=== PATIENT | female | born 1970 | race Caucasian/White ===

== ENCOUNTER 2016-11-12 04:37 | Inpatient (IN) | payer OTHER ==
[~2016-11-12] VITALS: Ht 165.1 cm; Wt 74.5 kg
[~2016-11-12 04:37] MED LIST: GABA300C PO
[2016-11-16 20:52] VITALS: BP 115/73; RESP 18
[2016-11-16] MEDS ORDERED: ONDANSETRON 4 MG INJ IV PRN (22:00)
[2016-11-16] MEDS ORDERED: ALBUTEROL 0.083% (NEB) 2.5 MG/3 ML AMP HHN PRN (22:00)
[2016-11-16] MEDS ORDERED: LACTULOSE 30ML CUP PO PRN (22:00)
[2016-11-16] MEDS ORDERED: NACL 0.9% 3 ML SYG IV SCH (22:00)
--- NOTE | 2016-11-16 22:00 | HP ---
Date/Time of Note Date/Time of Note DATE: 11/16/16 TIME: 21:59 Assessment/Plan VTE Prophylaxis VTE Prophylaxis Intervention: anti-embolic stocking Assessment/Plan Assessment/Plan 1) Metabolic Encephalopathy - Admit to Med-Surg - Labs now: CBC, CMP, Ammonia, PT/INR, UA - Continue all medications that were recommended upon transfer to us. 2) Cirrhosis/Chronic Liver Failure with history of multiple paracenteses 3) Amphetamine Abuse - Monitor/be prepared for withdrawl symptoms 4) Psychiatric Problem - Consider Psych eval if her mentation improved - Consider Social Service/Discharge Planning evaluation 5) UTI (treated at [facility], asymptomatic) - UA ordered to confirm cure. HPI/ROS Admit Date/Time Admit Date/Time Nov 16, 2016 at 20:10 Hx of Present Illness This is a 46 year old female with known liver cirrhosis and drug abuse, methamphetamine in particular, who is a Direct Admit as a transfer patient from [facility] for capitation purposes. She was originally admitted there on 11/11/16 and presented with multiple complaints, most specifically, abdominal pain and all-over body pain. Ultimately, she was found to have an E. coli UTI that was treated and Metabolic Encephalopathy that seems to have become worse a day or so before this transfer was arranged. She had multiple other diagnoses. During that stay, she was Consulted on by Neurology. Review of the records from [place] show that she is well-known to EMS and that she looks worse and that her health seems to be declining. She recently spent 9 months in a SNF but was "discharged to ". They called [facility] at and the front dest lady said she left [facility] and [facility] she was there on Hospice but that she did not have access to the medical record and we have to call back in the morning to speak with the Medical Records Dept. or the nurses that took care of her. Review of the records shows that patient was also evaulated by Neurologist, Dr. Arizmendi, but patient was unable to complete the EEG or the CTA of head/neck becasue she culd not lie still enough. Of not was that her Ammonia Level was "elevated" but patient refused her Lactulose by spitting it out, using profanity at times. The Neurologist signed off the case indicating that patient' s symptoms appear to be partially psychogenic, and, she seemed to be back to her baseline. ROS General: Admits: Denies: Fever, Chills, Eyes: Admits: Poor vision, blind in 1 eye Denies: HENT: Admits: Denies: Ear Pain/Pressure, Sore Throat Cardiovascular: Admits: Denies: Chest Pain, Palpitations, Leg Swelling Pulmonary: Admits: Denies: Cough, Wheeze, Shortness of Breath Gastrointestinal: Admits: Abdominal Pain, mild Denies: Nausea, Vomiting, Diarrhea, Blood in Stool, Black-Colored Stool Urogenital: Admits: Denies: Burning with Urination, Urinary Frequency Musculoskeletal: Admits: General body pains - chronic, no different than what she usually gets Denies: Neurological: Admits: Denies: Headache, Dizziness, Numbness, Tingling, Shooting Pains Integumentary: Admits: Denies: Rash, Itch PMH/Family/Social Past Medical History CVA; Diabetes; Myocardial Infarction; Blindness, 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 coli Acute Cystitis; History of Seizure Disorder as a Child Past Surgical History Multiple Paracenteses; Thoracentesis Family History Significant Family History: heart disease (Father: [place]) Social History Patient is Homeless, has 1 biological son and 8 "street sons" Alcohol Use: sober (Last drink in 2012, used to drink heavily) Smoking Status: Former smoker (Quit over 30 days ago, but was a heavy smoker) Drug Use: other (Methamphetamines, currently. Last use 1 week ago) Exam/Review of Systems Vital Signs Vitals Vital Signs Date Time Temp Pulse Resp B/P Pulse Ox O2 Delivery O2 Flow Rate FiO2 11/16/16 20:52 98.2 74 18 115/73 96 Exam Exam General: Patient is alert, but mumbles. Occasionally answers questions appropriately, but inevitably starts talking about another topic, but somewhat mumbling, making it difficult to understand the specifics, but enough to know she has strayed from the question at hand. Eyes: Sclera White, EOMI HENT: Normocephalic/Atraumatic, External Ears/Nose Normal, Moist Mucus Membranes Neck: Supple, Trachea Midline Cardiovascular: Normal Rate, Normal Rhythm, Normal S1 and S2, No Murmur, No Extra Sounds Pulmonary: Clear to Auscultation Bilaterally, Normal Respiratory Effort, No Rales, Rhonchi or Wheezes Gastrointestinal: Normoactive Bowel Sounds, Soft, Mild tenderness, no guarding or rebound. Mild distention. No fluid wave.Unable to adequately evaluate internal organs due to abdominal distention. Urogenital: Deferred Musculoskeletal: Normal Muscle Bulk and Tone Neurological: CN II - XII Grossly Intact, Non-Focal Integumentary: Normal Moisture and Temperature, Good Turgor, No Jaundice, No Rash Lymphatic: No Cervical Lymphadenopathy Psychiatric: Appropriate Mood and Affect, Good Eye Contact JANN WILLIS DO Nov 16, 2016 22:00 JANN WILLIS DO Nov 16, 2016 22:00
[2016-11-16] MEDS: FAMOTIDINE 20 MG INJ IV SCH (22:49)
[2016-11-16 23:19] LABS: ADD SCAN DIFF NO
[2016-11-16 23:20] LABS: ABNORMAL IP MESSAGE 1; HEMATOCRIT 39.3 % (37.0-47.0); HEMOGLOBIN 12.9 g/dl (12.0-16.0); MEAN CORPUSCULAR HEMOGLOBIN 33.1 pg (29.0-33.0); MEAN CORPUSCULAR HGB CONC 32.8 g/dl (32.0-37.0); MEAN CORPUSCULAR VOLUME 100.8 fl (82.0-101.0); PLATELET COUNT 80 10^3/UL (140-415); WHITE BLOOD COUNT 2.9 10^3/ul (4.8-10.8)
[2016-11-16] MEDS ORDERED: GLUCOSE GEL 15 GRAM TUBE PO PRN ×2 (23:30)
[2016-11-16] MEDS ORDERED: GLUCOSE GEL 15 GRAM TUBE BUCCAL PRN (23:30)
[2016-11-16] MEDS ORDERED: GLUCAGON 1 MG INJ IM PRN (23:30)
[2016-11-16] MEDS ORDERED: DEXTROSE 50% 50 ML SYRINGE IV PRN ×2 (23:30)
[2016-11-16 23:31] LABS: ALBUMIN 2.1 g/dl (3.3-4.9); INR 1.76; PROTIME 20.7 Sec (12.2-14.2); PT RATIO 1.6
[2016-11-16 23:32] LABS: PARTIAL THROMBOPLASTIN TIME 34.3 Sec (25.0-35.0); POTASSIUM 3.8 mmol/L (3.5-5.1)
[2016-11-16 23:34] LABS: ALBUMIN/GLOBULIN RATIO 0.53; BILIRUBIN,INDIRECT 1.3 mg/dl (0-1.1); BILIRUBIN,TOTAL 1.3 mg/dl (0.2-1.3); CREATININE 0.58 mg/dl (0.44-1.00)
[2016-11-16 23:35] LABS: CALCIUM 7.3 mg/dl (8.4-10.2)
[2016-11-16] MEDS: morphine 2 MG INJ IV PRN (23:40)
[2016-11-17] MEDS: ACCU-CHEK XX SCH (02:00)
[2016-11-17] MEDS ORDERED: ACCU-CHEK XX SCH (02:00)
[2016-11-17 02:33] LABS: EOSINOPHILS # 0.2 10^3/ul (0.0-0.5); LYMPHOCYTES # 0.2 10^3/ul (0.8-2.9); MONOCYTE # 0.1 10^3/ul (0.3-0.9); NEUTROPHIL # 2.4 10^3/ul (1.6-7.5)
[2016-11-17 02:34] LABS: PLATELET ESTIMATE PLT APPEAR DECREASED
[2016-11-17 03:38] VITALS: Ht 165.1 cm; Wt 74.5 kg
[2016-11-17 04:22] LABS: LACTIC ACID 1.7 mmol/L (0.5-2.2)
[2016-11-17 06:24] LABS: ADD SCAN DIFF NO
[2016-11-17 06:27] LABS: ABNORMAL IP MESSAGE 1; BASOPHILS % 1.1 % (0.0-2.0); EOSINOPHILS # 0.2 10^3/ul (0.0-0.5); EOSINOPHILS % 7.8 % (0.0-7.0); HEMATOCRIT 36.9 % (37.0-47.0); HEMOGLOBIN 12.2 g/dl (12.0-16.0); LYMPHOCYTES # 0.6 10^3/ul (0.8-2.9); LYMPHOCYTES % 20.1 % (15.0-51.0); MEAN CORPUSCULAR HEMOGLOBIN 33.2 pg (29.0-33.0); MEAN CORPUSCULAR HGB CONC 33.1 g/dl (32.0-37.0); MEAN CORPUSCULAR VOLUME 100.5 fl (82.0-101.0); MONOCYTE # 0.3 10^3/ul (0.3-0.9); MONOCYTES % 9.9 % (0.0-11.0); NEUTROPHIL # 1.7 10^3/ul (1.6-7.5); NEUTROPHILS % 60.7 % (39.0-77.0); PLATELET COUNT 82 10^3/UL (140-415); RED BLOOD COUNT 3.67 10^6/ul (4.20-5.40); RED CELL DISTRIBUTION WIDTH 17.7 % (11.5-14.5); WHITE BLOOD COUNT 2.8 10^3/ul (4.8-10.8)
[2016-11-17 06:41] LABS: POTASSIUM 3.8 mmol/L (3.5-5.1)
[2016-11-17 06:43] LABS: ALBUMIN/GLOBULIN RATIO 0.54; BILIRUBIN,INDIRECT 1.4 mg/dl (0-1.1); BILIRUBIN,TOTAL 1.4 mg/dl (0.2-1.3); CALCIUM 7.3 mg/dl (8.4-10.2); CREATININE 0.52 mg/dl (0.44-1.00); TOTAL PROTEIN 5.7 g/dl (6.1-8.1)
[2016-11-17] MEDS: morphine 2 MG INJ IV PRN ×4 (07:00→22:20)
[2016-11-17 07:34] VITALS: BP 126/69; RESP 16
[2016-11-17] MEDS: INSULIN ASPART [NOVOLOG] 3 ML PEN SC SCH ×4 (08:15→21:00)
[2016-11-17] MEDS: THIAMINE 100 MG TAB PO SCH (09:00)
[2016-11-17] MEDS: FAMOTIDINE 20 MG INJ IV SCH ×2 (09:00→21:38)
--- NOTE | 2016-11-17 16:16 | PN ---
Date/Time of Note Date/Time of Note DATE: 11/17/16 TIME: 16:13 Assessment/Plan VTE Prophylaxis VTE Prophylaxis Intervention: heparin Assessment/Plan Assessment/Plan 1) Metabolic Encephalopathy 2) Cirrhosis/Chronic Liver Failure with history of multiple paracenteses 3) Amphetamine Abuse - Monitor/be prepared for withdrawl symptoms 4) Psychiatric Problem - Consider Psych eval if her mentation improved - Consider Social Service/Discharge Planning evaluation 5) UTI (treated at [facility], asymptomatic) Exam/Review of Systems Vital Signs Vitals Vital Signs Date Time Temp Pulse Resp B/P Pulse Ox O2 Delivery O2 Flow Rate FiO2 11/17/16 07:34 97.7 63 16 126/69 97 Intake and Output 11/16/16 11/16/16 11/17/16 15:00 23:00 07:00 Intake Total 720 ml Balance 720 ml Exam General: alert awake but doesn;t like to talk to me Eyes: Sclera White, EOMI HENT: Normocephalic/Atraumatic, External Ears/Nose Normal, Moist Mucus Membranes Neck: Supple, Trachea Midline Cardiovascular: Normal Rate, Normal Rhythm, Normal S1 and S2, No Murmur, No Extra Sounds Pulmonary: Clear to Auscultation Bilaterally, Normal Respiratory Effort, No Rales, Rhonchi or Wheezes Gastrointestinal: Normoactive Bowel Sounds, Soft, Mild tenderness, no guarding or rebound. Mild distention. No fluid wave.Unable to adequately evaluate internal organs due to abdominal distention. Urogenital: Deferred Musculoskeletal: Normal Muscle Bulk and Tone Neurological: CN II - XII Grossly Intact, Non-Focal Results Result Diagram: 11/17/16 0557 11/17/16 0557 Results 24 hrs Laboratory Tests Test 11/16/16 21:31 11/16/16 23:00 11/16/16 23:01 11/17/16 05:57 Bedside Glucose 95 Lactic Acid Level 1.7 Ammonia 49 H White Blood Count 2.9 L 2.8 L Red Blood Count 3.90 L 3.67 L Hemoglobin 12.9 12.2 Hematocrit 39.3 36.9 L Mean Corpuscular Volume 100.8 # 100.5 Mean Corpuscular Hemoglobin 33.1 #H 33.2 H Mean Corpuscular Hemoglobin Concent 32.8 33.1 Red Cell Distribution Width 18.0 H 17.7 H Platelet Count 80 L 82 L Mean Platelet Volume 10.0 11.0 H Neutrophils % 84.0 H 60.7 Lymphocytes % 6.0 L 20.1 Monocytes % 4.0 9.9 Eosinophils % 6.0 7.8 H Neutrophils # 2.4 1.7 Lymphocytes # 0.2 L 0.6 L Monocytes # 0.1 L 0.3 Eosinophils # 0.2 0.2 Platelet Estimate PLT APPEAR DECREASED Prothrombin Time 20.7 H Prothrombin Time Ratio 1.6 INR International Normalized Ratio 1.76 Activated Partial Thromboplast Time 34.3 Sodium Level 137 137 Potassium Level 3.8 3.8 Chloride Level 101 105 Carbon Dioxide Level 29 26 Anion Gap 11 10 Blood Urea Nitrogen 10 10 Creatinine 0.58 0.52 Glucose Level 138 83 # Calcium Level 7.3 L 7.3 L Total Bilirubin 1.3 1.4 H Direct Bilirubin 0.00 0.00 Indirect Bilirubin 1.3 H 1.4 H Aspartate Amino Transf (AST/SGOT) 84 H 89 H Alanine Aminotransferase (ALT/SGPT) 66 59 Alkaline Phosphatase 106 96 Total Protein 6.0 L 5.7 L Albumin 2.1 L 2.0 L Globulin 3.90 H 3.70 H Albumin/Globulin Ratio 0.53 0.54 Basophils % 1.1 Nucleated Red Blood Cells % 0.0 Basophils # 0.0 Nucleated Red Blood Cells # 0.0 Test 11/17/16 08:01 11/17/16 11:49 Bedside Glucose 97 90 Medications Medications Current Medications Ondansetron HCl (Zofran Inj) 4 mg Q6H PRN IV NAUSEA AND/OR VOMITING; Start at 22:00 Famotidine (Pepcid Iv) 20 mg Q12 IV Last administered on 11/16/16t 22:49; Admin Dose 20 MG; Start 11/16/16 at 22:00; Stop 11/17/16 at 23:59 Lorazepam (Ativan) 1 mg Q6H PRN IV ANXIETY; Start 11/16/16 at 22:00 Thiamine HCl (Vitamin B1) 500 mg DAILY PO ; Start 11/17/16 at 09:00 Lactulose (Enulose) 10 gm BID PRN PO CONSTIPATION; Start 11/16/16 at 22:00 Diagnostic Test (Pha) (Accucheck) 1 ea 02 XX ; Start 11/17/16 at 02:00 Miscellaneous Information 1 ea NOTE XX ; Start 11/16/16 at 23:30 Glucose (Glutose) 15 gm Q15M PRN PO DECREASED GLUCOSE; Start 11/16/16 at 23:30 Glucose (Glutose) 22.5 gm Q15M PRN PO DECREASED GLUCOSE; Start 11/16/16 at 23: 30 Dextrose (D50w Syringe) 25 ml Q15M PRN IV DECREASED GLUCOSE; Start 11/16/16 at 23:30 Dextrose (D50w Syringe) 50 ml Q15M PRN IV DECREASED GLUCOSE; Start 11/16/16 at 23:30 Glucagon (Glucagen) 1 mg Q15M PRN IM DECREASED GLUCOSE; Start 11/16/16 at 23:30 Glucose (Glutose) 15 gm Q15M PRN BUCCAL DECREASED GLUCOSE; Start 11/16/16 at 23 :30 Morphine Sulfate (morphine) 2 mg Q4H PRN IV pain Last administered on t 07:00; Admin Dose 2 MG; Start 11/16/16 at 23:30 Influenza Virus Vaccine (Fluzone) 0.5 ml ONCE ONCE IM* ; Start 11/18/16 at 09:00 ; Stop 11/18/16 at 09:01 Famotidine (Pepcid) 20 mg Q12 PO ; Start 11/18/16 at 09:00 SHAHRIAR BAEZ MD Nov 17, 2016 16:16
[2016-11-17] MEDS: LORAZEPAM 2 MG INJ IV PRN (19:06)
[2016-11-17 19:55] VITALS: BP 115/70; RESP 18
[2016-11-17 23:13] LABS: ADD UMIC YES; URINE BILIRUBIN (Dip) 1+ (NEGATIVE); URINE BLOOD (Dip) 3+ (NEGATIVE); URINE COLOR DK. YELLOW (YELLOW); URINE GLUCOSE (Dip) NEGATIVE (NEGATIVE); URINE KETONES (Dip) NEGATIVE (NEGATIVE); URINE LEUKOCYTE ESTERASE (Dip) NEGATIVE (NEGATIVE); URINE NITRITE (Dip) POSITIVE (NEGATIVE); URINE TOTAL PROTEIN (Dip) TRACE (NEGATIVE); URINE UROBILINOGEN (Dip) 2.0 E.U./dL (0.1-1.0)
[2016-11-17 23:29] LABS: ICTOTEST POSITIVE (NEGATIVE)
[2016-11-17 23:30] LABS: URINE RBCS >50 /HPF (0)
[2016-11-17 23:32] LABS: BACTERIA,URINE MODERATE; MUCUS,URINE FEW; SQUAMOUS EPITHELIAL CELL,UR MODERATE
[2016-11-18] MEDS: LORAZEPAM 2 MG INJ IV PRN ×2 (01:25→22:51)
[2016-11-18] MEDS: ACCU-CHEK XX SCH (02:00)
[2016-11-18] MEDS: morphine 2 MG INJ IV PRN ×5 (02:54→22:45)
[2016-11-18 07:36] VITALS: BP 111/70; RESP 16
[2016-11-18] MEDS: INSULIN ASPART [NOVOLOG] 3 ML PEN SC SCH ×4 (08:09→21:00)
[2016-11-18] MEDS: FAMOTIDINE 20 MG TAB PO SCH ×2 (09:00→21:19)
[2016-11-18] MEDS: THIAMINE 100 MG TAB PO SCH (09:00)
[2016-11-18] MEDS ORDERED: INFLUENZA VIRUS VACCINE 0.5 ML (DISPENSING) IM* ONE (09:00)
--- NOTE | 2016-11-18 18:40 | PN ---
Date/Time of Note Date/Time of Note DATE: 11/18/16 TIME: 18:40 Assessment/Plan VTE Prophylaxis VTE Prophylaxis Intervention: SCD's Lines/Catheters IV Catheter Type (from Nrsg): Saline Lock Assessment/Plan Assessment/Plan 1) Metabolic Encephalopathy 2) Cirrhosis/Chronic Liver Failure with history of multiple paracenteses 3) Amphetamine Abuse - Monitor/be prepared for withdrawl symptoms 4) Psychiatric Problem Sw consult, 5) UTI (treated at [facility], asymptomatic) Subjective 24 Hr Interval Summary Free Text/Dictation c/o back pain asking for IV dilaudid Exam/Review of Systems Vital Signs Vitals Vital Signs Date Time Temp Pulse Resp B/P Pulse Ox O2 Delivery O2 Flow Rate FiO2 11/18/16 07:36 98.6 78 16 111/70 94 Intake and Output 11/17/16 11/17/16 11/18/16 15:00 23:00 07:00 Intake Total 240 ml 360 ml Output Total 150 ml Balance 90 ml 360 ml Results Result Diagram: 11/17/16 0557 11/17/16 0557 Results 24 hrs Laboratory Tests Test 11/17/16 21:37 11/17/16 22:15 11/18/16 02:08 11/18/16 07:53 Bedside Glucose 131 82 75 Urine Color DK. YELLOW Urine Clarity CLEAR Urine pH 6.5 Urine Specific [place] 1.015 Urine Ketones NEGATIVE Urine Nitrite POSITIVE H Urine Bilirubin 1+ H Urine Ictotest POSITIVE Urine Urobilinogen 2.0 E.U./dL H Urine Leukocyte Esterase NEGATIVE Urine Microscopic RBC >50 Urine Microscopic WBC 5-10 Urine Squamous Epithelial Cells MODERATE Urine Bacteria MODERATE Urine Mucus FEW Urine Hemoglobin 3+ H Urine Glucose NEGATIVE Urine Total Protein TRACE Test 11/18/16 12:19 11/18/16 17:11 Bedside Glucose 94 105 Medications Medications Current Medications Ondansetron HCl (Zofran Inj) 4 mg Q6H PRN IV NAUSEA AND/OR VOMITING; Start at 22:00 Lorazepam (Ativan) 1 mg Q6H PRN IV ANXIETY Last administered on 11/18/16t 01:25 ; Admin Dose 1 MG; Start 11/16/16 at 22:00 Thiamine HCl (Vitamin B1) 500 mg DAILY PO ; Start 11/17/16 at 09:00 Lactulose (Enulose) 10 gm BID PRN PO CONSTIPATION; Start 11/16/16 at 22:00 Diagnostic Test (Pha) (Accucheck) 1 ea 02 XX ; Start 11/17/16 at 02:00 Miscellaneous Information 1 ea NOTE XX ; Start 11/16/16 at 23:30 Glucose (Glutose) 15 gm Q15M PRN PO DECREASED GLUCOSE; Start 11/16/16 at 23:30 Glucose (Glutose) 22.5 gm Q15M PRN PO DECREASED GLUCOSE; Start 11/16/16 at 23: 30 Dextrose (D50w Syringe) 25 ml Q15M PRN IV DECREASED GLUCOSE; Start 11/16/16 at 23:30 Dextrose (D50w Syringe) 50 ml Q15M PRN IV DECREASED GLUCOSE; Start 11/16/16 at 23:30 Glucagon (Glucagen) 1 mg Q15M PRN IM DECREASED GLUCOSE; Start 11/16/16 at 23:30 Glucose (Glutose) 15 gm Q15M PRN BUCCAL DECREASED GLUCOSE; Start 11/16/16 at 23 :30 Morphine Sulfate (morphine) 2 mg Q4H PRN IV pain Last administered on t 17:50; Admin Dose 2 MG; Start 11/16/16 at 23:30 Famotidine (Pepcid) 20 mg Q12 PO ; Start 11/18/16 at 09:00 SHAHRIAR BAEZ MD Nov 18, 2016 18:40
[2016-11-18 19:53] VITALS: BP 117/70; RESP 20
[2016-11-19] MEDS: ACCU-CHEK XX SCH (02:00)
[2016-11-19] MEDS: morphine 2 MG INJ IV PRN ×2 (02:45→07:22)
[2016-11-19] MEDS: INSULIN ASPART [NOVOLOG] 3 ML PEN SC SCH ×4 (08:15→20:29)
[2016-11-19] MEDS: FAMOTIDINE 20 MG TAB PO SCH ×2 (08:59→20:29)
[2016-11-19] MEDS: THIAMINE 100 MG TAB PO SCH (08:59)
--- NOTE | 2016-11-19 11:51 | PN ---
Date/Time of Note Date/Time of Note DATE: 11/19/16 TIME: 11:49 Assessment/Plan VTE Prophylaxis VTE Prophylaxis Intervention: SCD's Lines/Catheters IV Catheter Type (from Nrsg): Saline Lock Assessment/Plan Assessment/Plan 1) Metabolic Encephalopathy 2) Cirrhosis/Chronic Liver Failure with history of multiple paracenteses 3) Amphetamine Abuse 4) Psychiatric Problem 5) UTI (treated at [facility], asymptomatic) non compliance, refusing to talk will d/c all IV morphine, IV ativan, use PO pain meds and PO ativan PT evaluation and treatment SW following patient Subjective 24 Hr Interval Summary Free Text/Dictation pt refused to talk, sleeping, she has been refusing to talk to other Healthcare providers and ancillary staff Exam/Review of Systems Vital Signs Vitals Vital Signs Date Time Temp Pulse Resp B/P Pulse Ox O2 Delivery O2 Flow Rate FiO2 11/18/16 19:53 98.3 70 20 117/70 94 Intake and Output 11/18/16 11/18/16 11/19/16 15:00 23:00 07:00 Intake Total 120 ml 360 ml Output Total 400 ml Balance -280 ml 360 ml Exam General: alert awake but doesn;t like to talk to me Eyes: Sclera White, EOMI HENT: Normocephalic/Atraumatic, External Ears/Nose Normal, Moist Mucus Membranes Neck: Supple, Trachea Midline Cardiovascular: Normal Rate, Normal Rhythm, Normal S1 and S2, No Murmur, No Extra Sounds Pulmonary: Clear to Auscultation Bilaterally, Normal Respiratory Effort, No Rales, Rhonchi or Wheezes Gastrointestinal: Normoactive Bowel Sounds, Soft, Mild tenderness, no guarding or rebound. Mild distention. No fluid wave.Unable to adequately evaluate internal organs due to abdominal distention. Urogenital: Deferred Musculoskeletal: Normal Muscle Bulk and Tone Neurological: CN II - XII Grossly Intact, Non-Focal Results Result Diagram: 11/17/16 0557 11/17/16 0557 Results 24 hrs Laboratory Tests Test 11/18/16 12:19 11/18/16 17:11 11/18/16 21:18 11/19/16 08:03 Bedside Glucose 94 105 102 102 Medications Medications Current Medications Thiamine HCl (Vitamin B1) 500 mg DAILY PO ; Start 11/17/16 at 09:00 Lactulose (Enulose) 10 gm BID PRN PO CONSTIPATION; Start 11/16/16 at 22:00 Diagnostic Test (Pha) (Accucheck) 1 ea 02 XX ; Start 11/17/16 at 02:00 Miscellaneous Information 1 ea NOTE XX ; Start 11/16/16 at 23:30 Glucose (Glutose) 15 gm Q15M PRN PO DECREASED GLUCOSE; Start 11/16/16 at 23:30 Glucose (Glutose) 22.5 gm Q15M PRN PO DECREASED GLUCOSE; Start 11/16/16 at 23: 30 Dextrose (D50w Syringe) 25 ml Q15M PRN IV DECREASED GLUCOSE; Start 11/16/16 at 23:30 Dextrose (D50w Syringe) 50 ml Q15M PRN IV DECREASED GLUCOSE; Start 11/16/16 at 23:30 Glucagon (Glucagen) 1 mg Q15M PRN IM DECREASED GLUCOSE; Start 11/16/16 at 23:30 Glucose (Glutose) 15 gm Q15M PRN BUCCAL DECREASED GLUCOSE; Start 11/16/16 at 23 :30 Famotidine (Pepcid) 20 mg Q12 PO Last administered on 11/18/16t 21:19; Admin Dose 20 MG; Start 11/18/16 at 09:00 Ondansetron HCl (Zofran Inj) 4 mg Q4H PRN IV NAUSEA AND/OR VOMITING; Start at 14:00; Status SHAHRIAR WEN MD Nov 19, 2016 11:51
[2016-11-19] MEDS ORDERED: ACETAMINOPHEN 325 MG TAB PO PRN (12:00)
[2016-11-19] MEDS ORDERED: ONDANSETRON 4 MG INJ IV PRN (12:00)
[2016-11-19] MEDS ORDERED: HYDROCODONE/APAP (5/325) TAB PO PRN (12:00)
[2016-11-19] MEDS ORDERED: DEXTROSE 5%-0.45% NACL 1,000 ML IV PRN (13:00)
[2016-11-19 19:56] VITALS: BP 107/57; RESP 20
[2016-11-19] MEDS: LORAZEPAM 1 MG TAB PO PRN (20:29)
[2016-11-20] MEDS: ACCU-CHEK XX SCH (02:00)
[2016-11-20] MEDS: LORAZEPAM 1 MG TAB PO PRN (05:04)
[2016-11-20] MEDS: traMADol 50 MG TAB GTB PRN ×2 (05:04→11:43)
[2016-11-20 08:00] VITALS: BP 116/74; RESP 18
[2016-11-20] MEDS: INSULIN ASPART [NOVOLOG] 3 ML PEN SC SCH ×4 (08:13→20:54)
[2016-11-20] MEDS: FAMOTIDINE 20 MG TAB PO SCH ×2 (08:15→20:54)
[2016-11-20] MEDS: THIAMINE 100 MG TAB PO SCH (08:15)
--- NOTE | 2016-11-20 13:21 | PN ---
Date/Time of Note Date/Time of Note DATE: 11/20/16 TIME: 13:20 Assessment/Plan VTE Prophylaxis VTE Prophylaxis Intervention: SCD's Lines/Catheters IV Catheter Type (from Nrsg): Saline Lock Assessment/Plan Assessment/Plan 1) Metabolic Encephalopathy 2) Cirrhosis/Chronic Liver Failure with history of multiple paracenteses 3) Amphetamine Abuse 4) Psychiatric Problem 5) UTI (treated at [facility], asymptomatic) non compliance, refusing to talk will d/c all IV morphine, IV ativan, use PO pain meds and PO ativan PT evaluation and treatment SW following patient Subjective 24 Hr Interval Summary Free Text/Dictation pt stable, still c/o pain Exam/Review of Systems Vital Signs Vitals Vital Signs Date Time Temp Pulse Resp B/P Pulse Ox O2 Delivery O2 Flow Rate FiO2 11/20/16 08:00 97.9 78 18 116/74 97 Intake and Output 11/19/16 11/19/16 11/20/16 15:00 23:00 07:00 Intake Total 700 ml 480 ml Balance 700 ml 480 ml Results Result Diagram: 11/17/16 0557 11/17/16 0557 Results 24 hrs Laboratory Tests Test 11/19/16 16:52 11/19/16 20:26 11/20/16 07:55 11/20/16 11:47 Bedside Glucose 111 129 104 90 Medications Medications Current Medications Thiamine HCl (Vitamin B1) 500 mg DAILY PO Last administered on 11/20/16t 08:15 ; Admin Dose 500 MG; Start 11/17/16 at 09:00 Lactulose (Enulose) 10 gm BID PRN PO CONSTIPATION; Start 11/16/16 at 22:00 Diagnostic Test (Pha) (Accucheck) 1 ea 02 XX ; Start 11/17/16 at 02:00 Miscellaneous Information 1 ea NOTE XX ; Start 11/16/16 at 23:30 Glucose (Glutose) 15 gm Q15M PRN PO DECREASED GLUCOSE; Start 11/16/16 at 23:30 Glucose (Glutose) 22.5 gm Q15M PRN PO DECREASED GLUCOSE; Start 11/16/16 at 23: 30 Dextrose (D50w Syringe) 25 ml Q15M PRN IV DECREASED GLUCOSE; Start 11/16/16 at 23:30 Dextrose (D50w Syringe) 50 ml Q15M PRN IV DECREASED GLUCOSE; Start 11/16/16 at 23:30 Glucagon (Glucagen) 1 mg Q15M PRN IM DECREASED GLUCOSE; Start 11/16/16 at 23:30 Glucose (Glutose) 15 gm Q15M PRN BUCCAL DECREASED GLUCOSE; Start 11/16/16 at 23 :30 Famotidine (Pepcid) 20 mg Q12 PO Last administered on 11/20/16 08:15; Admin Dose 20 MG; Start 11/18/16 at 09:00 Ondansetron HCl (Zofran Inj) 4 mg Q4H PRN IV NAUSEA AND/OR VOMITING; Start at 12:00 Lorazepam (Ativan) 1 mg Q6H PRN PO ANXIETY,agitation Last administered on 11/20 05:04; Admin Dose 1 MG; Start 11/19/16 at 12:00 Tramadol HCl 50 mg 50 mg Q6H PRN GTB mild , moderate, severe pain Last administered on 11/20/16 11:43; Admin Dose 50 MG; Start 11/19/16 at 12:30 Dextrose/Sodium Chloride (D5-1/2ns) 1,000 ml @ 50 mls/hr Q20H PRN IV DECREASED GLUCOSE; Start 11/19/16 at 13:00 SHAHRIAR BAEZ MD Nov 20, 2016 13:21
[2016-11-21] MEDS: ACCU-CHEK XX SCH (02:00)
[2016-11-21] MEDS: LORAZEPAM 1 MG TAB PO PRN ×3 (02:41→20:46)
[2016-11-21] MEDS: traMADol 50 MG TAB GTB PRN ×3 (04:26→20:47)
[2016-11-21 07:22] VITALS: BP 128/56; RESP 18
[2016-11-21] MEDS: INSULIN ASPART [NOVOLOG] 3 ML PEN SC SCH ×4 (08:15→20:42)
[2016-11-21] MEDS: THIAMINE 100 MG TAB PO SCH (08:57)
[2016-11-21] MEDS: FAMOTIDINE 20 MG TAB PO SCH ×2 (08:57→20:46)
--- NOTE | 2016-11-21 16:29 | PN ---
Date/Time of Note Date/Time of Note DATE: 11/21/16 TIME: 16:25 Assessment/Plan VTE Prophylaxis VTE Prophylaxis Intervention: SCD's Lines/Catheters IV Catheter Type (from Nrsg): Saline Lock Assessment/Plan Assessment/Plan 1) Metabolic Encephalopathy resolving 2) Cirrhosis/Chronic Liver Failure with history of multiple paracenteses 3) Amphetamine Abuse 4) Psychiatric Problem 5) UTI (treated at [facility], asymptomatic) non compliance, refusing to talk will d/c all IV morphine, IV ativan, use PO pain meds and PO ativan, will reassess tomorrow for paracentesis PT evaluation and treatment SW following patient Subjective 24 Hr Interval Summary Free Text/Dictation pt refused to talk to me, BP stable Exam/Review of Systems Vital Signs Vitals Vital Signs Date Time Temp Pulse Resp B/P Pulse Ox O2 Delivery O2 Flow Rate FiO2 11/21/16 07:22 98.5 75 18 128/56 96 Intake and Output 11/20/16 11/20/16 11/21/16 15:00 23:00 07:00 Intake Total 1680 ml Balance 1680 ml Exam General: alert awake but doesn;t like to talk to me Cardiovascular: Normal Rate, Normal Rhythm, Normal S1 and S2, No Murmur, No Extra Sounds Pulmonary: Clear to Auscultation Bilaterally, Normal Respiratory Effort, No Rales, Rhonchi or Wheezes Gastrointestinal: Normoactive Bowel Sounds, Soft, Mild tenderness, no guarding or rebound. Mild distention. No fluid wave. Musculoskeletal: Normal Muscle Bulk and Tone Neurological: CN II - XII Grossly Intact, Non-Focal Results Result Diagram: 11/17/16 0557 11/17/16 0557 Results 24 hrs Laboratory Tests Test 11/20/16 17:21 11/20/16 20:54 11/21/16 07:49 11/21/16 11:47 Bedside Glucose 85 117 102 90 Medications Medications Current Medications Thiamine HCl (Vitamin B1) 500 mg DAILY PO Last administered on 11/21/16t 08:57 ; Admin Dose 500 MG; Start 11/17/16 at 09:00 Lactulose (Enulose) 10 gm BID PRN PO CONSTIPATION; Start 11/16/16 at 22:00 Diagnostic Test (Pha) (Accucheck) 1 ea 02 XX ; Start 11/17/16 at 02:00 Miscellaneous Information 1 ea NOTE XX ; Start 11/16/16 at 23:30 Glucose (Glutose) 15 gm Q15M PRN PO DECREASED GLUCOSE; Start 11/16/16 at 23:30 Glucose (Glutose) 22.5 gm Q15M PRN PO DECREASED GLUCOSE; Start 11/16/16 at 23: 30 Dextrose (D50w Syringe) 25 ml Q15M PRN IV DECREASED GLUCOSE; Start 11/16/16 at 23:30 Dextrose (D50w Syringe) 50 ml Q15M PRN IV DECREASED GLUCOSE; Start 11/16/16 at 23:30 Glucagon (Glucagen) 1 mg Q15M PRN IM DECREASED GLUCOSE; Start 11/16/16 at 23:30 Glucose (Glutose) 15 gm Q15M PRN BUCCAL DECREASED GLUCOSE; Start 11/16/16 at 23 :30 Famotidine (Pepcid) 20 mg Q12 PO Last administered on 11/21/16 08:57; Admin Dose 20 MG; Start 11/18/16 at 09:00 Ondansetron HCl (Zofran Inj) 4 mg Q4H PRN IV NAUSEA AND/OR VOMITING; Start at 12:00 Lorazepam (Ativan) 1 mg Q6H PRN PO ANXIETY,agitation Last administered on 11/21 12:42; Admin Dose 1 MG; Start 11/19/16 at 12:00 Tramadol HCl 50 mg 50 mg Q6H PRN GTB mild , moderate, severe pain Last administered on 11/21/16 10:55; Admin Dose 50 MG; Start 11/19/16 at 12:30 Dextrose/Sodium Chloride (D5-1/2ns) 1,000 ml @ 50 mls/hr Q20H PRN IV DECREASED GLUCOSE; Start 11/19/16 at 13:00 SHAHRIAR BAEZ MD Nov 21, 2016 16:29
[2016-11-21 20:00] VITALS: BP 125/64; RESP 20
[2016-11-22] MEDS: ACCU-CHEK XX SCH (01:40)
[2016-11-22] MEDS: LORAZEPAM 1 MG TAB PO PRN ×3 (02:45→21:24)
[2016-11-22 06:03] LABS: ADD SCAN DIFF NO
[2016-11-22 06:34] LABS: INR 1.69; PT RATIO 1.6
[2016-11-22 06:47] LABS: ABNORMAL IP MESSAGE 1; HEMATOCRIT 37.7 % (37.0-47.0); HEMOGLOBIN 12.5 g/dl (12.0-16.0); MEAN CORPUSCULAR HEMOGLOBIN 33.2 pg (29.0-33.0); MEAN CORPUSCULAR HGB CONC 33.2 g/dl (32.0-37.0); MEAN PLATELET VOLUME 11.6 fl (7.4-10.4); PLATELET COUNT 64 10^3/UL (140-415); RED BLOOD COUNT 3.77 10^6/ul (4.20-5.40); RED CELL DISTRIBUTION WIDTH 17.4 % (11.5-14.5); WHITE BLOOD COUNT 2.7 10^3/ul (4.8-10.8)
[2016-11-22 06:50] LABS: ALBUMIN 2.1 g/dl (3.3-4.9)
[2016-11-22 06:51] LABS: POTASSIUM 3.8 mmol/L (3.5-5.1)
[2016-11-22 06:53] LABS: ALBUMIN/GLOBULIN RATIO 0.55; BILIRUBIN,INDIRECT 0.9 mg/dl (0-1.1); BILIRUBIN,TOTAL 0.9 mg/dl (0.2-1.3); CREATININE 0.56 mg/dl (0.44-1.00); TOTAL PROTEIN 5.9 g/dl (6.1-8.1)
[2016-11-22 06:54] LABS: CALCIUM 7.3 mg/dl (8.4-10.2)
[2016-11-22] MEDS: INSULIN ASPART [NOVOLOG] 3 ML PEN SC SCH ×4 (07:56→20:28)
[2016-11-22] MEDS: FAMOTIDINE 20 MG TAB PO SCH ×2 (07:57→21:00)
[2016-11-22] MEDS: THIAMINE 100 MG TAB PO SCH (07:57)
[2016-11-22] MEDS: traMADol 50 MG TAB GTB PRN ×2 (09:02→23:20)
--- NOTE | 2016-11-22 10:12 | PN ---
Date/Time of Note Date/Time of Note DATE: 11/22/16 TIME: 10:08 Assessment/Plan VTE Prophylaxis VTE Prophylaxis Intervention: SCD's Lines/Catheters IV Catheter Type (from Nrsg): Saline Lock Assessment/Plan Chief Complaint/Hosp Course Assessment/Plan: 46 F with: 1) Metabolic Encephalopathy - resolving - monitor for now - CM to help with placement (SW following patient) - PT evaluation and treatment 2) Cirrhosis/Chronic Liver Failure with history of multiple paracenteses - stable - monitor, continue lactulose prn, check ammonia level in AM as well. 3) Amphetamine Abuse - cessation 4) Psychiatric Problem - have d/c'ed all IV morphine, IV ativan - use PO pain meds and PO ativan prn 5) UTI (treated at [facility], asymptomatic) - monitor will reassess tomorrow for paracentesis Problems: Subjective 24 Hr Interval Summary Free Text/Dictation Pt asking for pain meds. Exam/Review of Systems Vital Signs Vitals Vital Signs Date Time Temp Pulse Resp B/P Pulse Ox O2 Delivery O2 Flow Rate FiO2 11/21/16 20:00 97.6 71 20 125/64 97 Intake and Output 11/21/16 11/21/16 11/22/16 15:00 23:00 07:00 Intake Total 720 ml 1280 ml Balance 720 ml 1280 ml Exam General: alert awake, NAD Cardiovascular: Normal Rate, Normal Rhythm, Normal S1 and S2, No Murmur, No Extra Sounds Pulmonary: Clear to Auscultation Bilaterally, Normal Respiratory Effort, No Rales, Rhonchi or Wheezes Gastrointestinal: Normoactive Bowel Sounds, Soft, Mild tenderness, no guarding or rebound. Mild distention. No fluid wave. Musculoskeletal: Normal Muscle Bulk and Tone Neurological: CN II - XII Grossly Intact, Non-Focal Results Result Diagram: 11/22/16 0530 11/22/16 0530 Results 24 hrs Laboratory Tests Test 11/21/16 11:47 11/21/16 17:35 11/21/16 20:27 11/22/16 05:30 Bedside Glucose 90 100 112 White Blood Count 2.7 L Red Blood Count 3.77 L Hemoglobin 12.5 Hematocrit 37.7 Mean Corpuscular Volume 100.0 Mean Corpuscular Hemoglobin 33.2 H Mean Corpuscular Hemoglobin Concent 33.2 Red Cell Distribution Width 17.4 H Platelet Count 64 #L Mean Platelet Volume 11.6 H Neutrophils % 56.5 Lymphocytes % 22.5 Monocytes % 12.4 H Eosinophils % 7.1 H Basophils % 1.1 Nucleated Red Blood Cells % 0.0 Neutrophils # 1.5 L Lymphocytes # 0.6 L Monocytes # 0.3 Eosinophils # 0.2 Basophils # 0.0 Nucleated Red Blood Cells # 0.0 Prothrombin Time 20.0 H Prothrombin Time Ratio 1.6 INR International Normalized Ratio 1.69 Activated Partial Thromboplast Time 37.0 H Sodium Level 133 L Potassium Level 3.8 Chloride Level 103 Carbon Dioxide Level 26 Anion Gap 8 Blood Urea Nitrogen 14 Creatinine 0.56 Glucose Level 133 Calcium Level 7.3 L Total Bilirubin 0.9 Direct Bilirubin 0.00 Indirect Bilirubin 0.9 Aspartate Amino Transf (AST/SGOT) 79 H Alanine Aminotransferase (ALT/SGPT) 58 Alkaline Phosphatase 141 H Total Protein 5.9 L Albumin 2.1 L Globulin 3.80 H Albumin/Globulin Ratio 0.55 Test 11/22/16 07:55 Bedside Glucose 106 Medications Medications Current Medications Thiamine HCl (Vitamin B1) 500 mg DAILY PO Last administered on 11/21/16t 08:57 ; Admin Dose 500 MG; Start 11/17/16 at 09:00 Lactulose (Enulose) 10 gm BID PRN PO CONSTIPATION; Start 11/16/16 at 22:00 Diagnostic Test (Pha) (Accucheck) 1 ea 02 XX ; Start 11/17/16 at 02:00 Miscellaneous Information 1 ea NOTE XX ; Start 11/16/16 at 23:30 Glucose (Glutose) 15 gm Q15M PRN PO DECREASED GLUCOSE; Start 11/16/16 at 23:30 Glucose (Glutose) 22.5 gm Q15M PRN PO DECREASED GLUCOSE; Start 11/16/16 at 23: 30 Dextrose (D50w Syringe) 25 ml Q15M PRN IV DECREASED GLUCOSE; Start 11/16/16 at 23:30 Dextrose (D50w Syringe) 50 ml Q15M PRN IV DECREASED GLUCOSE; Start 11/16/16 at 23:30 Glucagon (Glucagen) 1 mg Q15M PRN IM DECREASED GLUCOSE; Start 11/16/16 at 23:30 Glucose (Glutose) 15 gm Q15M PRN BUCCAL DECREASED GLUCOSE; Start 11/16/16 at 23 :30 Famotidine (Pepcid) 20 mg Q12 PO Last administered on 11/21/16 20:46; Admin Dose 20 MG; Start 11/18/16 at 09:00 Ondansetron HCl (Zofran Inj) 4 mg Q4H PRN IV NAUSEA AND/OR VOMITING; Start at 12:00 Lorazepam (Ativan) 1 mg Q6H PRN PO ANXIETY,agitation Last administered on 11/22 02:45; Admin Dose 1 MG; Start 11/19/16 at 12:00 Tramadol HCl 50 mg 50 mg Q6H PRN GTB mild , moderate, severe pain Last administered on 11/22/16 09:02; Admin Dose 50 MG; Start 11/19/16 at 12:30 Dextrose/Sodium Chloride (D5-1/2ns) 1,000 ml @ 50 mls/hr Q20H PRN IV DECREASED GLUCOSE; Start 11/19/16 at 13:00 YESENIA GUNN Nov 22, 2016 10:12
[2016-11-22 10:43] LABS: BASOPHIL # 0.1 10^3/ul (0.0-0.1); LYMPHOCYTES # 0.5 10^3/ul (0.8-2.9); MONOCYTE # 0.1 10^3/ul (0.3-0.9); NEUTROPHIL # 1.8 10^3/ul (1.6-7.5)
[2016-11-22 12:18] LABS: TOTAL CELLS COUNTED % 100
[2016-11-22 21:39] VITALS: BP 109/66; RESP 20
[2016-11-23] MEDS: ACCU-CHEK XX SCH (01:04)
[2016-11-23] MEDS: LORAZEPAM 1 MG TAB PO PRN ×3 (05:54→23:27)
[2016-11-23 06:04] LABS: ADD SCAN DIFF NO
[2016-11-23 06:26] LABS: ABNORMAL IP MESSAGE 1; BASOPHILS % 1.1 % (0.0-2.0); EOSINOPHILS # 0.2 10^3/ul (0.0-0.5); EOSINOPHILS % 7.7 % (0.0-7.0); HEMATOCRIT 35.6 % (37.0-47.0); LYMPHOCYTES # 0.6 10^3/ul (0.8-2.9); MEAN CORPUSCULAR HEMOGLOBIN 33.5 pg (29.0-33.0); MEAN CORPUSCULAR HGB CONC 33.7 g/dl (32.0-37.0); MEAN CORPUSCULAR VOLUME 99.4 fl (82.0-101.0); MEAN PLATELET VOLUME 11.4 fl (7.4-10.4); MONOCYTE # 0.3 10^3/ul (0.3-0.9); MONOCYTES % 10.3 % (0.0-11.0); NEUTROPHIL # 1.6 10^3/ul (1.6-7.5); NEUTROPHILS % 59.9 % (39.0-77.0); RED BLOOD COUNT 3.58 10^6/ul (4.20-5.40); RED CELL DISTRIBUTION WIDTH 17.2 % (11.5-14.5); WHITE BLOOD COUNT 2.7 10^3/ul (4.8-10.8)
[2016-11-23 06:46] LABS: PLATELET COUNT 61 10^3/UL (140-415)
[2016-11-23 07:14] LABS: CREATININE 0.53 mg/dl (0.44-1.00)
[2016-11-23 07:15] LABS: CALCIUM 7.4 mg/dl (8.4-10.2)
[2016-11-23] MEDS: INSULIN ASPART [NOVOLOG] 3 ML PEN SC SCH ×4 (08:15→20:57)
[2016-11-23 08:16] VITALS: BP 108/56; RESP 20
[2016-11-23] MEDS: FAMOTIDINE 20 MG TAB PO SCH ×2 (09:00→21:01)
[2016-11-23] MEDS: THIAMINE 100 MG TAB PO SCH (09:00)
--- NOTE | 2016-11-23 10:10 | PN ---
Date/Time of Note Date/Time of Note DATE: 11/23/16 TIME: 10:06 Assessment/Plan VTE Prophylaxis VTE Prophylaxis Intervention: SCD's Lines/Catheters IV Catheter Type (from Nrsg): Saline Lock Assessment/Plan Chief Complaint/Hosp Course Assessment/Plan: 46 F with: 1) Metabolic Encephalopathy - resolving - sec to HE (from cirrhosis) and UTI most likely - monitor for now - CM to help with placement (SW following patient) - PT evaluation and treatment 2) Cirrhosis/Chronic Liver Failure with history of multiple paracenteses - stable - monitor, continue lactulose prn, will give lactulose TID x 24 hrs, recheck ammonia level in AM 3) Amphetamine Abuse - cessation, and will d/c pain meds for now given non- compliance 4) Psychiatric Problem - have d/c'ed all IV morphine, IV ativan - use PO pain meds and PO ativan prn 5) UTI (treated at [facility], asymptomatic) - monitor will reassess tomorrow again for paracentesis Problems: Subjective 24 Hr Interval Summary Free Text/Dictation Pt refused to work with PT yesterday (despite giving assurances she would). Exam/Review of Systems Vital Signs Vitals Vital Signs Date Time Temp Pulse Resp B/P Pulse Ox O2 Delivery O2 Flow Rate FiO2 11/23/16 08:16 98.8 74 20 108/56 95 Intake and Output 11/22/16 11/22/16 11/23/16 15:00 23:00 07:00 Intake Total 840 ml 360 ml Balance 840 ml 360 ml Exam General: alert awake, NAD Cardiovascular: Normal Rate, Normal Rhythm, Normal S1 and S2, No Murmur, No Extra Sounds Pulmonary: Clear to Auscultation Bilaterally, Normal Respiratory Effort, No Rales, Rhonchi or Wheezes Gastrointestinal: Normoactive Bowel Sounds, Soft, Mild tenderness, no guarding or rebound. Mild distention. No fluid wave. Musculoskeletal: Normal Muscle Bulk and Tone Neurological: CN II - XII Grossly Intact, Non-Focal Results Result Diagram: 11/23/16 0545 11/23/16 0545 Results 24 hrs Laboratory Tests Test 11/22/16 11:56 11/22/16 17:25 11/22/16 20:00 11/23/16 05:45 Bedside Glucose 105 81 175 White Blood Count 2.7 L Red Blood Count 3.58 L Hemoglobin 12.0 Hematocrit 35.6 L Mean Corpuscular Volume 99.4 Mean Corpuscular Hemoglobin 33.5 H Mean Corpuscular Hemoglobin Concent 33.7 Red Cell Distribution Width 17.2 H Platelet Count 61 L Mean Platelet Volume 11.4 H Neutrophils % 59.9 Lymphocytes % 21.0 Monocytes % 10.3 Eosinophils % 7.7 H Basophils % 1.1 Nucleated Red Blood Cells % 0.0 Neutrophils # 1.6 Lymphocytes # 0.6 L Monocytes # 0.3 Eosinophils # 0.2 Basophils # 0.0 Nucleated Red Blood Cells # 0.0 Sodium Level 134 L Potassium Level 4.0 Chloride Level 104 Carbon Dioxide Level 28 Anion Gap 6 L Blood Urea Nitrogen 15 Creatinine 0.53 Glucose Level 103 Calcium Level 7.4 L Ammonia 39 H Test 11/23/16 08:04 Bedside Glucose 111 Medications Medications Current Medications Thiamine HCl (Vitamin B1) 500 mg DAILY PO Last administered on 11/21/16 08:57 ; Admin Dose 500 MG; Start 11/17/16 at 09:00 Lactulose (Enulose) 10 gm BID PRN PO CONSTIPATION; Start 11/16/16 at 22:00 Diagnostic Test (Pha) (Accucheck) 1 ea 02 XX ; Start 11/17/16 at 02:00 Miscellaneous Information 1 ea NOTE XX ; Start 11/16/16 at 23:30 Glucose (Glutose) 15 gm Q15M PRN PO DECREASED GLUCOSE; Start 11/16/16 at 23:30 Glucose (Glutose) 22.5 gm Q15M PRN PO DECREASED GLUCOSE; Start 11/16/16 at 23: 30 Dextrose (D50w Syringe) 25 ml Q15M PRN IV DECREASED GLUCOSE; Start 11/16/16 at 23:30 Dextrose (D50w Syringe) 50 ml Q15M PRN IV DECREASED GLUCOSE; Start 11/16/16 at 23:30 Glucagon (Glucagen) 1 mg Q15M PRN IM DECREASED GLUCOSE; Start 11/16/16 at 23:30 Glucose (Glutose) 15 gm Q15M PRN BUCCAL DECREASED GLUCOSE; Start 11/16/16 at 23 :30 Famotidine (Pepcid) 20 mg Q12 PO Last administered on 11/21/16 20:46; Admin Dose 20 MG; Start 11/18/16 at 09:00 Ondansetron HCl (Zofran Inj) 4 mg Q4H PRN IV NAUSEA AND/OR VOMITING; Start at 12:00 Lorazepam 1 mg 1 mg Q6H PRN PO ANXIETY,agitation Last administered on 05:54; Admin Dose 1 MG; Start 11/19/16 at 12:00 Dextrose/Sodium Chloride (D5-1/2ns) 1,000 ml @ 50 mls/hr Q20H PRN IV DECREASED GLUCOSE; Start 11/19/16 at 13:00 Diphenhydramine HCl (Benadryl) 25 mg Q12H PRN PO ITCHING; Start 11/22/16 at 10: 30 YESENIA GUNN Nov 23, 2016 10:10
[2016-11-23] MEDS ORDERED: LACTULOSE 30ML CUP PO SCH (10:30)
[2016-11-23] MEDS: LACTULOSE 30ML CUP PO SCH ×4 (10:53→22:00)
[2016-11-23 19:51] VITALS: BP 114/68; RESP 20
[2016-11-24] MEDS: ACCU-CHEK XX SCH (02:00)
[2016-11-24] MEDS: LACTULOSE 30ML CUP PO SCH (05:50)
[2016-11-24] MEDS: LORAZEPAM 1 MG TAB PO PRN (08:03)
[2016-11-24 08:04] VITALS: BP 107/60; RESP 16
[2016-11-24] MEDS: INSULIN ASPART [NOVOLOG] 3 ML PEN SC SCH ×4 (08:15→21:00)
[2016-11-24] MEDS: THIAMINE 100 MG TAB PO SCH (09:00)
[2016-11-24] MEDS: FAMOTIDINE 20 MG TAB PO SCH ×2 (09:00→21:41)
[2016-11-24] MEDS ORDERED: LACTULOSE 30ML CUP PO PRN (10:00)
--- NOTE | 2016-11-24 10:12 | PDOCDIS ---
Discharge Instructions CONDITION Patient Condition: Stable HOME CARE INSTRUCTIONS: Special Diet: Carb Controlled Low Salt ACTIVITY: Activity Restrictions: Slowly Increase Activity FOLLOW UP/APPOINTMENTS Appointments Please take your medications as prescribed, see your doctor in the clinic in 1 week. YESENIA GUNN Nov 24, 2016 10:12
[2016-11-24] MEDS ORDERED: LORA-441 PO (10:17)
[2016-11-24] MEDS ORDERED: ALBU8.5H3 INH (10:17)
[2016-11-24] MEDS ORDERED: GABA300C PO (10:17)
[2016-11-24] MEDS ORDERED: Thiamine PO (10:17)
[2016-11-24] MEDS ORDERED: LACT10SO5 PO (10:17)
--- NOTE | 2016-11-24 10:50 | DS ---
DATE OF ADMISSION: 11/16/2016 DATE OF DISCHARGE: 11/24/2016 A 46-year-old female originally admitted on 11/16/2014, being discharged home 11/24/2016 pending amm onia levels and ambulation status. HOSPITAL COURSE: This is a 46-year-old female who was transferred from outside hospital on 11/17/19 17. She initially presented to outside hospital with a history of chronic liver failure. She was ac tually sent in from the rehab facility, apparently on hospice with altered mental status. She was f ound with a UTI and she was given Rocephin for that at the outside hospital. She also had a right pl eural effusion which was likely chronic and probably hepatopulmonary syndrome, hydrothorax. But she had no shortness of breath so no thoracentesis was performed. In the meantime, she was found with positive methamphetamine use and mild rhabdomyolysis. She was treated for that at the outside [facility] and was transferred over here due to the insurance purposes. When she was here, she was minimal ly cooperative with the staff as far as ambulation status and not really working with physical thera py. She was found with slightly elevated ammonia levels and was given lactulose as well. Over the c ourse of her hospital stay she was treated for metabolic encephalopathy, thought to be secondary to a combination of hepatic encephalopathy and UTI. UTI resolved. Her hepatic encephalopathy was resol ving by the time of discharge. We were waiting for an ammonia level by the time of discharge and sh jc was given lactulose. In the meantime, she was also continued on thiamine medicine as well. Monit ored for any signs of withdrawal. We were cautious with giving her pain medicines and antianxiety m edicines, as there was signs of possible drug seeking behavior as well. Her vital signs have been st able. If she ambulates today and her ammonia level is in the normal range, she will be discharged to day in in improved condition and if she does go today, she will be sent with the following medicatio ns. DISCHARGE MEDICATIONS: 1. ProAir HFA 2 puffs inhaled q.4h. 2. Lactulose 10 grams p.o. b.i.d. 3. Ativan 0.5 mg p.o. b.i.d. p.r.n. 4. Thiamine 100 mg daily. 5. Gabapentin 300 mg p.o. t.i.d. 6. Continue to follow up with primary care doctor in the clinic in the next 1 to 2 weeks. FINAL DIAGNOSES: 1. Metabolic encephalopathy, thought to be secondary to hepatic encephalopathy and UTI, now improvi ng. 2. History of chronic liver failure and cirrhosis with a history of multiple paracenteses in the [facility], now on lactulose. 3. History of amphetamine abuse. 4. 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 5. History of anxiety and possible depression with questionable history of schizophrenia, now on At gladys p.r.n. and gabapentin with a history of hallucinations, stable. 6. Mild rhabdomyolysis resolved. 7. History of amphetamine abuse, counseled on cessation. 8. Mild lactic acidosis, resolved. 9. Prior history of questionable seizure disorder in the past. Time spent discharging patient 50 minutes. Dictated By: YESENIA NDIAYE/SASHA Conf#: [id number] DID#: [id number]
[2016-11-24] MEDS: DIPHENHYDRAMINE 25 MG CAP PO PRN (12:52)
[2016-11-24] MEDS ORDERED: LORAZEPAM 1 MG TAB PO SCH (15:30)
[2016-11-24 19:48] VITALS: BP 107/73; RESP 22
[2016-11-24] MEDS: HALOPERIDOL 5 MG INJ IM PRN (22:25)
[2016-11-24] MEDS: LORAZEPAM 2 MG INJ IV PRN (23:30)
[2016-11-25] MEDS: ACCU-CHEK XX SCH (02:00)
[2016-11-25] MEDS: LORAZEPAM 2 MG INJ IV PRN (03:15)
[2016-11-25] MEDS: HALOPERIDOL 5 MG INJ IM PRN (04:56)
[2016-11-25] MEDS ORDERED: morphine 4 MG/ML VIAL IV PRN (05:30)
[2016-11-25] MEDS ORDERED: DIPHENHYDRAMINE 50 MG INJ IV ONE (05:30)
[2016-11-25 06:05] LABS: ADD SCAN DIFF NO
[2016-11-25 06:12] LABS: ABNORMAL IP MESSAGE 1; BASOPHILS % 1.2 % (0.0-2.0); EOSINOPHILS # 0.1 10^3/ul (0.0-0.5); EOSINOPHILS % 5.7 % (0.0-7.0); HEMATOCRIT 34.7 % (37.0-47.0); HEMOGLOBIN 11.6 g/dl (12.0-16.0); LYMPHOCYTES # 0.5 10^3/ul (0.8-2.9); LYMPHOCYTES % 20.6 % (15.0-51.0); MEAN CORPUSCULAR HEMOGLOBIN 33.3 pg (29.0-33.0); MEAN CORPUSCULAR HGB CONC 33.4 g/dl (32.0-37.0); MEAN CORPUSCULAR VOLUME 99.7 fl (82.0-101.0); MEAN PLATELET VOLUME 11.7 fl (7.4-10.4); MONOCYTE # 0.3 10^3/ul (0.3-0.9); MONOCYTES % 11.3 % (0.0-11.0); NEUTROPHIL # 1.5 10^3/ul (1.6-7.5); NEUTROPHILS % 60.8 % (39.0-77.0); PLATELET COUNT 58 10^3/UL (140-415); RED BLOOD COUNT 3.48 10^6/ul (4.20-5.40); RED CELL DISTRIBUTION WIDTH 17.1 % (11.5-14.5); WHITE BLOOD COUNT 2.5 10^3/ul (4.8-10.8)
[2016-11-25 06:34] LABS: POTASSIUM 3.7 mmol/L (3.5-5.1)
[2016-11-25 06:37] LABS: CREATININE 0.48 mg/dl (0.44-1.00)
[2016-11-25 06:38] LABS: CALCIUM 7.2 mg/dl (8.4-10.2)
[2016-11-25 07:37] VITALS: BP 122/75; RESP 16
[2016-11-25] MEDS: INSULIN ASPART [NOVOLOG] 3 ML PEN SC SCH ×4 (07:50→21:00)
[2016-11-25] MEDS ORDERED: LORAZEPAM 1 MG TAB PO PRN (09:00)
[2016-11-25] MEDS: FAMOTIDINE 20 MG TAB PO SCH ×2 (09:00→23:31)
[2016-11-25] MEDS: THIAMINE 100 MG TAB PO SCH (09:00)
--- NOTE | 2016-11-25 10:13 | PN ---
Date/Time of Note Date/Time of Note DATE: 11/25/16 TIME: 10:10 Assessment/Plan VTE Prophylaxis VTE Prophylaxis Intervention: SCD's Lines/Catheters IV Catheter Type (from Nrsg): Saline Lock Urinary Cath still in place: No Assessment/Plan Chief Complaint/Hosp Course Assessment/Plan: 46 F with: 1) Metabolic Encephalopathy - resolving - sec to HE (from cirrhosis) and UTI most likely - monitor for now - CM to help with placement (SW following patient) - continue PT treatment - needs SNF 2) Cirrhosis/Chronic Liver Failure with history of multiple paracenteses - stable - monitor, continue lactulose 3) Amphetamine Abuse - cessation, and will d/c pain meds for now given non- compliance 4) Psychiatric Problem - have d/c'ed all IV morphine, IV ativan - use PO pain meds and haldol IM prn - will get tele psych to further assess psychiatric issues 5) UTI (treated at [facility], asymptomatic) - monitor will reassess tomorrow again for paracentesis needs Problems: Subjective 24 Hr Interval Summary Free Text/Dictation Pt had agitation last night - given haldol and Ativan. Exam/Review of Systems Vital Signs Vitals Vital Signs Date Time Temp Pulse Resp B/P Pulse Ox O2 Delivery O2 Flow Rate FiO2 11/25/16 07:37 98.0 66 16 122/75 96 11/24/16 20:00 Room Air Intake and Output 11/24/16 11/24/16 11/25/16 15:00 23:00 07:00 Intake Total 560 ml 800 ml Output Total 4 ml Balance 560 ml 796 ml Exam General: alert awake, NAD Cardiovascular: Normal Rate, Normal Rhythm, Normal S1 and S2, No Murmur, No Extra Sounds Pulmonary: Clear to Auscultation Bilaterally, Normal Respiratory Effort, No Rales, Rhonchi or Wheezes Gastrointestinal: Normoactive Bowel Sounds, Soft, Mild tenderness, no guarding or rebound. Mild distention. No fluid wave. Musculoskeletal: Normal Muscle Bulk and Tone Neurological: CN II - XII Grossly Intact, Non-Focal Results Result Diagram: 11/25/16 0545 11/25/16 0545 Results 24 hrs Laboratory Tests Test 11/24/16 11:59 11/24/16 17:22 11/24/16 21:40 11/25/16 05:45 Bedside Glucose 143 124 90 White Blood Count 2.5 L Red Blood Count 3.48 L Hemoglobin 11.6 L Hematocrit 34.7 L Mean Corpuscular Volume 99.7 Mean Corpuscular Hemoglobin 33.3 H Mean Corpuscular Hemoglobin Concent 33.4 Red Cell Distribution Width 17.1 H Platelet Count 58 L Mean Platelet Volume 11.7 H Neutrophils % 60.8 Lymphocytes % 20.6 Monocytes % 11.3 H Eosinophils % 5.7 Basophils % 1.2 Nucleated Red Blood Cells % 0.0 Neutrophils # 1.5 L Lymphocytes # 0.5 L Monocytes # 0.3 Eosinophils # 0.1 Basophils # 0.0 Nucleated Red Blood Cells # 0.0 Sodium Level 134 L Potassium Level 3.7 Chloride Level 104 Carbon Dioxide Level 26 Anion Gap 8 Blood Urea Nitrogen 14 Creatinine 0.48 Glucose Level 115 Calcium Level 7.2 L Test 11/25/16 07:43 Bedside Glucose 111 Medications Medications Current Medications Thiamine HCl (Vitamin B1) 500 mg DAILY PO Last administered on 11/21/16 08:57 ; Admin Dose 500 MG; Start 11/17/16 at 09:00 Diagnostic Test (Pha) (Accucheck) 1 ea 02 XX ; Start 11/17/16 at 02:00 Miscellaneous Information 1 ea NOTE XX ; Start 11/16/16 at 23:30 Glucose (Glutose) 15 gm Q15M PRN PO DECREASED GLUCOSE; Start 11/16/16 at 23:30 Glucose (Glutose) 22.5 gm Q15M PRN PO DECREASED GLUCOSE; Start 11/16/16 at 23: 30 Dextrose (D50w Syringe) 25 ml Q15M PRN IV DECREASED GLUCOSE; Start 11/16/16 at 23:30 Dextrose (D50w Syringe) 50 ml Q15M PRN IV DECREASED GLUCOSE; Start 11/16/16 at 23:30 Glucagon (Glucagen) 1 mg Q15M PRN IM DECREASED GLUCOSE; Start 11/16/16 at 23:30 Glucose (Glutose) 15 gm Q15M PRN BUCCAL DECREASED GLUCOSE; Start 11/16/16 at 23 :30 Famotidine (Pepcid) 20 mg Q12 PO Last administered on 11/24/16 21:41; Admin Dose 20 MG; Start 11/18/16 at 09:00 Ondansetron HCl 4 mg 4 mg Q4H PRN IV NAUSEA AND/OR VOMITING; Start 11/19/16 at 12:00 Dextrose/Sodium Chloride (D5-1/2ns) 1,000 ml @ 50 mls/hr Q20H PRN IV DECREASED GLUCOSE; Start 11/19/16 at 13:00 Diphenhydramine HCl (Benadryl) 25 mg Q12H PRN PO ITCHING Last administered on t 12:52; Admin Dose 25 MG; Start 11/22/16 at 10:30 Lactulose (Enulose) 10 gm Q8H PRN PO CONFUSION; Start 11/24/16 at 10:00 Haloperidol (Haldol) 1 mg Q4 PRN IM hallucinations, agitation ; Start 11/25/16 at 10:30; Status YESENIA DASILVA Nov 25, 2016 10:12
[2016-11-25] MEDS ORDERED: HALOPERIDOL 5 MG INJ IM PRN (10:30)
[2016-11-25] MEDS ORDERED: ALBUTEROL/IPRATROPIUM (NEB) 3 ML AMP HHN PRN (10:30)
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
[2016-11-25 22:59] VITALS: BP 108/58; RESP 18
[2016-11-26] MEDS: ACCU-CHEK XX SCH (02:00)
[2016-11-26] MEDS: DIPHENHYDRAMINE 25 MG CAP PO PRN (02:16)
[2016-11-26] MEDS ORDERED: IBUPROFEN 400 MG TAB PO PRN (04:30)
[2016-11-26] MEDS ORDERED: HALOPERIDOL 5 MG INJ IM ONE ×2 (05:00→05:24)
[2016-11-26 06:12] LABS: ADD SCAN DIFF NO
[2016-11-26 06:19] LABS: ABNORMAL IP MESSAGE 1; BASOPHILS % 1.2 % (0.0-2.0); EOSINOPHILS # 0.1 10^3/ul (0.0-0.5); EOSINOPHILS % 5.6 % (0.0-7.0); HEMATOCRIT 39.3 % (37.0-47.0); HEMOGLOBIN 12.7 g/dl (12.0-16.0); LYMPHOCYTES # 0.5 10^3/ul (0.8-2.9); LYMPHOCYTES % 19.9 % (15.0-51.0); MEAN CORPUSCULAR HEMOGLOBIN 32.6 pg (29.0-33.0); MEAN CORPUSCULAR HGB CONC 32.3 g/dl (32.0-37.0); MEAN PLATELET VOLUME 10.9 fl (7.4-10.4); MONOCYTE # 0.2 10^3/ul (0.3-0.9); MONOCYTES % 8.8 % (0.0-11.0); NEUTROPHIL # 1.6 10^3/ul (1.6-7.5); NEUTROPHILS % 64.1 % (39.0-77.0); PLATELET COUNT 56 10^3/UL (140-415); RED BLOOD COUNT 3.89 10^6/ul (4.20-5.40); RED CELL DISTRIBUTION WIDTH 17.2 % (11.5-14.5); WHITE BLOOD COUNT 2.5 10^3/ul (4.8-10.8)
[2016-11-26 06:29] LABS: POTASSIUM 3.6 mmol/L (3.5-5.1)
[2016-11-26 06:32] LABS: CREATININE 0.61 mg/dl (0.44-1.00)
[2016-11-26 06:33] LABS: CALCIUM 7.3 mg/dl (8.4-10.2)
[2016-11-26] MEDS: THIAMINE 100 MG TAB PO SCH (08:02)
[2016-11-26] MEDS: FAMOTIDINE 20 MG TAB PO SCH (08:02)
[2016-11-26] MEDS: INSULIN ASPART [NOVOLOG] 3 ML PEN SC SCH (08:14)
--- NOTE | 2016-11-26 08:52 | DS ---
Date/Time of Note Date/Time of Note DATE: 11/26/16 TIME: 08:52 Discharge Summary Admission/Discharge Info Admit Date/Time Nov 16, 2016 at 20:10 Discharge Date/Time Nov 26, 2016 at 08:50 Final Diagnosis pt left AMA Hx of Present Illness This is a 46 year old female with known liver cirrhosis and drug abuse, methamphetamine in particular, who is a Direct Admit as a transfer patient from [facility] for capitation purposes. She was originally admitted there on 11/11/16 and presented with multiple complaints, most specifically, abdominal pain and all-over body pain. Ultimately, she was found to have an E. coli UTI that was treated and Metabolic Encephalopathy that seems to have become worse a day or so before this transfer was arranged. She had multiple other diagnoses. During that stay, she was Consulted on by Neurology. Review of the records from [place] show that she is well-known to EMS and that she looks worse and that her health seems to be declining. She recently spent 9 months in a SNF but was "discharged to ". They called [facility] at [phone] and the front dest lady said she left AMA and thisnks she was there on Hospice but that she did not have access to the medical record and we have to call back in the morning to speak with the Medical Records Dept. or the nurses that took care of her. Review of the records shows that patient was also evaulated by Neurologist, Dr. Arizmendi, but patient was unable to complete the EEG or the CTA of head/neck becasue she culd not lie still enough. Of not was that her Ammonia Level was "elevated" but patient refused her Lactulose by spitting it out, using profanity at times. The Neurologist signed off the case indicating that patient' s symptoms appear to be partially psychogenic, and, she seemed to be back to her baseline. Hospital Course Assessment/Plan: 46 F with: 1) Metabolic Encephalopathy - resolving - sec to HE (from cirrhosis) and UTI most likely - monitor for now - CM to help with placement (SW following patient) - continue PT treatment - needs SNF 2) Cirrhosis/Chronic Liver Failure with history of multiple paracenteses - stable - monitor, continue lactulose 3) Amphetamine Abuse - cessation, and will d/c pain meds for now given non- compliance 4) Psychiatric Problem - have d/c'ed all IV morphine, IV ativan - use PO pain meds and haldol IM prn - will get tele psych to further assess psychiatric issues 5) UTI (treated at [facility], asymptomatic) - monitor will reassess tomorrow again for paracentesis needs Home Meds Active Scripts Lorazepam* (Ativan*) 0.5 Mg Tablet, 0.5 MG PO BID Y for ANXIETY, #10 TAB Prov:LUIS AYESENIA S. 11/24/16 Lactulose* (Lactulose*) 10 Gm/15 Ml Solution, 10 GM PO BID for 30 Days, ML 2 Refills Prov:RACRISTIANA,YESENIA S. 11/24/16 Albuterol Sulfate* (Proair HFA*) 8.5 Gm Hfa.aer.ad, 2 PUFF INH Q4 for 30 Days, # 1 INHALER Prov:DERECK GUNNEEP S. 11/24/16 [Thiamine] 100 MG TAB No Conflict Check, 100 MG PO DAILY, #30 2 Refills Prov:LUIS AYESENIA S. 11/24/16 Gabapentin* (Neurontin*) 300 Mg Capsule, 300 MG PO TID, #90 CAP 1 Refill Prov:DERECK GUNNEEP S. 11/24/16 Pending Labs Laboratory Tests Test 11/25/16 12:03 11/25/16 17:24 11/25/16 23:32 11/26/16 05:58 Bedside Glucose 70mg/dL (70-220) 90mg/dL (70-220) 95mg/dL (70-220) White Blood Count 2.510^3/ul (4.8-10.8) Red Blood Count 3.8910^6/ul (4.20-5.40) Hemoglobin 12.7g/dl (12.0-16.0) Hematocrit 39.3% (37.0-47.0) Mean Corpuscular Volume 101.0fl (82.0-101.0) Mean Corpuscular Hemoglobin 32.6pg (29.0-33.0) Mean Corpuscular Hemoglobin Concent 32.3g/dl (32.0-37.0) Red Cell Distribution Width 17.2% (11.5-14.5) Platelet Count 5610^3/UL (140-415) Mean Platelet Volume 10.9fl (7.4-10.4) Neutrophils % 64.1% (39.0-77.0) Lymphocytes % 19.9% (15.0-51.0) Monocytes % 8.8% (0.0-11.0) Eosinophils % 5.6% (0.0-7.0) Basophils % 1.2% (0.0-2.0) Nucleated Red Blood Cells % 0.0/100WBC (0.0-0.0) Neutrophils # 1.610^3/ul (1.6-7.5) Lymphocytes # 0.510^3/ul (0.8-2.9) Monocytes # 0.210^3/ul (0.3-0.9) Eosinophils # 0.110^3/ul (0.0-0.5) Basophils # 0.010^3/ul (0.0-0.1) Nucleated Red Blood Cells # 0.010^3/ul (0.0-0.0) Sodium Level 136mmol/L (135-144) Potassium Level 3.6mmol/L (3.5-5.1) Chloride Level 105mmol/L (97-110) Carbon Dioxide Level 26mmol/L (21-31) Anion Gap 9 (8-16) Blood Urea Nitrogen 18mg/dl (7-20) Creatinine 0.61mg/dl (0.44-1.00) Glucose Level 123mg/dl (70-220) Calcium Level 7.3mg/dl (8.4-10.2) Test 11/26/16 08:00 Bedside Glucose 145mg/dL (70-220) YESENIA GUNN Nov 26, 2016 08:52
== END 2016-11-26 08:50 | disposition left against medical advice (07) | DRG 71 ==
LOC: MS2 11-16 20:10
PROVIDERS: ADMIT Family Medicine; ATTEND Family Medicine
DX: G93.41 Metabolic encephalopathy (principal); J94.8 Other specified pleural conditions; E87.2 Acidosis; I50.9 Heart failure, unspecified; F15.20 Other stimulant dependence, uncomplicated; M62.82 Rhabdomyolysis; N39.0 Urinary tract infection, site not specified; R44.0 Auditory hallucinations; K72.90 Hepatic failure, unspecified without coma; K70.30 Alcoholic cirrhosis of liver without ascites; B96.29 Other Escherichia coli [E. coli] as the cause of diseases classified elsewhere; F60.3 Borderline personality disorder; Z59.0 Homelessness; Z59.7 Insufficient social insurance and welfare support; F29 Unspecified psychosis not due to a substance or known physiological condition; Z91.19 Patient's noncompliance with other medical treatment and regimen; Z66 Do not resuscitate
CPT/HCPCS: 80048; 80053; 81001; 81003; 82140; 82962; 83605; 85025; 85610; 85730; 87081; 90686; 97162; A4310; J1200; J1630; J1815; J2060; J2270

== ENCOUNTER 2016-11-28 18:19 | Inpatient (IN) | payer OTHER ==
[~2016-11-28] VITALS: Ht 165.1 cm; Wt 70.0 kg
[~2016-11-28 18:19] MED LIST changes: +ALBU8.5H3 INH; +LACT10SO5 PO; +LORA-441 PO; +Thiamine PO
[2016-11-28 21:49] VITALS: BP 106/66; PULSE 92; PULSE 94; RESP 18
[2016-11-29] VITALS (10 sets, daily range): BP systolic 108–120; BP diastolic 55–68; PULSE 84–97; RESP 18–19; Ht 165.1 cm; Wt 70.0 kg
[2016-11-29] MEDS ORDERED: ONDANSETRON 4 MG INJ IV PRN
[2016-11-29] MEDS ORDERED: ALBUTEROL 0.083% (NEB) 2.5 MG/3 ML AMP HHN PRN
[2016-11-29] MEDS ORDERED: GLUCOSE GEL 15 GRAM TUBE PO PRN ×2 (00:30)
[2016-11-29] MEDS ORDERED: DEXTROSE 50% 50 ML SYRINGE IV PRN ×2 (00:30)
[2016-11-29] MEDS ORDERED: GLUCAGON 1 MG INJ IM PRN (00:30)
[2016-11-29] MEDS ORDERED: GLUCOSE GEL 15 GRAM TUBE BUCCAL PRN (00:30)
[2016-11-29] MEDS: LORAZEPAM 0.5 MG TAB PO SCH ×3 (02:20→21:00)
[2016-11-29] MEDS: LACTULOSE 30ML CUP PO SCH ×4 (02:20→18:00)
[2016-11-29] MEDS: ACCUCHECK AT 2AM (Patients on SS coverage) XX SCH (02:20)
[2016-11-29 02:29] LABS: ADD SCAN DIFF NO
[2016-11-29 02:35] LABS: ABNORMAL IP MESSAGE 1; BASOPHILS % 0.6 % (0.0-2.0); EOSINOPHILS # 0.1 10^3/ul (0.0-0.5); EOSINOPHILS % 3.1 % (0.0-7.0); HEMATOCRIT 28.8 % (37.0-47.0); HEMOGLOBIN 10.1 g/dl (12.0-16.0); LYMPHOCYTES # 0.6 10^3/ul (0.8-2.9); LYMPHOCYTES % 19.3 % (15.0-51.0); MEAN CORPUSCULAR HGB CONC 35.1 g/dl (32.0-37.0); MONOCYTE # 0.5 10^3/ul (0.3-0.9); MONOCYTES % 14.6 % (0.0-11.0); NEUTROPHILS % 62.1 % (39.0-77.0); RED BLOOD COUNT 2.97 10^6/ul (4.20-5.40); RED CELL DISTRIBUTION WIDTH 17.4 % (11.5-14.5); WHITE BLOOD COUNT 3.2 10^3/ul (4.8-10.8)
[2016-11-29 02:39] LABS: PLATELET COUNT 68 10^3/UL (140-415)
[2016-11-29 02:53] LABS: ALBUMIN 2.3 g/dl (3.3-4.9); POTASSIUM 3.3 mmol/L (3.5-5.1)
[2016-11-29 02:55] LABS: BILIRUBIN,INDIRECT 1.9 mg/dl (0-1.1); BILIRUBIN,TOTAL 1.9 mg/dl (0.2-1.3); CREATININE 0.67 mg/dl (0.44-1.00)
[2016-11-29 02:56] LABS: ALBUMIN/GLOBULIN RATIO 0.62; CALCIUM 7.9 mg/dl (8.4-10.2)
[2016-11-29 02:57] LABS: MAGNESIUM 1.8 mg/dl (1.7-2.5)
[2016-11-29] MEDS ORDERED: INSULIN ASPART [NOVOLOG] 3 ML PEN SC SCH (07:30)
[2016-11-29] MEDS: Insulin NOVOLOG SS MODERATE Algorithm (SS with meals and bedtime) SC SCH ×4 (08:00→21:00)
[2016-11-29] MEDS: GABAPENTIN 300 MG CAP PO SCH ×3 (08:32→21:00)
--- NOTE | 2016-11-29 10:17 | HP ---
DATE OF ADMISSION: 11/28/2016 TIME SEEN: 2300. CHIEF COMPLAINT: Loss of consciousness and difficulty walking. HISTORY OF PRESENT ILLNESS: The patient is a 46-year-old female with a history of liver cirrhosis, d iabetes, encephalopathy, drug abuse, mainly amphetamines, psychiatric disorder, pleural effusion, st atus post thoracentesis, CHF, coronary artery disease and probable brain tumor removal who has trans ferred from outside hospital after she presented there complaining of loss of consciousness and diff iculty walking. The patient had been admitted here recently for 14 days and just left AMA 2 days ag o. At that time, she was admitted for encephalopathy. She was evaluated by tele psych and was place d on a 5150 hold but after it was determined that she was no longer danger to self or others the pat ient decided to leave against medical advice. Review of records from [facility] prior to h er last hospitalization showed that the patient was evaluated by a neurologist, but she was unable t o complete an EEG or CT angiogram of the head and neck, because she was restless. Her ammonia level was also elevated at the outside hospital. As far as her current presentation is concerned, she said that she was outside a library when all of a sudden she lost consciousness and fell down and when she regained consciousness she said she felt as if "somebody put ____ ". ____ difficulty walking she went to an outside hospital in [place] and subsequently transferred here because of insurance reasons. Currently, the patient appears calm and stated that at this time she is not going to leave against medical advice. REVIEW OF SYSTEMS: Negative except as mentioned in HPI. PAST MEDICAL HISTORY: As per HPI. PAST SURGICAL HISTORY: and probable brain tumor removal. SOCIAL HISTORY: Positive for drug abuse, mainly methamphetamine. ALLERGIES: 1. ACETAMINOPHEN, 2. BUTORPHANOL. 3. CODEINE. 4. TORADOL. 5. PHENOBARBITAL. 6. PHENYTOIN. HOME MEDICATIONS: 1. Albuterol. 2. Gabapentin. 3. Ativan. 4. Lactulose. 5. Thiamine. PHYSICAL EXAMINATION: VITAL SIGNS: Stable. GENERAL: The patient is not in acute distress. She is actually answering questions appropriately a nd able to speak in full sentences without any difficulty. The patient is ____ disheveled and foul smelling. HEENT: No obvious head deformity. Pupils are reactive. Extraocular movements intact. CARDIOVASCULAR: Tachycardic with regular rhythm. LUNGS: Clear. ABDOMEN: Soft, nontender, nondistended, positive bowel sounds. EXTREMITIES: No edema. There are some scratch parker and a little bit of bruising. LABORATORY: Currently pending here. IMPRESSION: 1. Self-reported loss of consciousness. 2. History of recurrent encephalopathy. 3. Liver cirrhosis. 4. History of pulmonary artery disease. 5. History of congestive heart failure. 6. History of illicit drug abuse. PLAN: Will continue on telemetry monitoring. We will obtain a 2D echo to workup her syncope. Will also send out troponins. Will do urine toxicology screen. Currently, the patient appears to have a normal mentation. Will check ammonia level. We will continue her home medications including her l actulose, with adjustment as needed. Appropriate consultation will be placed based on clinical cour se. Further workup and management per clinical course. Dictated By: DAVID RODRIGUEZ/SASHA Conf#: [id number] DID#: [id number]
--- NOTE | 2016-11-29 13:16 | PN ---
Date/Time of Note Date/Time of Note DATE: 11/29/16 TIME: 13:03 Assessment/Plan VTE Prophylaxis VTE Prophylaxis Intervention: SCD's Lines/Catheters IV Catheter Type (from Nrs): Saline Lock Assessment/Plan Assessment/Plan 1. Syncope, follow up with echo, carotid us and tele 2. Alcoholic liver disease with cirrhosis. states stopped ETOH in 2012 3. Pancytopenia, liver cirrhosis related 4. Reported CHF, echo 5. diabetes, ISS 6. Drug abuse, mainly amphetamines, 7. psychiatric disorder, Subjective 24 Hr Interval Summary Free Text/Dictation no shortness of breath, no fever Exam/Review of Systems Vital Signs Vitals Vital Signs Date Time Temp Pulse Resp B/P Pulse Ox O2 Delivery O2 Flow Rate FiO2 11/29/16 12:08 84 11/29/16 12:01 98.2 18 120/66 97 11/29/16 04:00 Room Air Intake and Output 11/28/16 11/28/16 11/29/16 15:00 23:00 07:00 Intake Total 200 ml Balance 200 ml Exam Constitutional: alert, oriented, well developed Psych: nl mood/affect, no complaints Head: atraumatic, normocephalic Eyes: EOMI, PERRL, nl conjunctiva, nl lids ENMT: nl external ears & nose, nl lips & teeth, nl nasal mucosa & septum Neck: non-tender, supple Respiratory: clear to auscultation, normal air movement, No congested cough, No crackles/rales, No diminished breath sounds, No intercostal retraction, No labored breathing, No other, No respirations, No tactile fremitus, No wheezing Cardiovascular: nl pulses, regular rate and rhythm, No S3, No S4, No bruits, No diastolic murmur, No edema, No gallop, No irregular rhythm, No jugular venous distention (JVD), No murmurs/extra sounds, No other, No rub, No systolic murmur Gastrointestinal: nl liver, spleen, non-tender, soft, No ascites, No bowel sounds, No distended, No firm, No hepatomegaly, No mass , No other, No rebound or guarding, No splenomegaly, No surgical scars, No tender Musculoskeletal: nl extremities to inspection Extremities: normal pulses, No calf tenderness, No clubbing, No cyanosis, No edema, No other, No palpable cord, No pitting pedal edema, No tenderness Neurological: EAR SPECIALIST II-XII intact, nl mental status, nl speech, nl strength Skin: nl turgor Lymph: nl lymph nodes Results Result Diagram: 11/29/16 0151 11/29/16 0151 Results 24 hrs Laboratory Tests Test 11/29/16 01:51 11/29/16 02:19 11/29/16 08:02 11/29/16 09:40 White Blood Count 3.2 #L Red Blood Count 2.97 #L Hemoglobin 10.1 #L Hematocrit 28.8 #L Mean Corpuscular Volume 97.0 Mean Corpuscular Hemoglobin 34.0 H Mean Corpuscular Hemoglobin Concent 35.1 Red Cell Distribution Width 17.4 H Platelet Count 68 #L Mean Platelet Volume 11.0 H Neutrophils % 62.1 Lymphocytes % 19.3 Monocytes % 14.6 H Eosinophils % 3.1 Basophils % 0.6 Nucleated Red Blood Cells % 0.0 Neutrophils # 2.0 Lymphocytes # 0.6 L Monocytes # 0.5 Eosinophils # 0.1 Basophils # 0.0 Nucleated Red Blood Cells # 0.0 Sodium Level 138 Potassium Level 3.3 L Chloride Level 102 Carbon Dioxide Level 25 Anion Gap 14 Blood Urea Nitrogen 18 Creatinine 0.67 Glucose Level 94 Calcium Level 7.9 L Phosphorus Level 4.0 Magnesium Level 1.8 Total Bilirubin 1.9 H Direct Bilirubin 0.00 Indirect Bilirubin 1.9 H Aspartate Amino Transf (AST/SGOT) 85 H Alanine Aminotransferase (ALT/SGPT) 66 Alkaline Phosphatase 79 Ammonia 23 Total Protein 6.0 L Albumin 2.3 L Globulin 3.70 H Albumin/Globulin Ratio 0.62 Bedside Glucose 87 79 Troponin I 0.016 Test 11/29/16 11:48 Bedside Glucose 79 Medications Medications Current Medications Gabapentin (Neurontin) 300 mg TID PO Last administered on 11/29/16 12:10; Admin Dose 300 MG; Start 11/29/16 at 09:00 Lactulose (Enulose) 10 gm Q6 PO Last administered on 11/29/16 12:10; Admin Dose 10 GM; Start 11/29/16 at 00:00 Ondansetron HCl (Zofran Inj) 4 mg Q6H PRN IV NAUSEA AND/OR VOMITING; Start 11/29 at 00:00 Diagnostic Test (Pha) (Accu-Chek) 1 ea 02 XX Last administered on 11/29/16 02: 20; Admin Dose 1 EA; Start 11/29/16 at 02:00 Miscellaneous Information 1 ea NOTE XX ; Start 11/29/16 at 00:30 Glucose (Glutose) 15 gm Q15M PRN PO DECREASED GLUCOSE; Start 11/29/16 at 00:30 Glucose (Glutose) 22.5 gm Q15M PRN PO DECREASED GLUCOSE; Start 11/29/16 at 00:30 Dextrose (D50w Syringe) 25 ml Q15M PRN IV DECREASED GLUCOSE; Start 11/29/16 at 00:30 Dextrose (D50w Syringe) 50 ml Q15M PRN IV DECREASED GLUCOSE; Start 11/29/16 at 00:30 Glucagon (Glucagen) 1 mg Q15M PRN IM DECREASED GLUCOSE; Start 11/29/16 at 00:30 Glucose (Glutose) 15 gm Q15M PRN BUCCAL DECREASED GLUCOSE; Start 11/29/16 at 00: 30 Lorazepam (Ativan) 0.5 mg BID PO Last administered on 11/29/16 08:32; Admin Dose 0.5 MG; Start 11/29/16 at 00:00 ENEDINA KAPLAN MD Nov 29, 2016 13:15
--- NOTE | 2016-11-29 13:46 | RADRPT ---
PROCEDURE: US carotid arteries. CLINICAL INDICATION: Dizziness. TECHNIQUE: Multiple sonographic images of the carotid arteries and vertebral arteries were obtaine d utilizing potts scale, duplex, and color-flow imaging. The images were reviewed on a PACS workstati on. COMPARISON: No prior studies are available for comparison. FINDINGS: Evaluation of the right carotid bifurcation region reveals mild atherosclerotic disease. Evaluation of the left carotid bifurcation region reveals mild atherosclerotic disease. There is antegrade flow within the vertebral arteries bilaterally. RIGHT CAROTID MEASUREMENTS: Common Carotid [id number] (cm/sec) Internal Carotid Artery 61 (cm/sec) External Carotid Artery 55 (cm/sec) Vertebral Artery 48 (cm/sec) Internal Carotid/Common Carotid0.7 LEFT CAROTID MEASUREMENTS: Common Carotid [id number] (cm/sec) Internal Carotid Artery 94 (cm/sec) External Carotid Artery 85 (cm/sec) Vertebral Artery 48 (cm/sec) Internal Carotid/Common Carotid1.1 Validated velocity measurements with angiographic measurements. Velocity criteria are extrapolated f rom diameter data as defined by the Society of Radiologists in Ultrasound Consensus Conference. Radi ology 2003; 229;340-346. This study does indirectly reference the measurement of the distal ICA pradeep meter as the denominator for stenosis measurement. IMPRESSION: 1. Less than 50% stenosis bilaterally in the internal carotid arteries. 2. Normal antegrade flow in the vertebral arteries bilaterally. RPTAT: QQ SRU Consensus Conference Criteria for the Diagnosis of Carotid Artery Stenosis* Degree of Stenosis, % ICA PSV, cm/sec Plaque Estimate, % ICA/CCA PSV Ratio Normal <125 None <2.0 <50 <125 <50 <2.0 50 69 125-230 >50 2.0-4.0 >70 but less than near occlusion >230 >50 <4.0 Near occlusion High, low, or undetectable Visible Variable Total occlusion Undetectable Visible, no detectable lumen Not applicable *Cartoid artery stenosis: potts-scale and Doppler US diagnosis. Society of Radiologists in Ultrasound Consensus Conference. Radiology 2003; 229: 340-346 .Alexander Michelle MD, Date Time Electronically viewed and signed by .Alexander Michelle MD, on 11/29/2016 13:45 .R/
[2016-11-30] MEDS: ACCUCHECK AT 2AM (Patients on SS coverage) XX SCH (01:50)
[2016-11-30] MEDS: LORAZEPAM 0.5 MG TAB PO SCH ×3 (02:39→09:53)
[2016-11-30] MEDS: LACTULOSE 30ML CUP PO SCH ×4 (06:00→17:58)
[2016-11-30] MEDS: Insulin NOVOLOG SS MODERATE Algorithm (SS with meals and bedtime) SC SCH ×4 (07:50→21:00)
[2016-11-30] MEDS: GABAPENTIN 300 MG CAP PO SCH ×3 (09:00→21:00)
--- NOTE | 2016-11-30 11:29 | RADRPT ---
Echocardiogram Report Patient Name: DELANEY SANCHEZ Gender: Female Date: 1970 Study Date: 29-Nov-2016 [employer] Lab Technician: Elias Bruce [facility] Location: [id number] Ref. Physician: DAVID ROE Quality: Adequate Procedures: Transthoracic echocardiogram with complete 2D, M-Mode, and doppler examination. Indications: Syncope. 2D/M Mode Doppler Measurement Value Normal Ranges Measurement Value Normal Ranges LVIDd 2D 5.9 3.5 - 5.6 cm AV Peak Kwan 1.5 m/sec LVIDs 2D 2.7 2.1 - 4.1 cm AV Peak PG 9.3 mmHg LVPWd 2D 0.9 0.6 - 1.1 cm LVOT Peak Kwan 1.4 m/sec IVSd 2D 0.9 0.6 - 1.1 cm LVOT Peak PG 7.4 mmHg AoR Diam 2D 2.9 2.0 - 3.7 cm MV E Peak Kwan 0.9 m/sec EDV 2D 175.7 cm3 MV A Peak Kwan 0.9 m/sec ESV 2D 20.3 cm3 MV E/A 0.9 LA Dimen 2D 3.4 2.3 - 4.0 cm MV Decel Time 196 msec MV Decel [place] 4 MV E/A 0.9 TR Peak Kwan 2.6 m/sec TR Peak PG 26.7 mmHg RVSP 30.0 mmHg Findings Left Ventricle: Normal left ventricular systolic function. Normal left ventricular cavity size. Normal left ventricular wall thickness. Ejection fraction is visually estimated at 60 %. Tissue Doppler/Mitral Doppler indices are consistent with impaired relaxation (Stage I diastolic dysfunction). Right Ventricle: Normal right ventricular size. Normal right ventricular systolic function. Left Atrium: The left atrium is normal in size. Right Atrium: The right atrium is normal in size. Mitral Valve: Mitral valve leaflets appear mildly thickened. Mild mitral annular calcification. Trace mitral regurgitation. Aortic Valve: Normal appearance of the aortic valve. No significant aortic stenosis or insufficiency. Tricuspid Valve: Estimated peak PA systolic pressure 30 mmHg. There is trace tricuspid regurgitation. Pulmonic Valve: Pulmonic valve not well visualized. Pericardium: Normal pericardium with no significant pericardial effusion. Aorta: Normal aortic root. IVC: Normal size and normal respiratory collapse consistent with normal right atrial pressure. Conclusions 1.Normal left ventricular systolic function. Normal left ventricular cavity size. Normal left ventricular wall thickness. Ejection fraction is visually estimated at 60 %. Tissue Doppler/Mitral Doppler indices are consistent with impaired relaxation (Stage I diastolic dysfunction). 2.Normal appearance of the aortic valve. No significant aortic stenosis or insufficiency. 3.Mitral valve leaflets appear mildly thickened. Mild mitral annular calcification. Trace mitral regurgitation. 4.Estimated peak PA systolic pressure 30 mmHg. There is trace tricuspid regurgitation. Electronically Signed By: Ed Koo 30-Nov-2016 11:28:16 -0700 Patient Name: DELANEY SANCHEZ Study Date: 29-Nov-[id number]
--- NOTE | 2016-11-30 11:44 | PSY ---
Date/Time of Note Date/Time of Note DATE: 11/30/16 TIME: 11:38 Psychiatric Subjective Eval Consent Pt consented to telemedicine: Yes Subjective Evaluation Patient location: inpatient Chief Complaint: "I want to go home." Reason for consult: Eval for clearance for discharge History of present illness Patient is homeless and has history of meth use. She was admitted last week and left AMA. She returned to the hospital. Once her pain medications were cut off, patient stated she wanted to go home. When she was about to be discharged AMA, patient states she was suicidal. Per report, certified social workers in health care talked with patient and she denies current and recent past suicidal ideation. Initially, patient did not want to talk to me. She wants to be discharged. Patient denies suicidal ideation. Reports she wants to go back to her "spot" and she is going to use drugs again. She is angry because she has not been given the kind of food she wants. She denies hallucinations and delusions. Patient states she feels safe being discharged from the hospital. Past psychiatric history Past admissions. Last one over one year ago. Patient did not want to talk about past history as she appeared to be afraid it might lead to an admission. Hospitalization: yes Family History Unknown Medical history Problems Medical Problems: (1) Congestive heart failure Status: Acute Allergies: Coded Allergies: acetaminophen (Verified Allergy, Unknown, 03/25/14) butorphanol (Verified Allergy, Unknown, 03/25/14) codeine (Verified Allergy, Unknown, 03/25/14) ketorolac (Verified Allergy, Unknown, 03/25/14) phenobarbital (Verified Allergy, Unknown, 03/25/14) phenytoin (Verified Allergy, Unknown, 03/25/14) Substance Abuse Substance abuse history: Yes (meth) Social History Marital status: single Level of education: Not discussed DPA/Conservatorship: No Occupation/Skilled Nursing: unemployed, homeless Psychiatric Objective Eval Mental Status Examination: Appearance: Disheveled Eye Contact: Fair Psychomotor Activity: Normal Behavior: Hostile Speech: Clear AFFECT: Intense Mood: Appropriate/Full, Irritable Though Process: Linear Thought Content: Normal Suicidal: No Homicidal: No On 72 hour hold: No Orientation: x3 Cognition: Alert Insight: Impared Judgement: Impared Attention Span: Intact Laboratory Results Laboratory Tests Test 11/29/16 01:51 11/29/16 02:19 4/3/17 08:02 11/29/16 09:40 White Blood Count 3.210^3/ul Red Blood Count 2.9710^6/ul Hemoglobin 10.1g/dl Hematocrit 28.8% Mean Corpuscular Volume 97.0fl Mean Corpuscular Hemoglobin 34.0pg Mean Corpuscular Hemoglobin Concent 35.1g/dl Red Cell Distribution Width 17.4% Platelet Count 6810^3/UL Mean Platelet Volume 11.0fl Neutrophils % 62.1% Lymphocytes % 19.3% Monocytes % 14.6% Eosinophils % 3.1% Basophils % 0.6% Nucleated Red Blood Cells % 0.0/100WBC Neutrophils # 2.010^3/ul Lymphocytes # 0.610^3/ul Monocytes # 0.510^3/ul Eosinophils # 0.110^3/ul Basophils # 0.010^3/ul Nucleated Red Blood Cells # 0.010^3/ul Sodium Level 138mmol/L Potassium Level 3.3mmol/L Chloride Level 102mmol/L Carbon Dioxide Level 25mmol/L Anion Gap 14 Blood Urea Nitrogen 18mg/dl Creatinine 0.67mg/dl Glucose Level 94mg/dl Calcium Level 7.9mg/dl Phosphorus Level 4.0mg/dl Magnesium Level 1.8mg/dl Total Bilirubin 1.9mg/dl Direct Bilirubin 0.00mg/dl Indirect Bilirubin 1.9mg/dl Aspartate Amino Transf (AST/SGOT) 85IU/L Alanine Aminotransferase (ALT/SGPT) 66IU/L Alkaline Phosphatase 79IU/L Ammonia 23umol/l Total Protein 6.0g/dl Albumin 2.3g/dl Globulin 3.70g/dl Albumin/Globulin Ratio 0.62 Bedside Glucose 87mg/dL 79mg/dL Troponin I 0.016ng/ml Test 11/29/16 11:48 11/29/16 14:45 11/29/16 17:01 11/29/16 21:51 Bedside Glucose 79mg/dL 129mg/dL 117mg/dL Troponin I < 0.012ng/ml Assessment and Plan Assessment/Diagnosis [place] I: Unspecified Depressive Disorder, Stimulant Use Disorder Recommendation/Plan Medication Management No medication recommendations Psychotherapy N./A Pt. Caregiver/Family Education N/A Follow-up/Disposition Discharge to self. Patient has a very poor prognosis. However, she does not appear to be acutely a danger to self or others. She has a place she can return to and is not gravely disabled due to a psychiatric illness. She does not meet criteria for involuntary hospitalization. 5150 Recommendation: WALTER Conteh Nov 30, 2016 11:44
--- NOTE | 2016-11-30 14:58 | PDOCDIS ---
Discharge Instructions CONDITION Patient Condition: Good HOME CARE INSTRUCTIONS: Special Diet: Regular ACTIVITY: Activity Restrictions: Slowly Increase Activity Rest between Activity Avoid heavy lifting Avoid Heavy Housework FOLLOW UP/APPOINTMENTS Appointments follow up with her own PMD through HMO insurance in 1 week SHAHRIAR BAEZ MD Nov 30, 2016 14:58
--- NOTE | 2016-11-30 15:02 | PN ---
Date/Time of Note Date/Time of Note DATE: 11/30/16 TIME: 14:59 Assessment/Plan VTE Prophylaxis VTE Prophylaxis Intervention: SCD's Lines/Catheters IV Catheter Type (from Nrs): Saline Lock Urinary Cath still in place: No Assessment/Plan Assessment/Plan 1. Syncope, ECHO showed EF 60%, stage I diastolic dysfunction, Carotid doppler negative for hemodynamically significant stenosis 2. Alcoholic liver disease with cirrhosis. states stopped ETOH in 2012 3. Pancytopenia, liver cirrhosis related 4. Reported CHF, echo 5. diabetes, ISS 6. Drug abuse, mainly amphetamines, 7. psychiatric disorder, s/p tele psych evaluation, cleared, pt has been abusing pain meds and malignering, d/c ativan PO, no pain meds plan for d/c today after evaluation by SW Subjective 24 Hr Interval Summary Free Text/Dictation pt had a Telepsych evaluation, [place], pt has been abusing pain meds and malignering Exam/Review of Systems Vital Signs Vitals Vital Signs Date Time Temp Pulse Resp B/P Pulse Ox O2 Delivery O2 Flow Rate FiO2 11/29/16 23:47 98.4 79 19 108/55 95 11/29/16 04:00 Room Air Intake and Output 11/29/16 11/29/16 11/30/16 15:00 23:00 07:00 Intake Total 250 ml 225 ml Balance 250 ml 225 ml Exam Constitutional: alert, oriented, well developed Respiratory: clear to auscultation, normal air movement, No congested cough, No crackles/rales, No diminished breath sounds, No intercostal retraction, No labored breathing, No other, No respirations, No tactile fremitus, No wheezing Cardiovascular: nl pulses, regular rate and rhythm, No S3, No S4, No bruits, No diastolic murmur, No edema, No gallop, No irregular rhythm, No jugular venous distention (JVD), No murmurs/extra sounds, No other, No rub, No systolic murmur Gastrointestinal: nl liver, spleen, non-tender, soft, No ascites, No bowel sounds, No distended, No firm, No hepatomegaly, No mass , No other, No rebound or guarding, No splenomegaly, No surgical scars, No tender Musculoskeletal: nl extremities to inspection Extremities: normal pulses, No calf tenderness, No clubbing, No cyanosis, No edema, No other, No palpable cord, No pitting pedal edema, No tenderness Results Result Diagram: 11/29/16 0151 11/29/16 0151 Results 24 hrs Laboratory Tests Test 11/29/16 17:01 11/29/16 21:51 Bedside Glucose 129 117 Medications Medications Current Medications Gabapentin (Neurontin) 300 mg TID PO Last administered on 11/29/16 12:10; Admin Dose 300 MG; Start 11/29/16 at 09:00 Lactulose (Enulose) 10 gm Q6 PO Last administered on 11/29/16 12:10; Admin Dose 10 GM; Start 11/29/16 at 00:00 Ondansetron HCl (Zofran Inj) 4 mg Q6H PRN IV NAUSEA AND/OR VOMITING; Start 11/29 at 00:00 Diagnostic Test (Pha) (Accu-Chek) 1 ea 02 XX Last administered on 11/29/16 02: 20; Admin Dose 1 EA; Start 11/29/16 at 02:00 Miscellaneous Information 1 ea NOTE XX ; Start 11/29/16 at 00:30 Glucose (Glutose) 15 gm Q15M PRN PO DECREASED GLUCOSE; Start 11/29/16 at 00:30 Glucose (Glutose) 22.5 gm Q15M PRN PO DECREASED GLUCOSE; Start 11/29/16 at 00:30 Dextrose (D50w Syringe) 25 ml Q15M PRN IV DECREASED GLUCOSE; Start 11/29/16 at 00:30 Dextrose (D50w Syringe) 50 ml Q15M PRN IV DECREASED GLUCOSE; Start 11/29/16 at 00:30 Glucagon (Glucagen) 1 mg Q15M PRN IM DECREASED GLUCOSE; Start 11/29/16 at 00:30 Glucose (Glutose) 15 gm Q15M PRN BUCCAL DECREASED GLUCOSE; Start 11/29/16 at 00: 30 SHAHRIAR BAEZ MD Nov 30, 2016 15:02
[2016-11-30 19:59] VITALS: BP 105/58; RESP 20
--- NOTE | 2016-12-01 21:51 | DS ---
DATE OF ADMISSION: 11/28/2016 DATE OF DISCHARGE: 11/30/2016 FINAL DISCHARGE DIAGNOSES: 1. Syncope workup negative. 2. Alcoholic liver disease with liver cirrhosis. 3. Pancytopenia secondary to liver cirrhosis. 4. Diabetes mellitus. 5. Drug abuse. 6. Psychiatric disorder. 7. Drug-seeking behavior with intravenous Dilaudid. 8. Malingering. CONSULTATIONS DONE DURING THIS HOSPITALIZATION: 1. Telepsychiatric consultation was done. 2. fat pressroom worker consult was done. HOSPITAL COURSE: This is a 46-year-old female who has a past medical history of psychiatric disorde r, diabetes mellitus, drug abuse, mainly amphetamines, reported history of congestive heart failure who presented with a complaint of syncopal episodes. Please note that the patient has been recently admitted, stayed in the hospital for 2 to 3 weeks and was discharged on Tuesday. She presented back to the hospital on Tuesday with a syncopal complaint. Part of her symptoms are nonrealistic some of her symptoms she was making it up. She was malingering. She had a workup done for serial troponins, EKG negative. She got admitted to the telemetry floor where she had an echocardiogram wh ich shows ejection fraction 60% with stage I diastolic dysfunction. Her carotid Doppler was negativ e for any hemodynamically significant stenosis. The patient has a history of liver cirrhosis which caused pancytopenia. The patient was seen by social science instructor and had a psych evaluation. Her pain medication was stopped. Initially she wanted to sign out AMA, but then she decided not to sign out AMA and she was official ly discharged. The patient tried every effort to stay in the hospital with nonrealistic complaints. She was also seen by a social science instructor, nursing photographic supervisor and ultimately she was seen by [place] and the patient was escorted out of the hospital on 11/30/2016 after getting off icial discharge. She had no medical reason to stay in the hospital at that time. DISPOSITION: To home. DISCHARGE CONDITION: Stable and improved compared to admission. DISCHARGE ACTIVITIES: As tolerated, slowly resume to the normal baseline activity. DISCHARGE DIET: Regular diet. DISCHARGE MEDICATIONS: As per medical reconciliation. DISCHARGE FOLLOWUP AND INSTRUCTIONS: The patient is to follow up with her own primary care doctor t ough her O insurance 1 to 2 weeks after discharge. She has been explained about the discharge p kimber and followup instructions. She understood and verbalized understanding. Dictated By: SHAHRIAR BAEZ MD, KP/SASHA Conf#: [id number] DID#: [id number]
== END 2016-11-30 23:44 | disposition home or self-care (01) | DRG 312 ==
LOC: MS4 21:28 → MS1 11-29 22:30
PROVIDERS: ADMIT Internal Medicine; ATTEND Internal Medicine
DX: R55 Syncope and collapse (principal); D61.818 Other pancytopenia; D69.6 Thrombocytopenia, unspecified; I50.9 Heart failure, unspecified; K70.30 Alcoholic cirrhosis of liver without ascites; E11.9 Type 2 diabetes mellitus without complications; Z76.5 Malingerer [conscious simulation]; F32.9 Major depressive disorder, single episode, unspecified; I25.10 Atherosclerotic heart disease of native coronary artery without angina pectoris; Z79.4 Long term (current) use of insulin
CPT/HCPCS: 80053; 82140; 82962; 83735; 84100; 84484; 85025; 93306; 93880; J1815

== ENCOUNTER 2016-11-30 23:59 | Inpatient (IN) | payer OTHER ==
[~2016-11-30] VITALS: Ht 167.6 cm; Wt 95.0 kg
--- NOTE | 2016-12-01 02:47 | ERA ---
ER Documentation Chief Complaint Date/Time DATE: 12/01/16 TIME: 02:45 Chief Complaint SOB STARTING TODAY HPI Is a 38-year-old female just discharged earlier today from the hospital. Patient says she cannot walk. Denies any new symptoms. ROS All systems reviewed and are negative except as per history of present illness. Medications Home Meds Active Scripts Lorazepam* (Ativan*) 0.5 Mg Tablet, 0.5 MG PO BID Y for ANXIETY, #10 TAB Prov:OSMAN GUNNP S. 11/24/16 Lactulose* (Lactulose*) 10 Gm/15 Ml Solution, 10 GM PO BID for 30 Days, ML 2 Refills Prov:YESENIA GUNN S. 11/24/16 Albuterol Sulfate* (Proair HFA*) 8.5 Gm Hfa.aer.ad, 2 PUFF INH Q4 for 30 Days, # 1 INHALER Prov:YESENIA GUNN S. 11/24/16 [Thiamine] 100 MG TAB No Conflict Check, 100 MG PO DAILY, #30 2 Refills Prov:OSMAN GUNNP S. 11/24/16 Gabapentin* (Neurontin*) 300 Mg Capsule, 300 MG PO TID, #90 CAP 1 Refill Prov:YESENIA GUNN S. 11/24/16 Allergies Allergies: Coded Allergies: acetaminophen (Verified Allergy, Unknown, 03/25/14) butorphanol (Verified Allergy, Unknown, 03/25/14) codeine (Verified Allergy, Unknown, 03/25/14) ketorolac (Verified Allergy, Unknown, 03/25/14) phenobarbital (Verified Allergy, Unknown, 03/25/14) phenytoin (Verified Allergy, Unknown, 03/25/14) PMhx/Soc History of Surgery: Yes (C- section & brain tumor removal) Anesthesia Reaction: No Hx Neurological Disorder: No Hx Respiratory Disorders: Yes (Pleural effusion,s/p thoracentesis) Hx Cardiac Disorders: Yes (CHF,HI,CAD) Hx Psychiatric Problems: Yes ("Anxiety") Hx Miscellaneous Medical Probl: No Hx Alcohol Use: Yes Hx Substance Use: Yes (Methamphetamines) Hx Tobacco Use: Yes Smoking Status: Current every day smoker Physical Exam Vitals Vital Signs Date Time Temp Pulse Resp B/P Pulse Ox O2 Delivery O2 Flow Rate FiO2 12/01/16 00:11 97.4 85 22 132/74 98 Physical Exam Const: [] Head: Atraumatic Eyes: Normal Conjunctiva ENT: Normal External Ears, Nose and Mouth. Neck: Full range of motion..~ No meningismus. Resp: Clear to auscultation bilaterally Cardio: Regular rate and rhythm, no murmurs Abd: Soft, non tender, non distended. Normal bowel sounds Skin: No petechiae or rashes Back: No midline or flank tenderness Ext: No cyanosis, or edema Neur: Awake and alert Psych: Normal Mood and Affect Procedures/MDM Medical decision-making: A 38-year-old female was unable to walk the patient will be admitted for social reasons. I spent by case management. Hospitalist notified. Departure Diagnosis: Primary Impression: Shortness of breath Condition: Stable DAVID LOPEZ Dec 01, 2016 02:47
[2016-12-01] MEDS ORDERED: morphine 4 MG/ML VIAL IV STA (05:12)
[2016-12-01] MEDS ORDERED: LORAZEPAM 0.5 MG TAB PO PRN (06:00)
[2016-12-01] MEDS ORDERED: METOCLOPRAMIDE 10 MG INJ IV PRN (06:00)
[2016-12-01] MEDS ORDERED: NACL 0.9% 3 ML SYG IV SCH (06:00)
[2016-12-01] MEDS ORDERED: ONDANSETRON 4 MG TAB PO PRN (06:00)
[2016-12-01] MEDS: FAMOTIDINE 20 MG TAB PO SCH ×3 (09:00→21:00)
[2016-12-01] MEDS: THIAMINE 100 MG TAB PO SCH ×2 (09:00→11:22)
[2016-12-01] MEDS: LACTULOSE 30ML CUP PO SCH ×3 (09:00→21:00)
[2016-12-01] MEDS: GABAPENTIN 300 MG CAP PO SCH ×3 (11:22→21:55)
[2016-12-01] MEDS: ALBUTEROL HFA 8 GM INHALER INH SCH ×3 (12:02→21:00)
--- NOTE | 2016-12-01 12:02 | PSY ---
Date/Time of Note Date/Time of Note DATE: 12/01/16 TIME: 10:58 Psychiatric Subjective Eval Consent Pt consented to telemedicine: Yes Subjective Evaluation Patient location: emergency Chief Complaint: Please help me . Reason for consult: Suicidal ideation. History of present illness HISTORY OF PRESENT ILLNESS: The patient is a 46-year-old female with a history of liver cirrhosis, diabetes, encephalopathy, drug abuse, mainly amphetamines, psychiatric disorder, pleural effusion, status post thoracentesis, CHF, coronary artery disease and probable brain tumor removal who has transferred from outside hospital after she presented on November 28 complaining of loss of consciousness and difficulty walking. The patient had been admitted here recently for 14 days and just left November 26. At that time, she was admitted for encephalopathy. She was evaluated by tele psych and was placed on a 5150 hold but after it was determined that she was no longer danger to self or others the patient decided to leave against medical advice. Review of records from [facility] prior to her last hospitalization showed that the patient was evaluated by a neurologist, but she was unable to complete an EEG or CT angiogram of the head and neck, because she was restless. Her ammonia level was also elevated at the outside hospital. On the day of her discharge, she presents to the ED with complaints of suicidal ideation with intent and plan. She said that she tried "suicide by advertising copywriter" and was unsuccessful. She said if she was able to ambulate, she would run into traffic. Because of her complaints of suicidal ideation, a psychiatric consult was requested. The patient was irritable during the interview. She was adamant about being suicidal. She states that she is feeling helpless and hopeless about her declining health. PAST SURGICAL HISTORY: and probable brain tumor removal. SOCIAL HISTORY: Positive for drug abuse, mainly methamphetamine. Homeless ALLERGIES: 1. ACETAMINOPHEN, 2. BUTORPHANOL. 3. CODEINE. 4. TORADOL. 5. PHENOBARBITAL. 6. PHENYTOIN. HOME MEDICATIONS: 1. Albuterol. 2. Gabapentin. 3. Ativan. 4. Lactulose. 5. Thiamine. Past psychiatric history She said that she was hospitalized on one occasion against her will on a 5150 for suicidal ideation. She has been prescribed Ativan in the past. Medical history Problems Medical Problems: (1) Congestive heart failure Status: Acute (2) Shortness of breath Status: Acute Allergies: Coded Allergies: acetaminophen (Verified Allergy, Unknown, 12/01/16) butorphanol (Verified Allergy, Unknown, 12/01/16) codeine (Verified Allergy, Unknown, 12/01/16) ketorolac (Verified Allergy, Unknown, 12/01/16) phenobarbital (Verified Allergy, Unknown, 12/01/16) phenytoin (Verified Allergy, Unknown, 12/01/16) Substance Abuse Substance abuse history: Yes Social History Marital status: single Level of education: some college Occupation/Custodial: disabled. Psychiatric Objective Eval Review of Systems: Constitutional: Abnormal Eyes: Normal Neck: Normal Respiratory: Abnormal Chest/Breast: Normal Cardiovascular: Abnormal GI: Abnormal Genitourinary: Abnormal Skin: Normal Lymphatic: Normal Musculoskeletal: Abnormal Neurological: Abnormal Other: Complaints of loss of appetite, engery. Difficulty with ambulation. Problems with urination. Physical Examination: Sleep: Adequate Appetite: Decreased Energy: Decreased Interest: Decreased Mental Status Examination: Eye Contact: Fair Psychomotor Activity: Normal Behavior: Friendly, Agitated Speech: Clear AFFECT: Depressed Mood: Angry, Irritable Though Process: Linear Thought Content: Normal Suicidal: Yes On 72 hour hold: Yes Orientation: x4 Cognition: Alert Insight: Intact Judgement: Intact Attention Span: Intact Assessment and Plan Assessment/Diagnosis [place] I: F39 Mood disorder NOS Rule out malingering [place] II: Borderline personality features. [place] III: Diabetes, Cirrhosis of the liver, S/P brain tumor. CHF, [place] IV: homeless, lack of social support [place] V: 30 actively suicidal Recommendation/Plan Medication Management The patient may benefit from an effexor trial, which may reduce symptoms of anxiety, chronic pain and depression. Since she presents with suicidal ideation and has expressed intent and plan, and has multiple positive risks factors for suicide, she should be assessed for 5150. She also should be assessed for malingering, as staff have suggested that she may be seeking hospitalizing for housing and not for treatment. 5150 Recommendation: ROSEANNA Cash MD Dec 01, 2016 12:02
[2016-12-01 19:15] VITALS: TEMP 98.4
[2016-12-01] MEDS ORDERED: IBUPROFEN 600 MG TAB PO PRN (21:30)
[2016-12-01 21:45] VITALS: Ht 167.6 cm; Wt 95.0 kg
[2016-12-01 22:28] VITALS: BP 115/68; RESP 20
--- NOTE | 2016-12-01 22:34 | HP ---
DATE OF ADMISSION: 12/01/2016 CHIEF COMPLAINT: Generalized weakness, inability to walk. REASON FOR ADMISSION: Generalized weakness, alcoholic liver cirrhosis. HISTORY OF PRESENT ILLNESS: This is a 46-year-old female who has a past medical history of alcoholi c liver cirrhosis causing pancytopenia. The patient was recently admitted at [facility] from 11/16 to 11/26/2016. At that time, she had pneumonia, UTI which was treated with IV ant ibiotics, subsequently changed to the p.o. The patient has a history of longstanding psychiatric di sorder and alcoholic liver cirrhosis. She has been malingering with some other complaints. Some of her complaints were not real. She discharged home on 11/26/2016. One day later, she presented jana to the [facility] on 11/28/2016 with weakness, thrombocytopenia and anemia. She got admitted to the med/surg floor. The patient has Dilaudid-seeking behavior while being in the ospital. Her pain medication was stopped, had a telepsychiatry evaluation, and a social work lecturer cons ultation was done. She was discharged on 11/30/2016. She came back 12/01/2016 with generalized wea kness and complaint of inability to walk. She refused to have a physical therapy evaluation in the emergency room. She also had a telepsychiatry consultation done. The patient gets admitted to the med/surg floor for generalized weakness and inability to walk. The patient refused to have a physical therapy evaluation while being in the emergency room. REVIEW OF SYSTEMS: Positive for weakness and inability to walk. Other review of systems has been o btained and is negative except what is mentioned in the history of present illness. PAST MEDICAL HISTORY: 1. History of alcoholic liver cirrhosis, pancytopenia, pleural effusion requiring thoracentesis. 2. Reported history of coronary artery disease and congestive heart failure. The patient recently had echocardiogram done which showed ejection fraction 60% with stage I diastolic dysfunction. 3. History of left shoulder dislocation. 4. History of diabetes mellitus. 5. History of substance abuse including methamphetamine. 6. History of anxiety. PAST SURGICAL HISTORY: History of and brain tumor removal. SOCIAL HISTORY: The patient has a history of substance abuse including methamphetamine. Previous h istory of alcohol abuse, quit in 2012. No smoking. FAMILY HISTORY: Not available. PHYSICAL EXAMINATION: VITAL SIGNS: Temperature 98.4, heart rate 71, respirations 16, blood pressure 127/98, saturation 10 0% on 2 L nasal cannula. GENERAL: Awake, alert. No distress. HEENT: Normal. Oropharynx clear. NECK: Supple. No JVD, no lymphadenopathy. LUNGS: Clear to auscultation. No crackles, no wheezes. HEART: S1, S2 with regular rhythm. No murmur. ABDOMEN: Soft, nontender, nondistended. Bowel sounds are present. EXTREMITIES: No clubbing, cyanosis, edema. NEUROLOGICAL: Nonfocal, intact. PSYCHIATRIC: Appropriate affect and mood. LABORATORY DATA: WBC 3.2, hemoglobin 10.1, platelet count is 68. Sodium 138, potassium 3.3, chlori de 102, bicarbonate 25, BUN 18, creatinine 0.6, glucose 94. The patient had these labs done on 10/2016. No labs today. IMPRESSION: This is a 46-year-old female who gets admitted for: 1. Generalized weakness, inability to walk as reported per the patient. The patient refused to hav e a physical therapy evaluation in the emergency room. 2. History of anxiety. 3. History of substance abuse including methamphetamine. 4. History of alcoholic liver cirrhosis with pancytopenia. 5. History of diabetes mellitus. 6. History of hyperlipidemia. PLAN: The patient was seen in the emergency room. Initially the attempt was made to discharge the patient from the emergency room. I had emergency room doctors call the social work lecturer consultation. The patient was seen by social work lecturer consultation, and as per the social work lecturer consultation, the patient was giving some weird history and irregular complaints. She had a telepsychiatric consultat ion done. The patient was evaluated by ____, and the patient was placed on a 5150 hold. The oleksandr eva was ordered to have a physical therapy evaluation. She refused to have a physical therapy heidi luation in the emergency room. The patient gets admitted to the med/surg floor. We will stop all o f her pain medications ____ she has no other organic reason for pain. We will have Physical Therapy to follow up on the patient in the morning. Pepcid for GI prophylaxis and SCDs for DVT prophylaxis . The patient has been seen in the emergency room, and she will be getting admitted to the med/surg fl oor. The social work lecturer has to follow up and work aggressively on this patient to get her to the [facility] facility. She has no medical reasons to stay on the medicine service. Dictated By: SHAHRIAR BAEZ MD, KP/SASHA Conf#: [id number] DID#: [id number]
[2016-12-02] MEDS: ALBUTEROL HFA 8 GM INHALER INH SCH ×6 (01:00→21:00)
[2016-12-02 06:18] LABS: ADD SCAN DIFF NO
[2016-12-02 06:20] LABS: ABNORMAL IP MESSAGE 1; HEMATOCRIT 34.1 % (37.0-47.0); HEMOGLOBIN 11.2 g/dl (12.0-16.0); MEAN CORPUSCULAR HEMOGLOBIN 33.2 pg (29.0-33.0); MEAN CORPUSCULAR HGB CONC 32.8 g/dl (32.0-37.0); MEAN CORPUSCULAR VOLUME 101.2 fl (82.0-101.0); MEAN PLATELET VOLUME 10.5 fl (7.4-10.4); PLATELET COUNT 82 10^3/UL (140-415); RED BLOOD COUNT 3.37 10^6/ul (4.20-5.40); WHITE BLOOD COUNT 2.4 10^3/ul (4.8-10.8)
[2016-12-02 07:15] LABS: POTASSIUM 3.5 mmol/L (3.5-5.1)
[2016-12-02 07:18] LABS: CREATININE 0.55 mg/dl (0.44-1.00)
[2016-12-02 07:19] LABS: CALCIUM 7.3 mg/dl (8.4-10.2)
[2016-12-02 07:38] VITALS: BP 110/59; RESP 16
[2016-12-02] MEDS: GABAPENTIN 300 MG CAP PO SCH ×4 (08:48→21:22)
[2016-12-02] MEDS: LACTULOSE 30ML CUP PO SCH ×4 (08:48→21:22)
[2016-12-02] MEDS: FAMOTIDINE 20 MG TAB PO SCH ×3 (08:48→20:51)
[2016-12-02] MEDS: THIAMINE 100 MG TAB PO SCH ×2 (08:48→09:00)
[2016-12-02 11:23] LABS: BASOPHIL # 0.1 10^3/ul (0.0-0.1); EOSINOPHILS # 0.4 10^3/ul (0.0-0.5); LYMPHOCYTES # 0.6 10^3/ul (0.8-2.9); NEUTROPHIL # 1.2 10^3/ul (1.6-7.5)
--- NOTE | 2016-12-02 12:28 | PN ---
Date/Time of Note Date/Time of Note DATE: 12/02/16 TIME: 12:24 Assessment/Plan VTE Prophylaxis VTE Prophylaxis Intervention: SCD's Lines/Catheters [facility] Saline Lock Urinary Cath still in place: No Assessment/Plan Assessment/Plan 1. Generalized weakness, inability to walk as reported per the patient. The patient refused to have a physical therapy evaluation in the emergency room. 2. History of anxiety. 3. History of substance abuse including methamphetamine. 4. History of alcoholic liver cirrhosis with pancytopenia. 5. History of diabetes mellitus. 6. History of hyperlipidemia. Plan: pt is stable,eating diet well, BP stable afebrile Advised to cooperate with physical therapy, pt has no reasaon to have pain, no pain meds needed- explained to patient she is medically cleared to go to psych floor/facility. SCD for DVT prophylaxis Subjective 24 Hr Interval Summary Free Text/Dictation pt stable, afebrile, Pt refused to do physical therapy Exam/Review of Systems Vital Signs Vitals Vital Signs Date Time Temp Pulse Resp B/P Pulse Ox O2 Delivery O2 Flow Rate FiO2 12/02/16 07:38 98.2 74 16 110/59 96 12/02/16 01:27 Nasal Cannula 2.0 Intake and Output 12/01/16 12/01/16 12/02/16 15:00 23:00 07:00 Intake Total 360 ml Balance 360 ml Exam GENERAL: Awake, alert. No distress. HEENT: Normal. Oropharynx clear. NECK: Supple. No JVD, no lymphadenopathy. LUNGS: Clear to auscultation. No crackles, no wheezes. HEART: S1, S2 with regular rhythm. No murmur. ABDOMEN: Soft, nontender, nondistended. Bowel sounds are present. EXTREMITIES: No clubbing, cyanosis, edema. NEUROLOGICAL: Nonfocal, intact. PSYCHIATRIC: Appropriate affect and mood. Results Result Diagram: 12/02/16 0528 12/02/16 0529 Results 24 hrs Laboratory Tests Test 12/02/16 05:28 12/02/16 05:29 White Blood Count 2.4 #L Red Blood Count 3.37 L Hemoglobin 11.2 L Hematocrit 34.1 L Mean Corpuscular Volume 101.2 H Mean Corpuscular Hemoglobin 33.2 H Mean Corpuscular Hemoglobin Concent 32.8 Red Cell Distribution Width 17.0 H Platelet Count 82 #L Mean Platelet Volume 10.5 H Neutrophils % 51.0 Band Neutrophils % 3.0 Lymphocytes % 27.0 Monocytes % 1.0 Eosinophils % 15.0 H Basophils % 3.0 H Neutrophils # 1.2 L Lymphocytes # 0.6 L Monocytes # 0.0 L Eosinophils # 0.4 Basophils # 0.1 Sodium Level 138 Potassium Level 3.5 Chloride Level 105 Carbon Dioxide Level 26 Anion Gap 11 Blood Urea Nitrogen 13 Creatinine 0.55 Glucose Level 92 Calcium Level 7.3 L Medications Medications Current Medications Ondansetron HCl (Zofran Tab) 4 mg Q6H PRN PO NAUSEA AND/OR VOMITING; Start 12/01 at 06:00 Metoclopramide HCl (Reglan) 10 mg Q6H PRN IV NAUSEA AND/OR VOMITING; Start 12/01 at 06:00 Famotidine (Pepcid) 20 mg Q12 PO Last administered on 12/02/16 08:48; Admin Dose 20 MG; Start 12/01/16 at 09:00 Gabapentin (Neurontin) 300 mg TID PO Last administered on 12/02/16 08:48; Admin Dose 300 MG; Start 12/01/16 at 09:00 Lactulose (Enulose) 10 gm BID PO Last administered on 12/02/16 08:48; Admin Dose 10 GM; Start 12/01/16 at 09:00 Thiamine HCl (Vitamin B1) 100 mg DAILY PO Last administered on 12/02/16 08:48; Admin Dose 100 MG; Start 12/01/16 at 09:00 Ibuprofen (Motrin) 600 mg QID PRN PO PAIN/FEVER; Start 12/01/16 at 21:30; Status SHAHRIAR WEN MD Dec 02, 2016 12:28
[2016-12-02] MEDS: traMADol 50 MG TAB PO PRN (17:58)
[2016-12-02 20:35] VITALS: BP 119/75; RESP 16
[2016-12-03] MEDS: ALBUTEROL HFA 8 GM INHALER INH SCH ×6 (01:00→20:37)
[2016-12-03] MEDS: THIAMINE 100 MG TAB PO SCH (09:00)
[2016-12-03] MEDS: LACTULOSE 30ML CUP PO SCH ×2 (09:00→21:00)
[2016-12-03] MEDS: FAMOTIDINE 20 MG TAB PO SCH ×2 (09:00→20:38)
[2016-12-03] MEDS: GABAPENTIN 300 MG CAP PO SCH ×3 (09:41→20:37)
[2016-12-03] MEDS: traMADol 50 MG TAB PO PRN (10:27)
--- NOTE | 2016-12-03 12:56 | PN ---
Date/Time of Note Date/Time of Note DATE: 12/03/16 TIME: 12:55 Assessment/Plan VTE Prophylaxis VTE Prophylaxis Intervention: SCD's Lines/Catheters IV Catheter Type (from Nrs): Saline Lock Urinary Cath still in place: No Assessment/Plan Assessment/Plan 1. Generalized weakness, inability to walk as reported per the patient. The patient refused to have a physical therapy evaluation in the emergency room. 2. History of anxiety. 3. History of substance abuse including methamphetamine. 4. History of alcoholic liver cirrhosis with pancytopenia. 5. History of diabetes mellitus. 6. History of hyperlipidemia. Plan: pt is stable,eating diet well, BP stable afebrile Advised to cooperate with physical therapy, pt has no reasaon to have pain, no pain meds needed- explained to patient she is medically cleared to go to psych floor/facility. SCD for DVT prophylaxis Subjective 24 Hr Interval Summary Free Text/Dictation pt refused PT, c/o pain but no reason to have pain, BP stable Exam/Review of Systems Vital Signs Vitals Vital Signs Date Time Temp Pulse Resp B/P Pulse Ox O2 Delivery O2 Flow Rate FiO2 12/02/16 20:35 98.6 65 16 119/75 98 12/02/16 01:27 Nasal Cannula 2.0 Intake and Output 12/02/16 12/02/16 12/03/16 15:00 23:00 07:00 Intake Total 480 ml 600 ml Balance 480 ml 600 ml Exam GENERAL: Awake, alert. No distress. HEENT: Normal. Oropharynx clear. NECK: Supple. No JVD, no lymphadenopathy. LUNGS: Clear to auscultation. No crackles, no wheezes. HEART: S1, S2 with regular rhythm. No murmur. ABDOMEN: Soft, nontender, nondistended. Bowel sounds are present. EXTREMITIES: No clubbing, cyanosis, edema. NEUROLOGICAL: Nonfocal, intact. PSYCHIATRIC: Appropriate affect and mood. Results Result Diagram: 12/02/16 0528 12/02/16 0529 Medications Medications Current Medications Ondansetron HCl (Zofran Tab) 4 mg Q6H PRN PO NAUSEA AND/OR VOMITING; Start 12/01 at 06:00 Metoclopramide HCl (Reglan) 10 mg Q6H PRN IV NAUSEA AND/OR VOMITING; Start 12/01 at 06:00 Famotidine (Pepcid) 20 mg Q12 PO ; Start 12/01/16 at 09:00 Gabapentin (Neurontin) 300 mg TID PO Last administered on 12/03/16 09:41; Admin Dose 300 MG; Start 12/01/16 at 09:00 Lactulose (Enulose) 10 gm BID PO Last administered on 12/02/16 21:22; Admin Dose 10 GM; Start 12/01/16 at 09:00 Thiamine HCl (Vitamin B1) 100 mg DAILY PO ; Start 12/01/16 at 09:00 Tramadol HCl (Ultram) 25 mg QID PRN PO PAIN Last administered on 12/03/16 10:27 ; Admin Dose 25 MG; Start 12/02/16 at 18:00 SHAHRIAR BAEZ MD Dec 03, 2016 12:56
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
[2016-12-03 19:57] LABS: BARBITURATES Negative (NEGATIVE); BENZODIAZEPINES Negative (NEGATIVE); CANNABINOIDS Negative (NEGATIVE); COCAINE Negative (NEGATIVE); OPIATES Negative (NEGATIVE)
[2016-12-03 20:24] VITALS: BP 126/81; RESP 20
[2016-12-03] MEDS: OLANZAPINE 5 MG TAB PO PRN (20:37)
[2016-12-04] MEDS: ALBUTEROL HFA 8 GM INHALER INH SCH ×6 (01:00→20:52)
[2016-12-04 07:50] VITALS: BP 116/71; RESP 18
[2016-12-04] MEDS: FAMOTIDINE 20 MG TAB PO SCH ×2 (09:20→20:18)
[2016-12-04] MEDS: GABAPENTIN 300 MG CAP PO SCH ×3 (09:20→20:17)
[2016-12-04] MEDS: THIAMINE 100 MG TAB PO SCH (09:20)
[2016-12-04] MEDS: LACTULOSE 30ML CUP PO SCH ×2 (09:21→20:17)
--- NOTE | 2016-12-04 10:37 | PN ---
Date/Time of Note Date/Time of Note DATE: 12/04/16 TIME: 10:35 Assessment/Plan VTE Prophylaxis VTE Prophylaxis Intervention: heparin Lines/Catheters IV C[facility]ter Type (from [facility]): Saline Lock Urinary Cath still in place: No Assessment/Plan Chief Complaint/Hosp Course Assessment 1. Generalized weakness, inability to walk as reported per the patient. The patient refused to have a physical therapy evaluation in the emergency room. 2. History of anxiety. 3. History of substance abuse including methamphetamine. 4. History of alcoholic liver cirrhosis with pancytopenia. 5. History of diabetes mellitus. 6. History of hyperlipidemia. Plan: 1. Continue psychiatric recommendations of Zyprexa and to usp facility placement 2. Social work recommendations 3. Case management looking for usp facility Stable for discharge from internal medicine standpoint Problems: Subjective 24 Hr Interval Summary Free Text/Dictation Patient comfortable this morning less agitated Exam/Review of Systems Vital Signs Vitals Vital Signs Date Time Temp Pulse Resp B/P Pulse Ox O2 Delivery O2 Flow Rate FiO2 12/04/16 07:50 98.7 72 18 116/71 92 12/02/16 01:27 Nasal Cannula 2.0 Intake and Output 12/03/16 12/03/16 12/04/16 15:00 23:00 07:00 Intake Total 840 ml Balance 840 ml Exam GENERAL: Well-nourished lady comfortable at rest sleeping VITAL SIGNS: per chart NECK: Supple. No JVD or lymphadenopathy. CARDIAC EXAM: S1, S2. No added sounds or murmurs. CHEST: clear bilaterally, No added sounds, rales or wheezes ABDOMEN: Soft, nontender. No guarding or rebound. EXTREMITIES: No cyanosis, clubbing or edema. NEUROLOGIC: Generalized weakness. No focal deficits. Results Result Diagram: 12/02/16 0528 12/02/16 0529 Results 24 hrs Laboratory Tests Test 12/03/16 16:45 Urine Opiates Screen Negative Urine Barbiturates Negative Urine Amphetamines Screen Positive Urine Benzodiazepines Screen Negative Urine Cocaine Screen Negative Urine Cannabinoids Negative Medications Medications Current Medications Ondansetron HCl (Zofran Tab) 4 mg Q6H PRN PO NAUSEA AND/OR VOMITING; Start 12/01 at 06:00 Metoclopramide HCl (Reglan) 10 mg Q6H PRN IV NAUSEA AND/OR VOMITING; Start 12/01 at 06:00 Famotidine (Pepcid) 20 mg Q12 PO Last administered on 12/04/16 09:20; Admin Dose 20 MG; Start 12/01/16 at 09:00 Gabapentin (Neurontin) 300 mg TID PO Last administered on 12/04/16 09:20; Admin Dose 300 MG; Start 12/01/16 at 09:00 Lactulose (Enulose) 10 gm BID PO Last administered on 12/04/16 09:21; Admin Dose 10 GM; Start 12/01/16 at 09:00 Thiamine HCl (Vitamin B1) 100 mg DAILY PO Last administered on 12/04/16 09:20; Admin Dose 100 MG; Start 12/01/16 at 09:00 Tramadol HCl (Ultram) 25 mg QID PRN PO PAIN Last administered on 12/03/16 10:27 ; Admin Dose 25 MG; Start 12/02/16 at 18:00 Olanzapine (Zyprexa) 5 mg Q12H PRN PO for anxiety Last administered on 20:37; Admin Dose 5 MG; Start 12/03/16 at 19:00 ZAHRAA MARRUFO MD, [facility] Dec 04, 2016 10:37
[2016-12-04] MEDS: OLANZAPINE 5 MG TAB PO PRN (19:05)
[2016-12-04 19:38] VITALS: BP 113/71; RESP 18
[2016-12-04] MEDS: traMADol 50 MG TAB PO PRN (20:17)
[2016-12-05] MEDS: ALBUTEROL HFA 8 GM INHALER INH SCH ×6 (01:00→20:28)
[2016-12-05] MEDS: traMADol 50 MG TAB PO PRN ×2 (03:19→20:27)
[2016-12-05 08:05] VITALS: BP 114/71; RESP 18
[2016-12-05] MEDS: LACTULOSE 30ML CUP PO SCH ×2 (09:00→20:27)
[2016-12-05] MEDS: THIAMINE 100 MG TAB PO SCH (09:00)
[2016-12-05] MEDS: FAMOTIDINE 20 MG TAB PO SCH ×2 (09:00→20:27)
[2016-12-05] MEDS: GABAPENTIN 300 MG CAP PO SCH ×3 (09:34→20:27)
--- NOTE | 2016-12-05 17:55 | PN ---
DATE: 12/05/2016 HISTORY OF PRESENT ILLNESS: The patient is a 46-year-old female with generalized weakness with anxi ety and histories of substance abuse. She has no acute complaints or distress. She says she is eat ing. She reports she is incontinent. No acute events are described. PHYSICAL EXAMINATION: GENERAL: Shows her to be a well-developed, well-nourished, chronically ill-appearing, in no acute d istress. VITAL SIGNS: Pulse 67, respirations 18, blood pressure 114/71, temperature is 98.3, room air satura tion is 93% to 97%. NECK: Showed no acute inflammation. HEART: Regular, without murmurs or gallops. CHEST: Clear. ABDOMEN: Soft, nontender without masses. EXTREMITIES: No clubbing, cyanosis, or edema. NEUROLOGIC: Alert, weak, anxious. Moves all extremities. No new lab or x-ray data. ASSESSMENT: 1. Generalized weakness. 2. Psychiatric disturbance with history of anxiety. 3. History of substance abuse including methamphetamine, positive currently. 4. History of alcoholic cirrhosis. 5. History of diabetes mellitus. 6. History of dyslipidemia. 7. Pancytopenia. PLAN: Continue Zyprexa as per psychiatry. Social service and case management working on placement hopefully over the next day or two. Discussed with nursing. Dictated By: EVELYN PAIGE/SASHA Conf#: [id number] DID#: [id number]
[2016-12-05 19:00] VITALS: BP 128/74; RESP 20
[2016-12-05] MEDS: OLANZAPINE 5 MG TAB PO PRN (19:00)
[2016-12-06] MEDS: ALBUTEROL HFA 8 GM INHALER INH SCH ×6 (01:00→21:00)
[2016-12-06 08:24] VITALS: BP 105/65; RESP 20
[2016-12-06] MEDS: LACTULOSE 30ML CUP PO SCH ×2 (09:00→20:21)
[2016-12-06] MEDS: THIAMINE 100 MG TAB PO SCH (09:00)
[2016-12-06] MEDS: FAMOTIDINE 20 MG TAB PO SCH ×2 (09:00→20:20)
[2016-12-06] MEDS: GABAPENTIN 300 MG CAP PO SCH ×3 (09:12→20:20)
[2016-12-06] MEDS: traMADol 50 MG TAB PO PRN (12:16)
[2016-12-06] MEDS: OLANZAPINE 5 MG TAB PO PRN (12:16)
--- NOTE | 2016-12-06 18:15 | PN ---
Date/Time of Note Date/Time of Note DATE: 12/06/16 TIME: 18:11 Assessment/Plan VTE Prophylaxis VTE Prophylaxis Intervention: SCD's Lines/Catheters IV Catheter Type (from [facility] [place]): Saline Lock Urinary Cath still in place: No Assessment/Plan Chief Complaint/Hosp Course 1. Generalized weakness -cont PT 2. Psychiatric disturbance with history of anxiety -Will need transfer to Psych facility - Continue Zyprexa as per psychiatry - Social service and case management working on placement 3. History of substance abuse including methamphetamine, positive currently. 4. History of alcoholic cirrhosis. 5. History of diabetes mellitus. 6. History of dyslipidemia. 7. Pancytopenia likely 2/2 Liver Dz PPx- SCD's Problems: Subjective 24 Hr Interval Summary Musculoskeletal: bone/joint pain Exam/Review of Systems Vital Signs Vitals Vital Signs Date Time Temp Pulse Resp B/P Pulse Ox O2 Delivery O2 Flow Rate FiO2 12/06/16 08:24 97.7 73 20 105/65 92 Intake and Output 12/05/16 12/05/16 12/06/16 15:00 23:00 07:00 Intake Total 780 ml 720 ml Balance 780 ml 720 ml Exam Constitutional: alert Psych: confusion Respiratory: clear to auscultation Cardiovascular: regular rate and rhythm Gastrointestinal: soft, No distended Musculoskeletal: nl extremities to inspection Results Result Diagram: 12/02/16 0528 12/02/16 0529 Medications Medications Current Medications Ondansetron HCl (Zofran Tab) 4 mg Q6H PRN PO NAUSEA AND/OR VOMITING; Start 12/01 at 06:00 Metoclopramide HCl (Reglan) 10 mg Q6H PRN IV NAUSEA AND/OR VOMITING; Start 12/01 at 06:00 Famotidine (Pepcid) 20 mg Q12 PO Last administered on 12/04/16 09:20; Admin Dose 20 MG; Start 12/01/16 at 09:00 Gabapentin (Neurontin) 300 mg TID PO Last administered on 12/06/16 12:16; Admin Dose 300 MG; Start 12/01/16 at 09:00 Lactulose (Enulose) 10 gm BID PO Last administered on 12/05/16 20:27; Admin Dose 10 GM; Start 12/01/16 at 09:00 Thiamine HCl (Vitamin B1) 100 mg DAILY PO Last administered on 12/04/16 09:20; Admin Dose 100 MG; Start 12/01/16 at 09:00 Tramadol HCl (Ultram) 25 mg QID PRN PO PAIN Last administered on 12/06/16 12: 16; Admin Dose 25 MG; Start 12/02/16 at 18:00 Olanzapine (Zyprexa) 5 mg Q12H PRN PO for anxiety Last administered on 12:16; Admin Dose 5 MG; Start 12/03/16 at 19:00 JARROD MARIA Dec 06, 2016 18:15
[2016-12-06 20:00] VITALS: BP 117/80; RESP 20
[2016-12-07] MEDS: ALBUTEROL HFA 8 GM INHALER INH SCH ×6 (01:00→21:00)
[2016-12-07] MEDS: OLANZAPINE 5 MG TAB PO PRN ×2 (01:55→22:21)
[2016-12-07] MEDS: traMADol 50 MG TAB PO PRN (03:15)
[2016-12-07 07:51] VITALS: BP 124/64; RESP 20
[2016-12-07] MEDS: THIAMINE 100 MG TAB PO SCH (09:00)
[2016-12-07] MEDS: LACTULOSE 30ML CUP PO SCH ×2 (09:00→20:37)
[2016-12-07] MEDS: FAMOTIDINE 20 MG TAB PO SCH ×2 (09:00→20:36)
[2016-12-07] MEDS: GABAPENTIN 300 MG CAP PO SCH ×3 (09:52→20:36)
--- NOTE | 2016-12-07 16:39 | PN ---
Date/Time of Note Date/Time of Note DATE: 12/07/16 TIME: 16:38 Assessment/Plan VTE Prophylaxis VTE Prophylaxis Intervention: SCD's Lines/Catheters IV C[facility]ter Type (from [facility]): Saline Lock Urinary Cath still in place: No Assessment/Plan Chief Complaint/Hosp Course 1. Generalized weakness -cont PT 2. Psychiatric disturbance with history of anxiety -Will need transfer to Psych facility - Continue Zyprexa as per psychiatry - Social service and case management working on placement 3. History of substance abuse including methamphetamine, positive currently. 4. History of alcoholic cirrhosis. 5. History of diabetes mellitus. 6. History of dyslipidemia. 7. Pancytopenia likely 2/2 Liver Dz PPx- SCD's Problems: Subjective 24 Hr Interval Summary Musculoskeletal: bone/joint pain Exam/Review of Systems Vital Signs Vitals Vital Signs Date Time Temp Pulse Resp B/P Pulse Ox O2 Delivery O2 Flow Rate FiO2 12/07/16 07:51 98.5 79 20 124/64 95 Intake and Output 12/06/16 12/06/16 12/07/16 15:00 23:00 07:00 Intake Total 1200 ml 960 ml Balance 1200 ml 960 ml Exam Constitutional: alert Psych: confusion Respiratory: clear to auscultation Cardiovascular: regular rate and rhythm Gastrointestinal: soft, No distended Musculoskeletal: nl extremities to inspection Medications Medications Current Medications Ondansetron HCl (Zofran Tab) 4 mg Q6H PRN PO NAUSEA AND/OR VOMITING; Start 12/01 at 06:00 Metoclopramide HCl (Reglan) 10 mg Q6H PRN IV NAUSEA AND/OR VOMITING; Start 12/01 at 06:00 Famotidine (Pepcid) 20 mg Q12 PO Last administered on 12/06/16 20:20; Admin Dose 20 MG; Start 12/01/16 at 09:00 Gabapentin (Neurontin) 300 mg TID PO Last administered on 12/07/16 13:52; Admin Dose 300 MG; Start 12/01/16 at 09:00 Lactulose (Enulose) 10 gm BID PO Last administered on 12/06/16 20:21; Admin Dose 10 GM; Start 12/01/16 at 09:00 Thiamine HCl (Vitamin B1) 100 mg DAILY PO Last administered on 12/04/16 09:20; Admin Dose 100 MG; Start 12/01/16 at 09:00 Tramadol HCl (Ultram) 25 mg QID PRN PO PAIN Last administered on 12/07/16 03: 15; Admin Dose 25 MG; Start 12/02/16 at 18:00 Olanzapine (Zyprexa) 5 mg Q12H PRN PO for anxiety Last administered on 01:55; Admin Dose 5 MG; Start 12/03/16 at 19:00 JARROD MARIA Dec 07, 2016 16:38
[2016-12-07 20:20] VITALS: BP 128/78; RESP 19
[2016-12-08] MEDS: ALBUTEROL HFA 8 GM INHALER INH SCH ×6 (01:00→20:20)
[2016-12-08] MEDS: traMADol 50 MG TAB PO PRN (02:56)
[2016-12-08 07:26] VITALS: BP 127/64; RESP 18
[2016-12-08] MEDS: FAMOTIDINE 20 MG TAB PO SCH ×2 (09:00→20:25)
[2016-12-08] MEDS: LACTULOSE 30ML CUP PO SCH ×2 (09:00→20:25)
[2016-12-08] MEDS: THIAMINE 100 MG TAB PO SCH (09:00)
[2016-12-08] MEDS: GABAPENTIN 300 MG CAP PO SCH ×3 (09:30→20:23)
--- NOTE | 2016-12-08 13:41 | PN ---
Date/Time of Note Date/Time of Note DATE: 12/08/16 TIME: 13:40 Assessment/Plan VTE Prophylaxis VTE Prophylaxis Intervention: SCD's Lines/Catheters IV C[facility] Type (from [facility]): Saline Lock Urinary Cath still in place: No Assessment/Plan Chief Complaint/Hosp Course 1. Generalized weakness -cont PT 2. Psychiatric disturbance with history of anxiety -Will need transfer to Psych facility - Continue Zyprexa as per psychiatry - Social service and case management working on placement 3. History of substance abuse including methamphetamine, positive currently. 4. History of alcoholic cirrhosis. 5. History of diabetes mellitus. 6. History of dyslipidemia. 7. Pancytopenia likely 2/2 Liver Dz PPx- SCD's Problems: Subjective 24 Hr Interval Summary Constitutional: no complaints Exam/Review of Systems Vital Signs Vitals Vital Signs Date Time Temp Pulse Resp B/P Pulse Ox O2 Delivery O2 Flow Rate FiO2 12/08/16 07:26 98.2 68 18 127/64 94 Intake and Output 12/07/16 12/07/16 12/08/16 14:59 22:59 06:59 Intake Total 1320 ml 840 ml Balance 1320 ml 840 ml Exam Constitutional: alert Respiratory: clear to auscultation Cardiovascular: regular rate and rhythm Gastrointestinal: soft, No distended Musculoskeletal: nl extremities to inspection Medications Medications Current Medications Ondansetron HCl (Zofran Tab) 4 mg Q6H PRN PO NAUSEA AND/OR VOMITING; Start 12/01 at 06:00 Metoclopramide HCl (Reglan) 10 mg Q6H PRN IV NAUSEA AND/OR VOMITING; Start 12/01 at 06:00 Famotidine (Pepcid) 20 mg Q12 PO Last administered on 12/07/16 20:36; Admin Dose 20 MG; Start 12/01/16 at 09:00 Gabapentin (Neurontin) 300 mg TID PO Last administered on 12/08/16 12:21; Admin Dose 300 MG; Start 12/01/16 at 09:00 Lactulose (Enulose) 10 gm BID PO Last administered on 12/07/16 20:37; Admin Dose 10 GM; Start 12/01/16 at 09:00 Thiamine HCl (Vitamin B1) 100 mg DAILY PO Last administered on 12/04/16 09:20; Admin Dose 100 MG; Start 12/01/16 at 09:00 Tramadol HCl (Ultram) 25 mg QID PRN PO PAIN Last administered on 12/08/16 02: 56; Admin Dose 25 MG; Start 12/02/16 at 18:00 Olanzapine (Zyprexa) 5 mg Q12H PRN PO for anxiety Last administered on 22:21; Admin Dose 5 MG; Start 12/03/16 at 19:00 JARROD MARIA Dec 08, 2016 13:41
[2016-12-08 19:57] VITALS: BP 119/65; RESP 19
[2016-12-09] MEDS: ALBUTEROL HFA 8 GM INHALER INH SCH ×6 (00:45→20:31)
[2016-12-09] MEDS: OLANZAPINE 5 MG TAB PO PRN (00:53)
[2016-12-09] MEDS: traMADol 50 MG TAB PO PRN (03:13)
[2016-12-09 07:21] VITALS: BP 121/78; RESP 16
[2016-12-09] MEDS: LACTULOSE 30ML CUP PO SCH ×2 (09:00→20:31)
[2016-12-09] MEDS: THIAMINE 100 MG TAB PO SCH (09:00)
[2016-12-09] MEDS: FAMOTIDINE 20 MG TAB PO SCH ×2 (09:00→20:31)
[2016-12-09] MEDS: GABAPENTIN 300 MG CAP PO SCH ×3 (09:27→20:31)
--- NOTE | 2016-12-09 18:11 | PN ---
Date/Time of Note Date/Time of Note DATE: 12/09/16 TIME: 18:11 Assessment/Plan VTE Prophylaxis VTE Prophylaxis Intervention: SCD's Lines/Catheters IV Catheter Type (from [facility]): Saline Lock Urinary Cath still in place: No Assessment/Plan Chief Complaint/Hosp Course 1. Generalized weakness -cont PT 2. Psychiatric disturbance with history of anxiety -Will need transfer to Psych facility - Continue Zyprexa as per psychiatry - Social service and case management working on placement 3. History of substance abuse including methamphetamine, positive currently. 4. History of alcoholic cirrhosis. 5. History of diabetes mellitus. 6. History of dyslipidemia. 7. Pancytopenia likely 2/2 Liver Dz PPx- SCD's Problems: Subjective 24 Hr Interval Summary Constitutional: no complaints Exam/Review of Systems Vital Signs Vitals Vital Signs Date Time Temp Pulse Resp B/P Pulse Ox O2 Delivery O2 Flow Rate FiO2 12/09/16 07:21 98.2 72 16 121/78 94 Intake and Output 12/08/16 12/08/16 12/09/16 15:00 23:00 07:00 Intake Total 480 ml 560 ml Output Total 400 ml Balance 80 ml 560 ml Exam Constitutional: alert Psych: confusion Respiratory: clear to auscultation Cardiovascular: regular rate and rhythm Gastrointestinal: soft, No distended Musculoskeletal: nl extremities to inspection Medications Medications Current Medications Ondansetron HCl (Zofran Tab) 4 mg Q6H PRN PO NAUSEA AND/OR VOMITING; Start 12/01 at 06:00 Metoclopramide HCl (Reglan) 10 mg Q6H PRN IV NAUSEA AND/OR VOMITING; Start 12/01 at 06:00 Famotidine (Pepcid) 20 mg Q12 PO Last administered on 12/07/16 20:36; Admin Dose 20 MG; Start 12/01/16 at 09:00 Gabapentin (Neurontin) 300 mg TID PO Last administered on 12/09/16 13:12; Admin Dose 300 MG; Start 12/01/16 at 09:00 Lactulose (Enulose) 10 gm BID PO Last administered on 12/07/16 20:37; Admin Dose 10 GM; Start 12/01/16 at 09:00 Thiamine HCl (Vitamin B1) 100 mg DAILY PO Last administered on 12/04/16 09:20; Admin Dose 100 MG; Start 12/01/16 at 09:00 Tramadol HCl (Ultram) 25 mg QID PRN PO PAIN Last administered on 12/09/16 03: 13; Admin Dose 25 MG; Start 12/02/16 at 18:00 Olanzapine (Zyprexa) 5 mg Q12H PRN PO for anxiety Last administered on 00:53; Admin Dose 5 MG; Start 12/03/16 at 19:00 JARROD MARIA Dec 09, 2016 18:11
[2016-12-09 20:01] VITALS: BP 120/74; RESP 16
[2016-12-10] MEDS: ALBUTEROL HFA 8 GM INHALER INH SCH ×6 (00:53→21:00)
[2016-12-10] MEDS: traMADol 50 MG TAB PO PRN ×2 (01:39→05:39)
[2016-12-10] MEDS: OLANZAPINE 5 MG TAB PO PRN (01:40)
[2016-12-10 07:40] VITALS: BP 132/82; RESP 18
[2016-12-10] MEDS: THIAMINE 100 MG TAB PO SCH (09:00)
[2016-12-10] MEDS: FAMOTIDINE 20 MG TAB PO SCH ×2 (09:00→21:00)
[2016-12-10] MEDS: GABAPENTIN 300 MG CAP PO SCH ×3 (09:21→14:07)
[2016-12-10] MEDS: LACTULOSE 30ML CUP PO SCH (09:21)
--- NOTE | 2016-12-10 17:42 | PN ---
Date/Time of Note Date/Time of Note DATE: 12/10/16 TIME: 17:41 Assessment/Plan VTE Prophylaxis VTE Prophylaxis Intervention: SCD's Lines/Catheters IV Catheter Type (from [facility]): Saline Lock Urinary Cath still in place: No Assessment/Plan Chief Complaint/Hosp Course 1. Generalized weakness -cont PT 2. Psychiatric disturbance with history of anxiety -Will need transfer to Psych facility - Continue Zyprexa as per psychiatry - Social service and case management working on placement 3. History of substance abuse including methamphetamine, positive currently. 4. History of alcoholic cirrhosis. 5. History of diabetes mellitus. 6. History of dyslipidemia. 7. Pancytopenia likely 2/2 Liver Dz PPx- SCD's Problems: Subjective 24 Hr Interval Summary Constitutional: no complaints Exam/Review of Systems Vital Signs Vitals Vital Signs Date Time Temp Pulse Resp B/P Pulse Ox O2 Delivery O2 Flow Rate FiO2 12/10/16 07:40 98.6 75 18 132/82 95 Intake and Output 12/09/16 12/09/16 12/10/16 15:00 23:00 07:00 Intake Total 700 ml 800 ml Balance 700 ml 800 ml Exam Constitutional: alert Psych: confusion Respiratory: clear to auscultation Cardiovascular: regular rate and rhythm Gastrointestinal: soft, No distended Musculoskeletal: nl extremities to inspection Medications Medications Current Medications Ondansetron HCl (Zofran Tab) 4 mg Q6H PRN PO NAUSEA AND/OR VOMITING; Start 12/01 at 06:00 Metoclopramide HCl (Reglan) 10 mg Q6H PRN IV NAUSEA AND/OR VOMITING; Start 12/01 at 06:00 Famotidine (Pepcid) 20 mg Q12 PO Last administered on 12/09/16 20:31; Admin Dose 20 MG; Start 12/01/16 at 09:00 Gabapentin (Neurontin) 300 mg TID PO Last administered on 12/10/16 14:07; Admin Dose 300 MG; Start 12/01/16 at 09:00 Lactulose (Enulose) 10 gm BID PO Last administered on 12/10/16 09:21; Admin Dose 10 GM; Start 12/01/16 at 09:00 Thiamine HCl (Vitamin B1) 100 mg DAILY PO Last administered on 12/04/16 09:20; Admin Dose 100 MG; Start 12/01/16 at 09:00 Tramadol HCl (Ultram) 25 mg QID PRN PO PAIN Last administered on 12/10/16 05: 39; Admin Dose 25 MG; Start 12/02/16 at 18:00 Olanzapine (Zyprexa) 5 mg Q12H PRN PO for anxiety Last administered on 01:40; Admin Dose 5 MG; Start 12/03/16 at 19:00 JARROD MARIA Dec 10, 2016 17:42
[2016-12-11] MEDS: GABAPENTIN 300 MG CAP PO SCH ×4 (00:01→20:06)
[2016-12-11] MEDS: traMADol 50 MG TAB PO PRN ×2 (00:01→22:05)
[2016-12-11] MEDS: LACTULOSE 30ML CUP PO SCH ×3 (00:02→20:06)
[2016-12-11] MEDS: ALBUTEROL HFA 8 GM INHALER INH SCH ×6 (01:00→20:07)
[2016-12-11 07:27] VITALS: BP 135/75; RESP 18
[2016-12-11] MEDS: FAMOTIDINE 20 MG TAB PO SCH ×2 (08:52→20:07)
[2016-12-11] MEDS: THIAMINE 100 MG TAB PO SCH (08:52)
[2016-12-11 20:02] VITALS: BP 127/79; RESP 16
--- NOTE | 2016-12-11 22:06 | PN ---
Date/Time of Note Date/Time of Note DATE: 12/11/16 TIME: 22:05 Assessment/Plan VTE Prophylaxis VTE Prophylaxis Intervention: SCD's Lines/Catheters IV Catheter Type (from Nrs): Saline Lock Urinary Cath still in place: No Assessment/Plan Assessment/Plan 1. Generalized weakness -cont PT 2. Psychiatric disturbance with history of anxiety -Will need transfer to Psych facility - Continue Zyprexa as per psychiatry - Social service and case management working on placement 3. History of substance abuse including methamphetamine, positive currently. 4. History of alcoholic cirrhosis. 5. History of diabetes mellitus. 6. History of dyslipidemia. 7. Pancytopenia likely 2/2 Liver Dz PPx- SCD's Subjective 24 Hr Interval Summary Free Text/Dictation pt refused to talk to me, Bp stable Exam/Review of Systems Vital Signs Vitals Vital Signs Date Time Temp Pulse Resp B/P Pulse Ox O2 Delivery O2 Flow Rate FiO2 12/11/16 20:02 98.2 84 16 127/79 97 Intake and Output 12/10/16 12/10/16 12/11/16 15:00 23:00 07:00 Intake Total 720 ml 800 ml Balance 720 ml 800 ml Medications Medications Current Medications Ondansetron HCl (Zofran Tab) 4 mg Q6H PRN PO NAUSEA AND/OR VOMITING; Start 12/01 at 06:00 Metoclopramide HCl (Reglan) 10 mg Q6H PRN IV NAUSEA AND/OR VOMITING; Start 12/01 at 06:00 Famotidine (Pepcid) 20 mg Q12 PO Last administered on 12/09/16 20:31; Admin Dose 20 MG; Start 12/01/16 at 09:00 Gabapentin (Neurontin) 300 mg TID PO Last administered on 12/11/16 20:06; Admin Dose 300 MG; Start 12/01/16 at 09:00 Lactulose (Enulose) 10 gm BID PO Last administered on 12/11/16 20:06; Admin Dose 10 GM; Start 12/01/16 at 09:00 Thiamine HCl (Vitamin B1) 100 mg DAILY PO Last administered on 12/04/16 09:20; Admin Dose 100 MG; Start 12/01/16 at 09:00 Tramadol HCl (Ultram) 25 mg QID PRN PO PAIN Last administered on 12/11/16 00: 01; Admin Dose 25 MG; Start 12/02/16 at 18:00 Olanzapine (Zyprexa) 5 mg Q12H PRN PO for anxiety Last administered on 01:40; Admin Dose 5 MG; Start 12/03/16 at 19:00 SHAHRIAR BAEZ MD Dec 11, 2016 22:06
[2016-12-12] MEDS: ALBUTEROL HFA 8 GM INHALER INH SCH ×6 (00:02→20:32)
[2016-12-12] MEDS: OLANZAPINE 5 MG TAB PO PRN (00:44)
[2016-12-12] MEDS: traMADol 50 MG TAB PO PRN ×2 (05:21→20:31)
[2016-12-12 07:28] VITALS: BP 139/66; RESP 18
[2016-12-12] MEDS: FAMOTIDINE 20 MG TAB PO SCH ×2 (09:00→20:32)
[2016-12-12] MEDS: LACTULOSE 30ML CUP PO SCH ×2 (09:00→20:31)
[2016-12-12] MEDS: GABAPENTIN 300 MG CAP PO SCH ×3 (09:00→20:31)
[2016-12-12] MEDS: THIAMINE 100 MG TAB PO SCH (09:00)
--- NOTE | 2016-12-12 11:27 | PN ---
Date/Time of Note Date/Time of Note DATE: 12/12/16 TIME: 11:26 Assessment/Plan VTE Prophylaxis VTE Prophylaxis Intervention: SCD's Lines/Catheters IV Catheter Type (from Nrs): Saline Lock Urinary Cath still in place: No Assessment/Plan Assessment/Plan 1. Generalized weakness -cont PT 2. Psychiatric disturbance with history of anxiety -Will need transfer to Psych facility - Continue Zyprexa as per psychiatry - Social service and case management working on placement 3. History of substance abuse including methamphetamine, positive currently. 4. History of alcoholic cirrhosis. 5. History of diabetes mellitus. 6. History of dyslipidemia. 7. Pancytopenia likely 2/2 Liver Dz PPx- SCD's Subjective 24 Hr Interval Summary Free Text/Dictation pt doing ok, did not particiapte in PT, Refused to talk to me Exam/Review of Systems Vital Signs Vitals Vital Signs Date Time Temp Pulse Resp B/P Pulse Ox O2 Delivery O2 Flow Rate FiO2 12/12/16 07:28 98.1 72 18 139/66 97 Intake and Output 12/11/16 12/11/16 12/12/16 15:00 23:00 07:00 Intake Total 800 ml 600 ml Balance 800 ml 600 ml Exam refused physical exam Medications Medications Current Medications Ondansetron HCl (Zofran Tab) 4 mg Q6H PRN PO NAUSEA AND/OR VOMITING; Start 12/01 at 06:00 Metoclopramide HCl (Reglan) 10 mg Q6H PRN IV NAUSEA AND/OR VOMITING; Start 12/01 at 06:00 Famotidine (Pepcid) 20 mg Q12 PO Last administered on 12/09/16 20:31; Admin Dose 20 MG; Start 12/01/16 at 09:00 Gabapentin (Neurontin) 300 mg TID PO Last administered on 12/11/16 20:06; Admin Dose 300 MG; Start 12/01/16 at 09:00 Lactulose (Enulose) 10 gm BID PO Last administered on 12/11/16 20:06; Admin Dose 10 GM; Start 12/01/16 at 09:00 Thiamine HCl (Vitamin B1) 100 mg DAILY PO Last administered on 12/04/16 09:20; Admin Dose 100 MG; Start 12/01/16 at 09:00 Tramadol HCl (Ultram) 25 mg QID PRN PO PAIN Last administered on 12/12/16 05: 21; Admin Dose 25 MG; Start 12/02/16 at 18:00 Olanzapine (Zyprexa) 5 mg Q12H PRN PO for anxiety Last administered on 00:44; Admin Dose 5 MG; Start 12/03/16 at 19:00 SHAHRIAR BAEZ MD Dec 12, 2016 11:27
[2016-12-12 20:00] VITALS: BP 129/71; RESP 18
[2016-12-13] MEDS: ALBUTEROL HFA 8 GM INHALER INH SCH ×6 (01:00→21:00)
[2016-12-13] MEDS: OLANZAPINE 5 MG TAB PO PRN (02:36)
[2016-12-13 07:57] VITALS: BP 107/68; RESP 19
[2016-12-13] MEDS: FAMOTIDINE 20 MG TAB PO SCH ×2 (09:00→21:00)
[2016-12-13] MEDS: THIAMINE 100 MG TAB PO SCH (09:00)
[2016-12-13] MEDS: LACTULOSE 30ML CUP PO SCH ×2 (09:00→21:24)
[2016-12-13] MEDS: GABAPENTIN 300 MG CAP PO SCH ×3 (09:02→21:21)
[2016-12-13] MEDS: traMADol 50 MG TAB PO PRN (09:02)
--- NOTE | 2016-12-13 09:46 | PN ---
Date/Time of Note Date/Time of Note DATE: 12/13/16 TIME: 09:45 Assessment/Plan VTE Prophylaxis VTE Prophylaxis Intervention: SCD's Lines/Catheters IV Catheter Type (from Nrs): Saline Lock Urinary Cath still in place: No Assessment/Plan Assessment/Plan 1. Generalized weakness -cont PT 2. Psychiatric disturbance with history of anxiety - Continue Zyprexa as per psychiatry - Social service and case management working on placement 3. History of substance abuse including methamphetamine, positive currently. 4. History of alcoholic cirrhosis. 5. History of diabetes mellitus. 6. History of dyslipidemia. 7. Pancytopenia likely 2/2 Liver Dz PPx- SCD's Subjective 24 Hr Interval Summary Free Text/Dictation c/o pain in back but did not provide any detail Exam/Review of Systems Vital Signs Vitals Vital Signs Date Time Temp Pulse Resp B/P Pulse Ox O2 Delivery O2 Flow Rate FiO2 12/13/16 07:57 98.1 62 19 107/68 92 Intake and Output 12/12/16 12/12/16 12/13/16 15:00 23:00 07:00 Intake Total 1200 ml 680 ml Balance 1200 ml 680 ml Exam Constitutional: alert Psych: confusion Respiratory: clear to auscultation Cardiovascular: regular rate and rhythm Gastrointestinal: soft, No distended Musculoskeletal: nl extremities to inspection Medications Medications Current Medications Ondansetron HCl (Zofran Tab) 4 mg Q6H PRN PO NAUSEA AND/OR VOMITING; Start 12/01 at 06:00 Metoclopramide HCl (Reglan) 10 mg Q6H PRN IV NAUSEA AND/OR VOMITING; Start 12/01 at 06:00 Famotidine (Pepcid) 20 mg Q12 PO Last administered on 12/09/16 20:31; Admin Dose 20 MG; Start 12/01/16 at 09:00 Gabapentin (Neurontin) 300 mg TID PO Last administered on 12/13/16 09:02; Admin Dose 300 MG; Start 12/01/16 at 09:00 Lactulose (Enulose) 10 gm BID PO Last administered on 12/12/16 20:31; Admin Dose 10 GM; Start 12/01/16 at 09:00 Thiamine HCl (Vitamin B1) 100 mg DAILY PO Last administered on 12/04/16 09:20; Admin Dose 100 MG; Start 12/01/16 at 09:00 Tramadol HCl (Ultram) 25 mg QID PRN PO PAIN Last administered on 12/13/16 09: 02; Admin Dose 25 MG; Start 12/02/16 at 18:00 Olanzapine (Zyprexa) 5 mg Q12H PRN PO for anxiety Last administered on 02:36; Admin Dose 5 MG; Start 12/03/16 at 19:00 SHAHRIAR BAEZ MD Dec 13, 2016 09:46
[2016-12-13 20:00] VITALS: BP 137/84; RESP 20
[2016-12-14] MEDS: ALBUTEROL HFA 8 GM INHALER INH SCH ×3 (01:00→21:00)
[2016-12-14] MEDS: OLANZAPINE 5 MG TAB PO PRN ×2 (02:02→19:06)
[2016-12-14] MEDS: traMADol 50 MG TAB PO PRN ×3 (04:45→19:03)
[2016-12-14 08:31] VITALS: BP 125/74; RESP 16
[2016-12-14] MEDS: THIAMINE 100 MG TAB PO SCH ×2 (09:00→10:15)
[2016-12-14] MEDS: FAMOTIDINE 20 MG TAB PO SCH ×3 (09:00→21:00)
[2016-12-14] MEDS: GABAPENTIN 300 MG CAP PO SCH ×3 (10:15→21:00)
[2016-12-14] MEDS: LACTULOSE 30ML CUP PO SCH ×2 (10:15→21:00)
--- NOTE | 2016-12-14 10:18 | PN ---
Date/Time of Note Date/Time of Note DATE: 12/14/16 TIME: :17 Assessment/Plan VTE Prophylaxis VTE Prophylaxis Intervention: SCD's Lines/Catheters IV Catheter Type (from Nrs): Saline Lock Urinary Cath still in place: No Assessment/Plan Assessment/Plan 1. Generalized weakness -cont PT 2. Psychiatric disturbance with history of anxiety - Continue Zyprexa as per psychiatry - Social service and case management working on placement 3. History of substance abuse including methamphetamine, positive currently. 4. History of alcoholic cirrhosis. 5. History of diabetes mellitus. 6. History of dyslipidemia. 7. Pancytopenia likely 2/2 Liver Dz PPx- SCD's Subjective 24 Hr Interval Summary Free Text/Dictation pt more calm today, BP stable Exam/Review of Systems Vital Signs Vitals Vital Signs Date Time Temp Pulse Resp B/P Pulse Ox O2 Delivery O2 Flow Rate FiO2 12/14/16 08:31 98.4 78 16 125/74 92 Intake and Output 12/13/16 12/13/16 12/14/16 15:00 23:00 07:00 Intake Total 900 ml 900 ml Balance 900 ml 900 ml Exam Constitutional: alert Psych: confusion Respiratory: clear to auscultation Cardiovascular: regular rate and rhythm Gastrointestinal: soft, No distended Musculoskeletal: nl extremities to inspection Results Results 24 hrs Laboratory Tests Test 12/13/16 10:40 Lab Scanned Report REFERENCE LAB Medications Medications Current Medications Ondansetron HCl (Zofran Tab) 4 mg Q6H PRN PO NAUSEA AND/OR VOMITING; Start 12/01 at 06:00 Metoclopramide HCl (Reglan) 10 mg Q6H PRN IV NAUSEA AND/OR VOMITING; Start 12/01 at 06:00 Famotidine (Pepcid) 20 mg Q12 PO Last administered on 12/14/16 10:15; Admin Dose 20 MG; Start 12/01/16 at 09:00 Gabapentin (Neurontin) 300 mg TID PO Last administered on 12/14/16 10:15; Admin Dose 300 MG; Start 12/01/16 at 09:00 Lactulose (Enulose) 10 gm BID PO Last administered on 12/14/16 10:15; Admin Dose 10 GM; Start 12/01/16 at 09:00 Thiamine HCl (Vitamin B1) 100 mg DAILY PO Last administered on 12/14/16 10:15 ; Admin Dose 100 MG; Start 12/01/16 at 09:00 Tramadol HCl (Ultram) 25 mg QID PRN PO PAIN Last administered on 12/14/16 04: 45; Admin Dose 25 MG; Start 12/02/16 at 18:00 Olanzapine (Zyprexa) 5 mg Q12H PRN PO for anxiety Last administered on 02:02; Admin Dose 5 MG; Start 12/03/16 at 19:00 SHAHRIAR BAEZ MD Dec 14, 2016 10:18
[2016-12-14 11:43] LABS: ADD SCAN DIFF NO
[2016-12-14 11:46] LABS: ABNORMAL IP MESSAGE 1; HEMATOCRIT 33.6 % (37.0-47.0); MEAN CORPUSCULAR HEMOGLOBIN 33.2 pg (29.0-33.0); MEAN CORPUSCULAR HGB CONC 32.7 g/dl (32.0-37.0); MEAN CORPUSCULAR VOLUME 101.5 fl (82.0-101.0); MEAN PLATELET VOLUME 11.1 fl (7.4-10.4); PLATELET COUNT 65 10^3/UL (140-415); RED BLOOD COUNT 3.31 10^6/ul (4.20-5.40); RED CELL DISTRIBUTION WIDTH 15.9 % (11.5-14.5); WHITE BLOOD COUNT 2.5 10^3/ul (4.8-10.8)
[2016-12-14 12:07] LABS: INR 1.65; PROTIME 19.6 Sec (12.2-14.2); PT RATIO 1.5
[2016-12-14 12:08] LABS: PARTIAL THROMBOPLASTIN TIME 39.6 Sec (25.0-35.0)
[2016-12-14 14:57] LABS: BASOPHIL # 0.1 10^3/ul (0.0-0.1); EOSINOPHILS # 0.2 10^3/ul (0.0-0.5); LYMPHOCYTES # 0.6 10^3/ul (0.8-2.9); MONOCYTE # 0.1 10^3/ul (0.3-0.9); NEUTROPHIL # 1.4 10^3/ul (1.6-7.5); PLATELET ESTIMATE PLT APPEAR DECREASED
[2016-12-14] MEDS ORDERED: LIDOCAINE 1% (MPF) 5 ML VIAL ONE (14:57)
--- NOTE | 2016-12-14 15:28 | RADRPT ---
PROCEDURE: Ultrasound guided paracentesis. CLINICAL INDICATION: Ascites and shortness of breath. COMPARISON: No prior studies are available for comparison. TECHNIQUE: The risks, benefits, and alternatives were explained to the patient and/or the patient's family, inc luding but not limited to bleeding, infection, pain, visceral or vascular damage, shock, and . The patient and/or the patient's family understood the risks and the alternatives and wished to pro ceed with the procedure. Informed written consent was obtained. A procedural time out was performed . The patient's name, date of , and procedure to be performed were verified. Utilizing ultrasound guidance, optimal location for entry to the peritoneal cavity was ascertained. The overlying skin was prepped and draped in the usual sterile fashion. Approximately 10 ml of 1% Xylocaine was injected locally for pain control. Using ultrasound guidance, an 8 [place] catheter wa s introduced into the peritoneal cavity in the right lower quadrant without difficulty. FINDINGS: Initial images demonstrate ascites. Approximately 6.3 liters of serous fluid was aspirated and disc arded. The patient tolerated the procedure well without complication. IMPRESSION: 1. Successful ultrasound-guided paracentesis. RPTAT: QQ .Alexander Michelle MD, Date Time Electronically viewed and signed by .Alexander Michelle MD, on 12/14/2016 15:28 .R/
[2016-12-15] MEDS: ALBUTEROL HFA 8 GM INHALER INH SCH ×6 (00:40→21:00)
[2016-12-15] MEDS: traMADol 50 MG TAB PO PRN ×2 (04:59→12:20)
[2016-12-15 07:30] VITALS: BP 121/72; RESP 20
[2016-12-15] MEDS: GABAPENTIN 300 MG CAP PO SCH ×3 (08:28→21:00)
[2016-12-15] MEDS: LACTULOSE 30ML CUP PO SCH ×2 (08:29→21:00)
[2016-12-15] MEDS: FAMOTIDINE 20 MG TAB PO SCH ×2 (08:29→21:00)
[2016-12-15] MEDS: THIAMINE 100 MG TAB PO SCH (08:29)
--- NOTE | 2016-12-15 11:33 | PN ---
Date/Time of Note Date/Time of Note DATE: 12/15/16 TIME: 11:32 Assessment/Plan VTE Prophylaxis VTE Prophylaxis Intervention: SCD's Lines/Catheters IV Catheter Type (from Nrs): Saline Lock Urinary Cath still in place: No Assessment/Plan Assessment/Plan 1. Generalized weakness -cont PT 2. Psychiatric disturbance with history of anxiety - Continue Zyprexa as per psychiatry - Social service and case management working on placement 3. History of substance abuse including methamphetamine, positive currently. 4. History of alcoholic cirrhosis. 5. History of diabetes mellitus. 6. History of dyslipidemia. 7. Pancytopenia likely 2/2 Liver Dz PPx- SCD's Subjective 24 Hr Interval Summary Free Text/Dictation BP stable, afebrile, no chest pain, no SOB Exam/Review of Systems Vital Signs Vitals Vital Signs Date Time Temp Pulse Resp B/P Pulse Ox O2 Delivery O2 Flow Rate FiO2 12/15/16 07:30 98.0 61 20 121/72 98 Intake and Output 12/14/16 12/14/16 12/15/16 15:00 23:00 07:00 Intake Total 1320 ml 400 ml Balance 1320 ml 400 ml Exam Constitutional: alert Psych: confusion Respiratory: clear to auscultation Cardiovascular: regular rate and rhythm Gastrointestinal: soft, No distended Musculoskeletal: nl extremities to inspection Results Result Diagram: 12/14/16 1113 Medications Medications Current Medications Ondansetron HCl (Zofran Tab) 4 mg Q6H PRN PO NAUSEA AND/OR VOMITING; Start 12/01 at 06:00 Metoclopramide HCl (Reglan) 10 mg Q6H PRN IV NAUSEA AND/OR VOMITING; Start 12/01 at 06:00 Famotidine (Pepcid) 20 mg Q12 PO Last administered on 12/09/16 20:31; Admin Dose 20 MG; Start 12/01/16 at 09:00 Gabapentin (Neurontin) 300 mg TID PO Last administered on 12/15/16 08:28; Admin Dose 300 MG; Start 12/01/16 at 09:00 Lactulose (Enulose) 10 gm BID PO Last administered on 12/14/16 10:15; Admin Dose 10 GM; Start 12/01/16 at 09:00 Thiamine HCl (Vitamin B1) 100 mg DAILY PO Last administered on 12/04/16 09:20; Admin Dose 100 MG; Start 12/01/16 at 09:00 Tramadol HCl (Ultram) 25 mg QID PRN PO PAIN Last administered on 12/15/16 04: 59; Admin Dose 25 MG; Start 12/02/16 at 18:00 Olanzapine (Zyprexa) 5 mg Q12H PRN PO for anxiety Last administered on 19:06; Admin Dose 5 MG; Start 12/03/16 at 19:00 SHAHRIAR BAEZ MD Dec 15, 2016 11:33
[2016-12-15 19:56] VITALS: BP 137/70; RESP 20
[2016-12-16] MEDS: ALBUTEROL HFA 8 GM INHALER INH SCH ×6 (01:00→21:00)
[2016-12-16] MEDS: traMADol 50 MG TAB PO PRN ×3 (03:09→15:17)
[2016-12-16 07:56] VITALS: BP 129/65; RESP 20
[2016-12-16] MEDS: GABAPENTIN 300 MG CAP PO SCH ×3 (09:00→15:26)
[2016-12-16] MEDS: THIAMINE 100 MG TAB PO SCH (09:00)
[2016-12-16] MEDS: FAMOTIDINE 20 MG TAB PO SCH ×2 (09:00→21:00)
[2016-12-16] MEDS: LACTULOSE 30ML CUP PO SCH ×2 (09:00→09:09)
--- NOTE | 2016-12-16 13:18 | RADRPT ---
PROCEDURE: XR Chest. CLINICAL INDICATION: Shortness of breath TECHNIQUE: Single frontal view of the chest was obtained COMPARISON: 06/09/2014 FINDINGS: The heart and mediastinum are within normal limits. There is a right lower lobe infiltrate and moderate right pleural effusion. There is no pneumothorax. RPTAT: AA IMPRESSION: Right lower lobe infiltrate and moderate right pleural effusion. .Brendon Olivas MD, MD Date Time Electronically viewed and signed by .Brendon Olivas MD, MD on 12/16/2016 13:18 .S/
--- NOTE | 2016-12-16 13:38 | PN ---
Date/Time of Note Date/Time of Note DATE: 12/16/16 TIME: 13:38 Assessment/Plan VTE Prophylaxis VTE Prophylaxis Intervention: SCD's Lines/Catheters IV Catheter Type (from Nrs): Saline Lock Urinary Cath still in place: No Assessment/Plan Assessment/Plan 1. Generalized weakness -cont PT 2. Psychiatric disturbance with history of anxiety - Continue Zyprexa as per psychiatry - Social service and case management working on placement 3. History of substance abuse including methamphetamine, positive currently. 4. History of alcoholic cirrhosis. 5. History of diabetes mellitus. 6. History of dyslipidemia. 7. Pancytopenia likely 2/2 Liver Dz PPx- SCD's Subjective 24 Hr Interval Summary Free Text/Dictation c/o SOB Exam/Review of Systems Vital Signs Vitals Vital Signs Date Time Temp Pulse Resp B/P Pulse Ox O2 Delivery O2 Flow Rate FiO2 12/16/16 07:56 98.0 82 20 129/65 98 Intake and Output 12/15/16 12/15/16 12/16/16 14:59 22:59 06:59 Intake Total 1080 ml 360 ml Balance 1080 ml 360 ml Exam Constitutional: alert Psych: confusion Respiratory: clear to auscultation Cardiovascular: regular rate and rhythm Gastrointestinal: soft, No distended Musculoskeletal: nl extremities to inspection Results Result Diagram: 12/14/16 1113 Medications Medications Current Medications Ondansetron HCl (Zofran Tab) 4 mg Q6H PRN PO NAUSEA AND/OR VOMITING; Start 12/01 at 06:00 Metoclopramide HCl (Reglan) 10 mg Q6H PRN IV NAUSEA AND/OR VOMITING; Start 12/01 at 06:00 Famotidine (Pepcid) 20 mg Q12 PO Last administered on 12/09/16 20:31; Admin Dose 20 MG; Start 12/01/16 at 09:00 Gabapentin (Neurontin) 300 mg TID PO Last administered on 12/16/16 09:09; Admin Dose 300 MG; Start 12/01/16 at 09:00 Lactulose (Enulose) 10 gm BID PO Last administered on 12/16/16 09:09; Admin Dose 10 GM; Start 12/01/16 at 09:00 Thiamine HCl (Vitamin B1) 100 mg DAILY PO Last administered on 12/04/16 09:20; Admin Dose 100 MG; Start 12/01/16 at 09:00 Tramadol HCl (Ultram) 25 mg QID PRN PO PAIN Last administered on 12/16/16 09: 12; Admin Dose 25 MG; Start 12/02/16 at 18:00 Olanzapine (Zyprexa) 5 mg Q12H PRN PO for anxiety Last administered on 19:06; Admin Dose 5 MG; Start 12/03/16 at 19:00 SHAHRIAR BAEZ MD Dec 16, 2016 13:38
[2016-12-16] MEDS: LEVOFLOXACIN 500 MG TAB PO SCH (15:26)
[2016-12-16 20:05] VITALS: BP 148/60; RESP 20
[2016-12-17] MEDS: ALBUTEROL HFA 8 GM INHALER INH SCH ×6 (01:00→21:00)
[2016-12-17] MEDS: traMADol 50 MG TAB PO PRN ×3 (04:16→17:22)
[2016-12-17] MEDS: OLANZAPINE 5 MG TAB PO PRN (04:24)
[2016-12-17] MEDS: LEVOFLOXACIN 500 MG TAB PO SCH (05:58)
[2016-12-17 09:00] VITALS: BP 125/64; RESP 18
[2016-12-17] MEDS: THIAMINE 100 MG TAB PO SCH (09:08)
[2016-12-17] MEDS: GABAPENTIN 300 MG CAP PO SCH ×3 (09:08→21:00)
[2016-12-17] MEDS: FAMOTIDINE 20 MG TAB PO SCH ×2 (09:08→21:00)
[2016-12-17] MEDS: LACTULOSE 30ML CUP PO SCH ×2 (09:08→21:00)
--- NOTE | 2016-12-17 10:56 | PN ---
Date/Time of Note Date/Time of Note DATE: 12/17/16 TIME: 10:55 Assessment/Plan VTE Prophylaxis VTE Prophylaxis Intervention: SCD's Lines/Catheters IV Catheter Type (from Nrs): Saline Lock Urinary Cath still in place: No Assessment/Plan Assessment/Plan 1. Generalized weakness -cont PT 2. Psychiatric disturbance with history of anxiety - Continue Zyprexa as per psychiatry - Social service and case management working on placement 3. History of substance abuse including methamphetamine, positive currently. 4. History of alcoholic cirrhosis. 5. History of diabetes mellitus. 6. History of dyslipidemia. 7. Pancytopenia likely 2/2 Liver Dz PPx- SCD's Awaiting Placement Subjective 24 Hr Interval Summary Free Text/Dictation no acute events, BP stable, afebrile Exam/Review of Systems Vital Signs Vitals Vital Signs Date Time Temp Pulse Resp B/P Pulse Ox O2 Delivery O2 Flow Rate FiO2 12/17/16 09:00 99.2 18 18 125/64 98 Intake and Output 12/16/16 12/16/16 12/17/16 15:00 23:00 07:00 Intake Total 1420 ml 360 ml Balance 1420 ml 360 ml Exam Constitutional: alert Psych: confusion Respiratory: clear to auscultation Cardiovascular: regular rate and rhythm Gastrointestinal: soft, No distended Musculoskeletal: nl extremities to inspection Results Result Diagram: 12/14/16 1113 Medications Medications Current Medications Ondansetron HCl (Zofran Tab) 4 mg Q6H PRN PO NAUSEA AND/OR VOMITING; Start 12/01 at 06:00 Metoclopramide HCl (Reglan) 10 mg Q6H PRN IV NAUSEA AND/OR VOMITING; Start 12/01 at 06:00 Famotidine (Pepcid) 20 mg Q12 PO Last administered on 12/17/16 09:08; Admin Dose 20 MG; Start 12/01/16 at 09:00 Gabapentin (Neurontin) 300 mg TID PO Last administered on 12/17/16 09:08; Admin Dose 300 MG; Start 12/01/16 at 09:00 Lactulose (Enulose) 10 gm BID PO Last administered on 12/17/16 09:08; Admin Dose 10 GM; Start 12/01/16 at 09:00 Thiamine HCl (Vitamin B1) 100 mg DAILY PO Last administered on 12/17/16 09:08 ; Admin Dose 100 MG; Start 12/01/16 at 09:00 Tramadol HCl (Ultram) 25 mg QID PRN PO PAIN Last administered on 12/17/16 04: 16; Admin Dose 25 MG; Start 12/02/16 at 18:00 Olanzapine (Zyprexa) 5 mg Q12H PRN PO for anxiety Last administered on 04:24; Admin Dose 5 MG; Start 12/03/16 at 19:00 Levofloxacin (Levaquin) 500 mg DAILY@06 PO Last administered on 12/17/16 05:58 ; Admin Dose 500 MG; Start 12/16/16 at 15:00 SHAHRIAR BAEZ MD Dec 17, 2016 10:55
[2016-12-17] MEDS ORDERED: traMADol 50 MG TAB PO ONE (20:30)
[2016-12-17] MEDS ORDERED: HYDROmorphONE 1 MG/ML SYG IV STA (20:50)
[2016-12-17 20:55] VITALS: BP 135/73; RESP 20
[2016-12-18] MEDS: ALBUTEROL HFA 8 GM INHALER INH SCH ×6 (01:00→21:00)
[2016-12-18] MEDS: traMADol 50 MG TAB PO PRN ×3 (04:00→19:39)
[2016-12-18] MEDS: LEVOFLOXACIN 500 MG TAB PO SCH (05:45)
[2016-12-18 08:01] VITALS: BP 111/67; RESP 18
[2016-12-18] MEDS: THIAMINE 100 MG TAB PO SCH (09:00)
[2016-12-18] MEDS: FAMOTIDINE 20 MG TAB PO SCH ×2 (09:00→21:05)
[2016-12-18] MEDS: LACTULOSE 30ML CUP PO SCH ×2 (09:03→21:05)
[2016-12-18] MEDS: GABAPENTIN 300 MG CAP PO SCH ×3 (09:03→21:05)
--- NOTE | 2016-12-18 11:20 | PN ---
Date/Time of Note Date/Time of Note DATE: 12/18/16 TIME: 11:19 Assessment/Plan VTE Prophylaxis VTE Prophylaxis Intervention: SCD's Lines/Catheters IV Catheter Type (from [facility]): Saline Lock Urinary Cath still in place: No Assessment/Plan Chief Complaint/Hosp Course 1. Generalized weakness -cont PT 2. Psychiatric disturbance with history of anxiety - Continue Zyprexa as per psychiatry - Social service and case management working on placement 3. History of substance abuse including methamphetamine, positive currently. 4. History of alcoholic cirrhosis s/p paracentesis on 12/14/16 5. History of diabetes mellitus. 6. History of dyslipidemia. 7. Pancytopenia likely 2/2 Liver Dz PPx- SCD's Problems: Subjective 24 Hr Interval Summary Constitutional: no complaints Exam/Review of Systems Vital Signs Vitals Vital Signs Date Time Temp Pulse Resp B/P Pulse Ox O2 Delivery O2 Flow Rate FiO2 12/18/16 08:01 98.5 74 18 111/67 95 Intake and Output 12/17/16 12/17/16 12/18/16 15:00 23:00 07:00 Intake Total 1360 ml 360 ml Output Total 3 ml Balance 1357 ml 360 ml Exam Psych: confusion Respiratory: clear to auscultation Cardiovascular: regular rate and rhythm Gastrointestinal: soft, No distended Musculoskeletal: nl extremities to inspection Results Result Diagram: 12/14/16 1113 Medications Medications Current Medications Ondansetron HCl (Zofran Tab) 4 mg Q6H PRN PO NAUSEA AND/OR VOMITING; Start 12/01 at 06:00 Metoclopramide HCl (Reglan) 10 mg Q6H PRN IV NAUSEA AND/OR VOMITING; Start 12/01 at 06:00 Famotidine (Pepcid) 20 mg Q12 PO Last administered on 12/17/16 09:08; Admin Dose 20 MG; Start 12/01/16 at 09:00 Gabapentin (Neurontin) 300 mg TID PO Last administered on 12/18/16 09:03; Admin Dose 300 MG; Start 12/01/16 at 09:00 Lactulose (Enulose) 10 gm BID PO Last administered on 12/18/16 09:03; Admin Dose 10 GM; Start 12/01/16 at 09:00 Thiamine HCl (Vitamin B1) 100 mg DAILY PO Last administered on 12/17/16 09:08 ; Admin Dose 100 MG; Start 12/01/16 at 09:00 Tramadol HCl (Ultram) 25 mg QID PRN PO PAIN Last administered on 12/18/16 04: 00; Admin Dose 25 MG; Start 12/02/16 at 18:00 Olanzapine (Zyprexa) 5 mg Q12H PRN PO for anxiety Last administered on 04:24; Admin Dose 5 MG; Start 12/03/16 at 19:00 Levofloxacin (Levaquin) 500 mg DAILY@06 PO Last administered on 12/18/16 05:45 ; Admin Dose 500 MG; Start 12/16/16 at 15:00 JARROD MARIA Dec 18, 2016 11:20
[2016-12-18] MEDS: OLANZAPINE 5 MG TAB PO PRN (13:14)
[2016-12-18] MEDS: hydrOXYzine HCL 25 MG TAB GTB PRN (16:55)
[2016-12-18 19:57] VITALS: BP 118/68; RESP 20
[2016-12-19] MEDS: ALBUTEROL HFA 8 GM INHALER INH SCH ×6 (01:00→20:23)
[2016-12-19] MEDS: LEVOFLOXACIN 500 MG TAB PO SCH (06:28)
[2016-12-19 07:58] VITALS: BP 117/62; RESP 18
[2016-12-19] MEDS: THIAMINE 100 MG TAB PO SCH (09:00)
[2016-12-19] MEDS: FAMOTIDINE 20 MG TAB PO SCH ×2 (09:00→20:25)
[2016-12-19] MEDS: LACTULOSE 30ML CUP PO SCH ×2 (10:25→20:22)
[2016-12-19] MEDS: GABAPENTIN 300 MG CAP PO SCH ×3 (10:26→20:22)
[2016-12-19] MEDS: traMADol 50 MG TAB PO PRN ×2 (13:25→18:30)
[2016-12-19] MEDS ORDERED: GABAPENTIN 100 MG CAP PO SCH (14:00)
--- NOTE | 2016-12-19 18:02 | PN ---
Date/Time of Note Date/Time of Note DATE: 12/19/16 TIME: 18:01 Assessment/Plan VTE Prophylaxis VTE Prophylaxis Intervention: SCD's Lines/Catheters IV Catheter Type (from Nrs): NO NO SALINE LOCK Urinary Cath still in place: No Assessment/Plan Chief Complaint/Hosp Course 1. Generalized weakness -cont PT 2. Psychiatric disturbance with history of anxiety - Continue Zyprexa as per psychiatry - Social service and case management working on placement 3. History of substance abuse including methamphetamine, positive currently. 4. History of alcoholic cirrhosis s/p paracentesis on 12/14/16 -pt needs a repeat Paracentesis 5. History of diabetes mellitus. 6. History of dyslipidemia. 7. Pancytopenia likely 2/2 Liver Dz PPx- SCD's Problems: Subjective 24 Hr Interval Summary Constitutional: no complaints Exam/Review of Systems Vital Signs Vitals Vital Signs Date Time Temp Pulse Resp B/P Pulse Ox O2 Delivery O2 Flow Rate FiO2 12/19/16 07:58 98.2 72 18 117/62 93 Intake and Output 12/18/16 12/18/16 12/19/16 15:00 23:00 07:00 Intake Total 2300 ml 1200 ml Output Total 1450 ml Balance 850 ml 1200 ml Exam Constitutional: alert Respiratory: clear to auscultation Cardiovascular: regular rate and rhythm Gastrointestinal: soft, No distended Musculoskeletal: nl extremities to inspection Medications Medications Current Medications Ondansetron HCl (Zofran Tab) 4 mg Q6H PRN PO NAUSEA AND/OR VOMITING; Start 12/01 at 06:00 Metoclopramide HCl (Reglan) 10 mg Q6H PRN IV NAUSEA AND/OR VOMITING; Start 12/01 at 06:00 Famotidine (Pepcid) 20 mg Q12 PO Last administered on 12/18/16 21:05; Admin Dose 20 MG; Start 12/01/16 at 09:00 Gabapentin (Neurontin) 300 mg TID PO Last administered on 12/19/16 10:26; Admin Dose 300 MG; Start 12/01/16 at 09:00 Lactulose (Enulose) 10 gm BID PO Last administered on 12/19/16 10:25; Admin Dose 10 GM; Start 12/01/16 at 09:00 Thiamine HCl (Vitamin B1) 100 mg DAILY PO Last administered on 12/17/16 09:08 ; Admin Dose 100 MG; Start 12/01/16 at 09:00 Olanzapine (Zyprexa) 5 mg Q12H PRN PO for anxiety Last administered on 13:14; Admin Dose 5 MG; Start 12/03/16 at 19:00 Levofloxacin (Levaquin) 500 mg DAILY@06 PO Last administered on 12/19/16 06:28 ; Admin Dose 500 MG; Start 12/16/16 at 15:00 Tramadol HCl (Ultram) 25 mg Q6H PRN PO PAIN Last administered on 12/19/16 13: 25; Admin Dose 25 MG; Start 12/18/16 at 18:00 Hydroxyzine HCl (Atarax) 25 mg Q6H PRN GTB ITCHING Last administered on 16:55; Admin Dose 25 MG; Start 12/18/16 at 16:30 JARROD MARIA Dec 19, 2016 18:02
[2016-12-19 20:22] VITALS: BP 128/79; RESP 18
[2016-12-20] MEDS: ALBUTEROL HFA 8 GM INHALER INH SCH ×6 (01:00→22:25)
[2016-12-20] MEDS: LEVOFLOXACIN 500 MG TAB PO SCH (05:25)
[2016-12-20] MEDS: traMADol 50 MG TAB PO PRN ×3 (05:25→22:24)
[2016-12-20 05:33] LABS: ADD SCAN DIFF NO
[2016-12-20 05:37] LABS: ABNORMAL IP MESSAGE 1; BASOPHILS % 1.2 % (0.0-2.0); EOSINOPHILS # 0.2 10^3/ul (0.0-0.5); HEMATOCRIT 34.1 % (37.0-47.0); HEMOGLOBIN 11.5 g/dl (12.0-16.0); LYMPHOCYTES # 0.6 10^3/ul (0.8-2.9); MEAN CORPUSCULAR HEMOGLOBIN 33.8 pg (29.0-33.0); MEAN CORPUSCULAR HGB CONC 33.7 g/dl (32.0-37.0); MEAN CORPUSCULAR VOLUME 100.3 fl (82.0-101.0); MEAN PLATELET VOLUME 11.1 fl (7.4-10.4); MONOCYTE # 0.3 10^3/ul (0.3-0.9); MONOCYTES % 10.2 % (0.0-11.0); NEUTROPHIL # 1.3 10^3/ul (1.6-7.5); NEUTROPHILS % 54.2 % (39.0-77.0); PLATELET COUNT 76 10^3/UL (140-415); RED CELL DISTRIBUTION WIDTH 14.8 % (11.5-14.5); WHITE BLOOD COUNT 2.4 10^3/ul (4.8-10.8)
[2016-12-20 05:50] LABS: POTASSIUM 3.5 mmol/L (3.5-5.1)
[2016-12-20 05:52] LABS: CREATININE 0.55 mg/dl (0.44-1.00); INR 1.57; PROTIME 18.9 Sec (12.2-14.2); PT RATIO 1.5
[2016-12-20 05:53] LABS: CALCIUM 7.3 mg/dl (8.4-10.2); MAGNESIUM 1.8 mg/dl (1.7-2.5)
[2016-12-20 08:15] VITALS: BP 126/72; RESP 16
[2016-12-20] MEDS: GABAPENTIN 300 MG CAP PO SCH ×3 (09:00→22:23)
[2016-12-20] MEDS: FAMOTIDINE 20 MG TAB PO SCH ×2 (09:00→22:24)
[2016-12-20] MEDS: LACTULOSE 30ML CUP PO SCH ×2 (09:00→22:23)
[2016-12-20] MEDS: THIAMINE 100 MG TAB PO SCH (09:00)
[2016-12-20] MEDS ORDERED: LIDOCAINE 1% (MPF) 5 ML VIAL ONE (10:50)
--- NOTE | 2016-12-20 11:15 | RADRPT ---
PROCEDURE: US guided paracentesis CLINICAL INDICATION: Ascites TECHNIQUE: Multiple sonographic images were obtained through the patient's abdomen. A site in the patient's RIGHT lower abdomen was selected and marked. The area was prepped and draped in the usual sterile fashion. 1% lidocaine was utilized. A 19-gauge Yueh needle was advanced into the peritonea l space and the introducer was connected to a vacuum drainage bottle. A total of 2800 cc of clear y ellow fluid were drained at the end of the procedure. The patient tolerated the procedure well. The specimen was sent for laboratory evaluation. COMPARISON: None FINDINGS: Ascites. RPTAT: AA IMPRESSION: Successful ultrasound-guided paracentesis. Physician Luis Date Time Electronically viewed and signed by Physician Luis on 12/20/2016 11:15 /
--- NOTE | 2016-12-20 14:21 | PN ---
Date/Time of Note Date/Time of Note DATE: 12/20/16 TIME: 14:19 Assessment/Plan VTE Prophylaxis VTE Prophylaxis Intervention: SCD's Lines/Catheters IV Catheter Type (from Nrs): NO NO SALINE LOCK Urinary Cath still in place: No Assessment/Plan Chief Complaint/Hosp Course 1. Generalized weakness -cont PT 2. Psychiatric disturbance with history of anxiety - Continue Zyprexa as per psychiatry - Social service and case management working on placement 3. History of substance abuse including methamphetamine, positive currently. 4. History of alcoholic cirrhosis with ascites -repeat Paracentesis today Start patient on Lasix and Aldactone to attempt to decrease frequency of paracenteses 5. History of diabetes mellitus. 6. History of dyslipidemia. 7. Pancytopenia 2/2 Liver Dz PPx- SCD's Problems: Subjective 24 Hr Interval Summary Gastrointestinal: pain Exam/Review of Systems Vital Signs Vitals Vital Signs Date Time Temp Pulse Resp B/P Pulse Ox O2 Delivery O2 Flow Rate FiO2 12/20/16 08:15 99.0 78 16 126/72 98 Intake and Output 12/19/16 12/19/16 12/20/16 15:00 23:00 07:00 Intake Total 108 ml 560 ml Output Total 300 ml Balance -192 ml 560 ml Exam Constitutional: alert Respiratory: clear to auscultation Cardiovascular: regular rate and rhythm Gastrointestinal: distended, soft Musculoskeletal: nl extremities to inspection Results Result Diagram: 12/20/16 0500 12/20/16 0500 Results 24 hrs Laboratory Tests Test 12/20/16 05:00 White Blood Count 2.4 L Red Blood Count 3.40 L Hemoglobin 11.5 L Hematocrit 34.1 L Mean Corpuscular Volume 100.3 Mean Corpuscular Hemoglobin 33.8 H Mean Corpuscular Hemoglobin Concent 33.7 Red Cell Distribution Width 14.8 H Platelet Count 76 L Mean Platelet Volume 11.1 H Neutrophils % 54.2 Lymphocytes % 25.0 Monocytes % 10.2 Eosinophils % 9.0 H Basophils % 1.2 Nucleated Red Blood Cells % 0.0 Neutrophils # 1.3 L Lymphocytes # 0.6 L Monocytes # 0.3 Eosinophils # 0.2 Basophils # 0.0 Nucleated Red Blood Cells # 0.0 Prothrombin Time 18.9 H Prothrombin Time Ratio 1.5 INR International Normalized Ratio 1.57 Sodium Level 135 Potassium Level 3.5 Chloride Level 102 Carbon Dioxide Level 28 Anion Gap 9 Blood Urea Nitrogen 14 Creatinine 0.55 Glucose Level 87 Calcium Level 7.3 L Magnesium Level 1.8 Medications Medications Current Medications Ondansetron HCl (Zofran Tab) 4 mg Q6H PRN PO NAUSEA AND/OR VOMITING; Start 12/01 at 06:00 Metoclopramide HCl (Reglan) 10 mg Q6H PRN IV NAUSEA AND/OR VOMITING; Start 12/01 at 06:00 Famotidine (Pepcid) 20 mg Q12 PO Last administered on 12/18/16 21:05; Admin Dose 20 MG; Start 12/01/16 at 09:00 Gabapentin (Neurontin) 300 mg TID PO Last administered on 12/20/16 12:52; Admin Dose 300 MG; Start 12/01/16 at 09:00 Lactulose (Enulose) 10 gm BID PO Last administered on 12/19/16 20:22; Admin Dose 10 GM; Start 12/01/16 at 09:00 Thiamine HCl (Vitamin B1) 100 mg DAILY PO Last administered on 12/17/16 09:08 ; Admin Dose 100 MG; Start 12/01/16 at 09:00 Olanzapine (Zyprexa) 5 mg Q12H PRN PO for anxiety Last administered on 13:14; Admin Dose 5 MG; Start 12/03/16 at 19:00 Levofloxacin (Levaquin) 500 mg DAILY@06 PO Last administered on 12/20/16 05:25 ; Admin Dose 500 MG; Start 12/16/16 at 15:00 Tramadol HCl (Ultram) 25 mg Q6H PRN PO PAIN Last administered on 12/20/16 12: 58; Admin Dose 25 MG; Start 12/18/16 at 18:00 Hydroxyzine HCl (Atarax) 25 mg Q6H PRN GTB ITCHING Last administered on 16:55; Admin Dose 25 MG; Start 12/18/16 at 16:30 JARROD MARIA Dec 20, 2016 14:21
[2016-12-20] MEDS: FUROSEMIDE 20 MG TAB PO SCH (17:59)
[2016-12-20] MEDS: SPIRONOLACTONE 50 MG TAB PO SCH (17:59)
[2016-12-20] MEDS: OLANZAPINE 5 MG TAB PO PRN (18:00)
[2016-12-20 20:00] VITALS: BP 119/60; RESP 20
[2016-12-21] MEDS: ALBUTEROL HFA 8 GM INHALER INH SCH ×6 (01:00→20:29)
[2016-12-21] MEDS: LEVOFLOXACIN 500 MG TAB PO SCH (06:30)
[2016-12-21] MEDS: SPIRONOLACTONE 50 MG TAB PO SCH ×2 (06:32→18:02)
[2016-12-21] MEDS: FUROSEMIDE 20 MG TAB PO SCH ×2 (06:32→18:02)
[2016-12-21 07:50] VITALS: BP 126/65; RESP 16
[2016-12-21] MEDS: THIAMINE 100 MG TAB PO SCH (09:00)
[2016-12-21] MEDS: FAMOTIDINE 20 MG TAB PO SCH ×2 (09:00→20:30)
[2016-12-21] MEDS: GABAPENTIN 300 MG CAP PO SCH ×3 (09:17→20:30)
[2016-12-21] MEDS: LACTULOSE 30ML CUP PO SCH ×2 (09:17→20:28)
[2016-12-21] MEDS: traMADol 50 MG TAB PO PRN ×2 (09:33→16:39)
--- NOTE | 2016-12-21 18:03 | PN ---
Date/Time of Note Date/Time of Note DATE: 12/21/16 TIME: 18:03 Assessment/Plan VTE Prophylaxis VTE Prophylaxis Intervention: SCD's Lines/Catheters IV Catheter Type (from Nrs): NO NO SALINE LOCK Urinary Cath still in place: No Assessment/Plan Chief Complaint/Hosp Course 1. Generalized weakness -cont PT 2. Psychiatric disturbance with history of anxiety - Continue Zyprexa as per psychiatry - Social service and case management working on placement 3. History of substance abuse including methamphetamine, positive currently. 4. History of alcoholic cirrhosis with ascites -s/p Paracentesis Cont Lasix and Aldactone to attempt to decrease frequency of paracenteses 5. History of diabetes mellitus. 6. History of dyslipidemia. 7. Pancytopenia 2/2 Liver Dz PPx- SCD's Problems: Subjective 24 Hr Interval Summary Constitutional: no complaints Exam/Review of Systems Vital Signs Vitals Vital Signs Date Time Temp Pulse Resp B/P Pulse Ox O2 Delivery O2 Flow Rate FiO2 12/21/16 07:50 97.5 73 16 126/65 97 Intake and Output 12/20/16 12/20/16 12/21/16 15:00 23:00 07:00 Intake Total 2480 ml 750 ml Output Total 550 ml Balance 1930 ml 750 ml Exam Constitutional: alert Respiratory: clear to auscultation Cardiovascular: regular rate and rhythm Gastrointestinal: distended, soft Musculoskeletal: nl extremities to inspection Results Result Diagram: 12/20/16 0500 12/20/16 0500 Medications Medications Current Medications Ondansetron HCl (Zofran Tab) 4 mg Q6H PRN PO NAUSEA AND/OR VOMITING; Start 12/01 at 06:00 Metoclopramide HCl (Reglan) 10 mg Q6H PRN IV NAUSEA AND/OR VOMITING; Start 12/01 at 06:00 Famotidine (Pepcid) 20 mg Q12 PO Last administered on 12/18/16 21:05; Admin Dose 20 MG; Start 12/01/16 at 09:00 Gabapentin (Neurontin) 300 mg TID PO Last administered on 12/21/16 14:21; Admin Dose 300 MG; Start 12/01/16 at 09:00 Lactulose (Enulose) 10 gm BID PO Last administered on 12/21/16 09:17; Admin Dose 10 GM; Start 12/01/16 at 09:00 Thiamine HCl (Vitamin B1) 100 mg DAILY PO Last administered on 12/17/16 09:08 ; Admin Dose 100 MG; Start 12/01/16 at 09:00 Olanzapine (Zyprexa) 5 mg Q12H PRN PO for anxiety Last administered on 18:00; Admin Dose 5 MG; Start 12/03/16 at 19:00 Levofloxacin (Levaquin) 500 mg DAILY@06 PO Last administered on 12/21/16 06:30 ; Admin Dose 500 MG; Start 12/16/16 at 15:00 Tramadol HCl (Ultram) 25 mg Q6H PRN PO PAIN Last administered on 12/21/16 16: 39; Admin Dose 25 MG; Start 12/18/16 at 18:00 Hydroxyzine HCl (Atarax) 25 mg Q6H PRN GTB ITCHING Last administered on 16:55; Admin Dose 25 MG; Start 12/18/16 at 16:30 JARROD MARIA Dec 21, 2016 18:03
[2016-12-21 18:04] VITALS: BP 127/77; PULSE 102; RESP 22
[2016-12-21 19:32] VITALS: BP 135/80; RESP 16
[2016-12-21] MEDS: OLANZAPINE 5 MG TAB PO PRN (20:31)
[2016-12-22] MEDS: ALBUTEROL HFA 8 GM INHALER INH SCH ×6 (00:31→21:00)
[2016-12-22] MEDS: LEVOFLOXACIN 500 MG TAB PO SCH (06:20)
[2016-12-22] MEDS: FUROSEMIDE 20 MG TAB PO SCH ×2 (06:20→18:00)
[2016-12-22] MEDS: SPIRONOLACTONE 50 MG TAB PO SCH ×2 (06:20→18:00)
[2016-12-22 06:22] VITALS: BP 122/75; PULSE 80; RESP 22
[2016-12-22 07:35] VITALS: BP 101/68; RESP 20
[2016-12-22] MEDS: THIAMINE 100 MG TAB PO SCH (09:00)
[2016-12-22] MEDS: FAMOTIDINE 20 MG TAB PO SCH ×2 (09:00→21:00)
[2016-12-22] MEDS: GABAPENTIN 300 MG CAP PO SCH ×3 (09:00→16:42)
[2016-12-22] MEDS: LACTULOSE 30ML CUP PO SCH ×2 (09:00→21:33)
--- NOTE | 2016-12-22 16:34 | PN ---
Date/Time of Note Date/Time of Note DATE: 12/22/16 TIME: 16:34 Assessment/Plan VTE Prophylaxis VTE Prophylaxis Intervention: SCD's Lines/Catheters IV Catheter Type (from Nrs): NO NO SALINE LOCK Urinary Cath still in place: No Assessment/Plan Chief Complaint/Hosp Course 1. Generalized weakness -cont PT 2. Psychiatric disturbance with history of anxiety - Continue Zyprexa as per psychiatry - Social service and case management working on placement 3. History of substance abuse including methamphetamine, positive currently. 4. History of alcoholic cirrhosis with ascites -s/p Paracentesis Cont Lasix and Aldactone to attempt to decrease frequency of paracenteses 5. History of diabetes mellitus. 6. History of dyslipidemia. 7. Pancytopenia 2/2 Liver Dz PPx- SCD's Problems: Subjective 24 Hr Interval Summary Gastrointestinal: pain Exam/Review of Systems Vital Signs Vitals Vital Signs Date Time Temp Pulse Resp B/P Pulse Ox O2 Delivery O2 Flow Rate FiO2 12/22/16 07:35 99.0 82 20 101/68 95 12/22/16 06:22 Room Air Intake and Output 12/21/16 12/21/16 12/22/16 15:00 23:00 07:00 Intake Total 2060 ml Output Total 850 ml Balance 1210 ml Exam Constitutional: alert Respiratory: clear to auscultation Cardiovascular: regular rate and rhythm Gastrointestinal: distended, soft Musculoskeletal: nl extremities to inspection Results Result Diagram: 12/20/16 0500 12/20/16 0500 Medications Medications Current Medications Ondansetron HCl (Zofran Tab) 4 mg Q6H PRN PO NAUSEA AND/OR VOMITING; Start 12/01 at 06:00 Metoclopramide HCl (Reglan) 10 mg Q6H PRN IV NAUSEA AND/OR VOMITING; Start 12/01 at 06:00 Famotidine (Pepcid) 20 mg Q12 PO Last administered on 12/21/16 20:30; Admin Dose 20 MG; Start 12/01/16 at 09:00 Gabapentin (Neurontin) 300 mg TID PO Last administered on 12/21/16 20:30; Admin Dose 300 MG; Start 12/01/16 at 09:00 Lactulose (Enulose) 10 gm BID PO Last administered on 12/21/16 20:28; Admin Dose 10 GM; Start 12/01/16 at 09:00 Thiamine HCl (Vitamin B1) 100 mg DAILY PO Last administered on 12/17/16 09:08 ; Admin Dose 100 MG; Start 12/01/16 at 09:00 Olanzapine (Zyprexa) 5 mg Q12H PRN PO for anxiety Last administered on 20:31; Admin Dose 5 MG; Start 12/03/16 at 19:00 Levofloxacin (Levaquin) 500 mg DAILY@06 PO Last administered on 12/22/16 06:20 ; Admin Dose 500 MG; Start 12/16/16 at 15:00 Tramadol HCl (Ultram) 25 mg Q6H PRN PO PAIN Last administered on 12/21/16 16: 39; Admin Dose 25 MG; Start 12/18/16 at 18:00 Hydroxyzine HCl (Atarax) 25 mg Q6H PRN GTB ITCHING Last administered on 16:55; Admin Dose 25 MG; Start 12/18/16 at 16:30 JARROD MARIA Dec 22, 2016 16:34
[2016-12-22] MEDS: traMADol 50 MG TAB PO PRN ×2 (16:43→21:34)
[2016-12-22 19:30] VITALS: BP 130/64; RESP 20
[2016-12-22 20:59] VITALS: BP 130/64; PULSE 85; RESP 22
[2016-12-22] MEDS: OLANZAPINE 5 MG TAB PO PRN (21:51)
[2016-12-23] MEDS: ALBUTEROL HFA 8 GM INHALER INH SCH ×5 (01:00→19:14)
[2016-12-23] MEDS: LEVOFLOXACIN 500 MG TAB PO SCH (05:28)
[2016-12-23] MEDS: traMADol 50 MG TAB PO PRN ×3 (05:29→21:22)
[2016-12-23] MEDS: SPIRONOLACTONE 50 MG TAB PO SCH ×2 (05:29→18:00)
[2016-12-23] MEDS: FUROSEMIDE 20 MG TAB PO SCH (05:29)
[2016-12-23 07:57] VITALS: BP 130/68; RESP 18
[2016-12-23] MEDS: THIAMINE 100 MG TAB PO SCH (10:34)
[2016-12-23] MEDS: LACTULOSE 30ML CUP PO SCH ×2 (10:34→20:25)
[2016-12-23] MEDS: FAMOTIDINE 20 MG TAB PO SCH ×2 (10:35→20:25)
[2016-12-23] MEDS: GABAPENTIN 300 MG CAP PO SCH ×3 (10:35→20:25)
--- NOTE | 2016-12-23 16:39 | PN ---
Date/Time of Note Date/Time of Note DATE: 12/23/16 TIME: 16:37 Assessment/Plan VTE Prophylaxis VTE Prophylaxis Intervention: SCD's Lines/Catheters IV Catheter Type (from [facility]): NO NO SALINE LOCK Urinary Cath still in place: No Assessment/Plan Chief Complaint/Hosp Course 1. Generalized weakness -cont PT 2. Psychiatric disturbance with history of anxiety - Continue Zyprexa as per psychiatry - Social service and case management working on placement 3. History of substance abuse including methamphetamine, positive currently. 4. History of alcoholic cirrhosis with ascites -s/p Paracentesis -Increase dose of Lasix and Aldactone to attempt to decrease frequency of paracenteses 5. History of diabetes mellitus. 6. History of dyslipidemia. 7. Pancytopenia 2/2 Liver Dz PPx- SCD's Problems: Subjective 24 Hr Interval Summary Constitutional: no complaints Exam/Review of Systems Vital Signs Vitals Vital Signs Date Time Temp Pulse Resp B/P Pulse Ox O2 Delivery O2 Flow Rate FiO2 12/23/16 07:57 98.1 72 18 130/68 94 12/22/16 20:59 Room Air Intake and Output 12/22/16 12/22/16 12/23/16 15:00 23:00 07:00 Intake Total 1320 ml 720 ml 840 ml Output Total 800 ml 600 ml Balance 1320 ml -80 ml 240 ml Exam Constitutional: alert Respiratory: clear to auscultation Cardiovascular: regular rate and rhythm Gastrointestinal: distended, soft Musculoskeletal: nl extremities to inspection Results Result Diagram: 12/20/16 0500 12/20/16 0500 Medications Medications Current Medications Ondansetron HCl (Zofran Tab) 4 mg Q6H PRN PO NAUSEA AND/OR VOMITING; Start 12/01 at 06:00 Metoclopramide HCl (Reglan) 10 mg Q6H PRN IV NAUSEA AND/OR VOMITING; Start 12/01 at 06:00 Famotidine (Pepcid) 20 mg Q12 PO Last administered on 12/21/16 20:30; Admin Dose 20 MG; Start 12/01/16 at 09:00 Gabapentin (Neurontin) 300 mg TID PO Last administered on 12/23/16 15:09; Admin Dose 300 MG; Start 12/01/16 at 09:00 Lactulose (Enulose) 10 gm BID PO Last administered on 12/23/16 10:34; Admin Dose 10 GM; Start 12/01/16 at 09:00 Thiamine HCl (Vitamin B1) 100 mg DAILY PO Last administered on 12/23/16 10:34 ; Admin Dose 100 MG; Start 12/01/16 at 09:00 Olanzapine (Zyprexa) 5 mg Q12H PRN PO for anxiety Last administered on 21:51; Admin Dose 5 MG; Start 12/03/16 at 19:00 Tramadol HCl (Ultram) 25 mg Q6H PRN PO PAIN Last administered on 12/23/16 15: 08; Admin Dose 25 MG; Start 12/18/16 at 18:00 Hydroxyzine HCl (Atarax) 25 mg Q6H PRN GTB ITCHING Last administered on 16:55; Admin Dose 25 MG; Start 12/18/16 at 16:30 JARROD MARIA Dec 23, 2016 16:39
[2016-12-23] MEDS: FUROSEMIDE 40 MG TAB PO SCH (18:00)
[2016-12-23 19:19] VITALS: BP 124/72; RESP 18
[2016-12-23] MEDS: OLANZAPINE 5 MG TAB PO PRN (20:26)
[2016-12-24 06:08] VITALS: BP 110/57; PULSE 77; RESP 20
[2016-12-24] MEDS: FUROSEMIDE 40 MG TAB PO SCH ×2 (06:09→18:44)
[2016-12-24] MEDS: SPIRONOLACTONE 50 MG TAB PO SCH ×2 (06:09→18:44)
[2016-12-24 07:26] VITALS: BP 123/68; RESP 18
[2016-12-24] MEDS: FAMOTIDINE 20 MG TAB PO SCH ×2 (09:00→21:00)
[2016-12-24] MEDS: ALBUTEROL HFA 8 GM INHALER INH SCH ×4 (09:00→21:13)
[2016-12-24] MEDS: LACTULOSE 30ML CUP PO SCH ×2 (09:02→21:13)
[2016-12-24] MEDS: THIAMINE 100 MG TAB PO SCH (09:03)
[2016-12-24] MEDS: GABAPENTIN 300 MG CAP PO SCH ×3 (09:03→21:12)
[2016-12-24] MEDS: traMADol 50 MG TAB PO PRN (12:49)
--- NOTE | 2016-12-24 14:56 | PN ---
Date/Time of Note Date/Time of Note DATE: 12/24/16 TIME: 14:53 Assessment/Plan VTE Prophylaxis VTE Prophylaxis Intervention: SCD's Lines/Catheters IV Catheter Type (from Nrs): NO NO SALINE LOCK Urinary Cath still in place: No Assessment/Plan Chief Complaint/Hosp Course 1. Generalized weakness -cont PT 2. Psychiatric disturbance with history of anxiety - Continue Zyprexa as per psychiatry - Social service and case management working on placement 3. History of substance abuse including methamphetamine, positive currently. 4. History of alcoholic cirrhosis with ascites -s/p Paracentesis -Cont Lasix and Aldactone to attempt to decrease frequency of paracenteses 5. History of diabetes mellitus. 6. History of dyslipidemia. 7. Pancytopenia 2/2 Liver Dz PPx- SCD's Problems: Subjective 24 Hr Interval Summary Gastrointestinal: pain Exam/Review of Systems Vital Signs Vitals Vital Signs Date Time Temp Pulse Resp B/P Pulse Ox O2 Delivery O2 Flow Rate FiO2 12/24/16 07:26 98.7 77 18 123/68 93 12/24/16 06:08 Room Air Intake and Output 12/23/16 12/23/16 12/24/16 15:00 23:00 07:00 Intake Total 1460 ml 860 ml Output Total 1300 ml 400 ml Balance 160 ml 460 ml Exam Constitutional: alert Respiratory: clear to auscultation Cardiovascular: regular rate and rhythm Gastrointestinal: distended, soft Musculoskeletal: nl extremities to inspection Results Result Diagram: 12/20/16 0500 12/20/16 0500 Medications Medications Current Medications Ondansetron HCl (Zofran Tab) 4 mg Q6H PRN PO NAUSEA AND/OR VOMITING; Start 12/01 at 06:00 Metoclopramide HCl (Reglan) 10 mg Q6H PRN IV NAUSEA AND/OR VOMITING; Start 12/01 at 06:00 Famotidine (Pepcid) 20 mg Q12 PO Last administered on 12/23/16 20:25; Admin Dose 20 MG; Start 12/01/16 at 09:00 Gabapentin (Neurontin) 300 mg TID PO Last administered on 12/24/16 12:48; Admin Dose 300 MG; Start 12/01/16 at 09:00 Lactulose (Enulose) 10 gm BID PO Last administered on 4/28/17at 09:02; Admin Dose 10 GM; Start 12/01/16 at 09:00 Thiamine HCl (Vitamin B1) 100 mg DAILY PO Last administered on 12/24/16 09:03 ; Admin Dose 100 MG; Start 12/01/16 at 09:00 Olanzapine (Zyprexa) 5 mg Q12H PRN PO for anxiety Last administered on 20:26; Admin Dose 5 MG; Start 12/03/16 at 19:00 Tramadol HCl (Ultram) 25 mg Q6H PRN PO PAIN Last administered on 12/24/16 12: 49; Admin Dose 25 MG; Start 12/18/16 at 18:00 Hydroxyzine HCl (Atarax) 25 mg Q6H PRN GTB ITCHING Last administered on 16:55; Admin Dose 25 MG; Start 12/18/16 at 16:30 JARROD MARIA Dec 24, 2016 14:56
[2016-12-24 19:59] VITALS: BP 113/61; RESP 20
[2016-12-24] MEDS: hydrOXYzine HCL 25 MG TAB GTB PRN (21:13)
[2016-12-25] MEDS: ALBUTEROL HFA 8 GM INHALER INH SCH ×6 (01:00→21:05)
[2016-12-25] MEDS: FUROSEMIDE 40 MG TAB PO SCH ×2 (06:11→18:14)
[2016-12-25] MEDS: SPIRONOLACTONE 50 MG TAB PO SCH ×2 (06:11→18:14)
[2016-12-25] MEDS: traMADol 50 MG TAB PO PRN ×2 (06:15→14:59)
[2016-12-25 07:28] VITALS: BP 117/72; RESP 18
[2016-12-25] MEDS: FAMOTIDINE 20 MG TAB PO SCH ×2 (09:00→21:06)
[2016-12-25] MEDS: THIAMINE 100 MG TAB PO SCH (09:13)
[2016-12-25] MEDS: GABAPENTIN 300 MG CAP PO SCH ×3 (09:13→21:06)
[2016-12-25] MEDS: LACTULOSE 30ML CUP PO SCH ×2 (09:14→21:05)
--- NOTE | 2016-12-25 17:11 | PN ---
Date/Time of Note Date/Time of Note DATE: 12/25/16 TIME: 17:11 Assessment/Plan VTE Prophylaxis VTE Prophylaxis Intervention: SCD's Lines/Catheters IV Catheter Type (from Nrs): NO NO SALINE LOCK Urinary Cath still in place: No Assessment/Plan Chief Complaint/Hosp Course 1. Generalized weakness -cont PT 2. Psychiatric disturbance with history of anxiety - Continue Zyprexa as per psychiatry - Social service and case management working on placement 3. History of substance abuse including methamphetamine, positive currently. 4. History of alcoholic cirrhosis with ascites -s/p Paracentesis -Cont Lasix and Aldactone to attempt to decrease frequency of paracenteses 5. History of diabetes mellitus. 6. History of dyslipidemia. 7. Pancytopenia 2/2 Liver Dz PPx- SCD's Problems: Subjective 24 Hr Interval Summary Constitutional: no complaints Exam/Review of Systems Vital Signs Vitals Vital Signs Date Time Temp Pulse Resp B/P Pulse Ox O2 Delivery O2 Flow Rate FiO2 12/25/16 07:28 98.3 78 18 117/72 94 12/24/16 20:00 Room Air Intake and Output 12/24/16 12/24/16 12/25/16 15:00 23:00 07:00 Intake Total 1020 ml 960 ml Output Total 2050 ml Balance -1030 ml 960 ml Exam Constitutional: alert Respiratory: clear to auscultation Cardiovascular: regular rate and rhythm Gastrointestinal: distended, soft Musculoskeletal: nl extremities to inspection Medications Medications Current Medications Ondansetron HCl (Zofran Tab) 4 mg Q6H PRN PO NAUSEA AND/OR VOMITING; Start 12/01 at 06:00 Metoclopramide HCl (Reglan) 10 mg Q6H PRN IV NAUSEA AND/OR VOMITING; Start 12/01 at 06:00 Famotidine (Pepcid) 20 mg Q12 PO Last administered on 12/23/16 20:25; Admin Dose 20 MG; Start 12/01/16 at 09:00 Gabapentin (Neurontin) 300 mg TID PO Last administered on 12/25/16 13:28; Admin Dose 300 MG; Start 12/01/16 at 09:00 Lactulose (Enulose) 10 gm BID PO Last administered on 12/25/16 09:14; Admin Dose 10 GM; Start 12/01/16 at 09:00 Thiamine HCl (Vitamin B1) 100 mg DAILY PO Last administered on 12/25/16 09:13 ; Admin Dose 100 MG; Start 12/01/16 at 09:00 Olanzapine (Zyprexa) 5 mg Q12H PRN PO for anxiety Last administered on 20:26; Admin Dose 5 MG; Start 12/03/16 at 19:00 Tramadol HCl (Ultram) 25 mg Q6H PRN PO PAIN Last administered on 12/25/16 14: 59; Admin Dose 25 MG; Start 12/18/16 at 18:00 Hydroxyzine HCl (Atarax) 25 mg Q6H PRN GTB ITCHING Last administered on 21:13; Admin Dose 25 MG; Start 12/18/16 at 16:30 JARROD MARIA Dec 25, 2016 17:11
[2016-12-25 19:42] VITALS: BP 119/68; RESP 19
[2016-12-25] MEDS: OLANZAPINE 5 MG TAB PO PRN (23:32)
[2016-12-26] MEDS: ALBUTEROL HFA 8 GM INHALER INH SCH ×6 (01:00→21:00)
[2016-12-26] MEDS: SPIRONOLACTONE 50 MG TAB PO SCH ×2 (05:54→18:03)
[2016-12-26] MEDS: FUROSEMIDE 40 MG TAB PO SCH ×2 (05:54→17:52)
[2016-12-26 07:48] VITALS: BP 118/72; RESP 18
[2016-12-26] MEDS: FAMOTIDINE 20 MG TAB PO SCH ×2 (09:00→21:00)
[2016-12-26] MEDS: THIAMINE 100 MG TAB PO SCH (09:00)
[2016-12-26] MEDS: GABAPENTIN 300 MG CAP PO SCH ×3 (09:19→20:24)
[2016-12-26] MEDS: traMADol 50 MG TAB PO PRN ×2 (09:20→20:25)
[2016-12-26] MEDS: LACTULOSE 30ML CUP PO SCH ×2 (09:20→20:25)
--- NOTE | 2016-12-26 17:49 | PN ---
Date/Time of Note Date/Time of Note DATE: 12/26/16 TIME: 17:47 Assessment/Plan VTE Prophylaxis VTE Prophylaxis Intervention: SCD's Lines/Catheters IV Catheter Type (from Nrs): NO NO SALINE LOCK Urinary Cath still in place: No Assessment/Plan Chief Complaint/Hosp Course 1. Generalized weakness-patient now ambulating -cont PT 2. Psychiatric disturbance with history of anxiety - Continue Zyprexa as per psychiatry - Social service and case management working on placement 3. History of substance abuse including methamphetamine, positive currently. 4. History of alcoholic cirrhosis with ascites -s/p Paracentesis 2 -Cont Lasix and Aldactone to attempt to decrease frequency of paracenteses, increased dose of Aldactone today to 200 mg p.o. twice daily, if BP tolerates this new dose then can increase Lasix to 80 mg p.o. twice daily 5. History of diabetes mellitus. 6. History of dyslipidemia. 7. Pancytopenia 2/2 Liver Dz PPx- SCD's Problems: Subjective 24 Hr Interval Summary Gastrointestinal: pain Exam/Review of Systems Vital Signs Vitals Vital Signs Date Time Temp Pulse Resp B/P Pulse Ox O2 Delivery O2 Flow Rate FiO2 12/26/16 07:48 98.6 78 18 118/72 96 12/24/16 20:00 Room Air Intake and Output 12/25/16 12/25/16 12/26/16 15:00 23:00 07:00 Intake Total 1640 ml 1240 ml Output Total 2200 ml 800 ml Balance -560 ml 440 ml Exam Constitutional: alert Respiratory: clear to auscultation Cardiovascular: regular rate and rhythm Gastrointestinal: soft, No distended Musculoskeletal: nl extremities to inspection Medications Medications Current Medications Ondansetron HCl (Zofran Tab) 4 mg Q6H PRN PO NAUSEA AND/OR VOMITING; Start 12/01 at 06:00 Metoclopramide HCl (Reglan) 10 mg Q6H PRN IV NAUSEA AND/OR VOMITING; Start 12/01 at 06:00 Famotidine (Pepcid) 20 mg Q12 PO Last administered on 12/25/16 21:06; Admin Dose 20 MG; Start 12/01/16 at 09:00 Gabapentin (Neurontin) 300 mg TID PO Last administered on 12/26/16 12:43; Admin Dose 300 MG; Start 12/01/16 at 09:00 Lactulose (Enulose) 10 gm BID PO Last administered on 12/26/16 09:20; Admin Dose 10 GM; Start 12/01/16 at 09:00 Thiamine HCl (Vitamin B1) 100 mg DAILY PO Last administered on 12/25/16 09:13 ; Admin Dose 100 MG; Start 12/01/16 at 09:00 Olanzapine (Zyprexa) 5 mg Q12H PRN PO for anxiety Last administered on 23:32; Admin Dose 5 MG; Start 12/03/16 at 19:00 Tramadol HCl (Ultram) 25 mg Q6H PRN PO PAIN Last administered on 12/26/16 09: 20; Admin Dose 25 MG; Start 12/18/16 at 18:00 Hydroxyzine HCl (Atarax) 25 mg Q6H PRN GTB ITCHING Last administered on 21:13; Admin Dose 25 MG; Start 12/18/16 at 16:30 JARROD MARIA Dec 26, 2016 17:49
[2016-12-26 17:52] VITALS: BP 131/66; PULSE 82
[2016-12-26 19:54] VITALS: BP 115/64; RESP 20
[2016-12-26] MEDS: OLANZAPINE 5 MG TAB PO PRN (20:29)
[2016-12-27] MEDS: ALBUTEROL HFA 8 GM INHALER INH SCH ×6 (01:00→21:54)
[2016-12-27 05:56] LABS: ADD SCAN DIFF NO
[2016-12-27 05:58] LABS: ABNORMAL IP MESSAGE 1; BASOPHIL # 0.1 10^3/ul (0.0-0.1); BASOPHILS % 1.9 % (0.0-2.0); EOSINOPHILS # 0.3 10^3/ul (0.0-0.5); EOSINOPHILS % 9.4 % (0.0-7.0); HEMATOCRIT 34.5 % (37.0-47.0); HEMOGLOBIN 11.3 g/dl (12.0-16.0); LYMPHOCYTES # 0.7 10^3/ul (0.8-2.9); LYMPHOCYTES % 27.4 % (15.0-51.0); MEAN CORPUSCULAR HEMOGLOBIN 32.4 pg (29.0-33.0); MEAN CORPUSCULAR HGB CONC 32.8 g/dl (32.0-37.0); MEAN CORPUSCULAR VOLUME 98.9 fl (82.0-101.0); MEAN PLATELET VOLUME 10.6 fl (7.4-10.4); MONOCYTE # 0.3 10^3/ul (0.3-0.9); MONOCYTES % 10.5 % (0.0-11.0); NEUTROPHIL # 1.3 10^3/ul (1.6-7.5); NEUTROPHILS % 50.4 % (39.0-77.0); PLATELET COUNT 83 10^3/UL (140-415); RED BLOOD COUNT 3.49 10^6/ul (4.20-5.40); RED CELL DISTRIBUTION WIDTH 14.2 % (11.5-14.5); WHITE BLOOD COUNT 2.7 10^3/ul (4.8-10.8)
[2016-12-27] MEDS: SPIRONOLACTONE 50 MG TAB PO SCH ×2 (06:12→17:52)
[2016-12-27] MEDS: FUROSEMIDE 40 MG TAB PO SCH ×2 (06:12→17:54)
[2016-12-27 06:38] LABS: POTASSIUM 3.5 mmol/L (3.5-5.1)
[2016-12-27 06:40] LABS: CREATININE 0.69 mg/dl (0.44-1.00)
[2016-12-27 06:41] LABS: CALCIUM 7.5 mg/dl (8.4-10.2); PHOSPHORUS 4.3 mg/dl (2.5-4.9)
[2016-12-27 06:42] LABS: MAGNESIUM 1.7 mg/dl (1.7-2.5)
[2016-12-27 07:41] VITALS: BP 107/61; RESP 19
[2016-12-27] MEDS: LACTULOSE 30ML CUP PO SCH ×2 (08:16→21:53)
[2016-12-27] MEDS: GABAPENTIN 300 MG CAP PO SCH ×3 (08:17→21:53)
[2016-12-27] MEDS: FAMOTIDINE 20 MG TAB PO SCH ×2 (08:17→21:53)
[2016-12-27] MEDS: THIAMINE 100 MG TAB PO SCH (08:18)
[2016-12-27] MEDS: traMADol 50 MG TAB PO PRN ×2 (08:23→17:53)
[2016-12-27 08:26] LABS: PLATELET ESTIMATE PLT APPEAR DECREASED
--- NOTE | 2016-12-27 12:36 | PN ---
Date/Time of Note Date/Time of Note DATE: 12/27/16 TIME: 12:35 Assessment/Plan VTE Prophylaxis VTE Prophylaxis Intervention: SCD's Lines/Catheters IV C[facility]ter Type (from [facility] NO NO SALINE LOCK Urinary Cath still in place: No Assessment/Plan Assessment/Plan 1. Generalized weakness-patient now ambulating -cont PT 2. Psychiatric disturbance with history of anxiety - Continue Zyprexa as per psychiatry - Social service and case management working on placement 3. History of substance abuse including methamphetamine, positive currently. 4. History of alcoholic cirrhosis with ascites -s/p Paracentesis 2 -Cont Lasix and Aldactone to attempt to decrease frequency of paracenteses, increased dose of Aldactone today to 200 mg p.o. twice daily, if BP tolerates this new dose then can increase Lasix to 80 mg p.o. twice daily 5. History of diabetes mellitus. 6. History of dyslipidemia. 7. Pancytopenia 2/2 Liver Dz PPx- SCD's Subjective 24 Hr Interval Summary Free Text/Dictation c/o diffuse bodyache,Bp stable,a febrile, no fever Exam/Review of Systems Vital Signs Vitals Vital Signs Date Time Temp Pulse Resp B/P Pulse Ox O2 Delivery O2 Flow Rate FiO2 12/27/16 07:41 98.0 72 19 107/61 94 12/24/16 20:00 Room Air Intake and Output 12/26/16 12/26/16 12/27/16 15:00 23:00 07:00 Intake Total 1560 ml 480 ml Output Total 1100 ml 600 ml Balance 460 ml -120 ml Exam Constitutional: alert Respiratory: clear to auscultation Cardiovascular: regular rate and rhythm Gastrointestinal: soft, No distended Musculoskeletal: nl extremities to inspection Results Result Diagram: 12/27/16 0535 12/27/16 0535 Results 24 hrs Laboratory Tests Test 12/27/16 05:35 White Blood Count 2.7 L Red Blood Count 3.49 L Hemoglobin 11.3 L Hematocrit 34.5 L Mean Corpuscular Volume 98.9 Mean Corpuscular Hemoglobin 32.4 Mean Corpuscular Hemoglobin Concent 32.8 Red Cell Distribution Width 14.2 Platelet Count 83 L Mean Platelet Volume 10.6 H Neutrophils % 50.4 Lymphocytes % 27.4 Monocytes % 10.5 Eosinophils % 9.4 H Basophils % 1.9 Nucleated Red Blood Cells % 0.0 Neutrophils # 1.3 L Lymphocytes # 0.7 L Monocytes # 0.3 Eosinophils # 0.3 Basophils # 0.1 Nucleated Red Blood Cells # 0.0 Differential Comment AUTO w/SCAN Platelet Estimate PLT APPEAR DECREASED Sodium Level 135 Potassium Level 3.5 Chloride Level 98 Carbon Dioxide Level 31 Anion Gap 10 Blood Urea Nitrogen 16 Creatinine 0.69 Glucose Level 120 Calcium Level 7.5 L Phosphorus Level 4.3 Magnesium Level 1.7 Medications Medications Current Medications Ondansetron HCl (Zofran Tab) 4 mg Q6H PRN PO NAUSEA AND/OR VOMITING; Start 12/01 at 06:00 Metoclopramide HCl (Reglan) 10 mg Q6H PRN IV NAUSEA AND/OR VOMITING; Start 12/01 at 06:00 Famotidine (Pepcid) 20 mg Q12 PO Last administered on 12/25/16 21:06; Admin Dose 20 MG; Start 12/01/16 at 09:00 Gabapentin (Neurontin) 300 mg TID PO Last administered on 12/27/16 08:17; Admin Dose 300 MG; Start 12/01/16 at 09:00 Lactulose (Enulose) 10 gm BID PO Last administered on 12/27/16 08:16; Admin Dose 10 GM; Start 12/01/16 at 09:00 Thiamine HCl (Vitamin B1) 100 mg DAILY PO Last administered on 12/25/16 09:13 ; Admin Dose 100 MG; Start 12/01/16 at 09:00 Olanzapine (Zyprexa) 5 mg Q12H PRN PO for anxiety Last administered on 20:29; Admin Dose 5 MG; Start 12/03/16 at 19:00 Tramadol HCl (Ultram) 25 mg Q6H PRN PO PAIN Last administered on 12/27/16 08:23 ; Admin Dose 25 MG; Start 12/18/16 at 18:00 Hydroxyzine HCl (Atarax) 25 mg Q6H PRN GTB ITCHING Last administered on 21:13; Admin Dose 25 MG; Start 12/18/16 at 16:30 SHAHRIAR BAEZ MD December 27, 2016 12:36
[2016-12-27 21:29] VITALS: BP 126/58; RESP 18
[2016-12-27] MEDS: OLANZAPINE 5 MG TAB PO PRN (21:53)
[2016-12-28] MEDS: ALBUTEROL HFA 8 GM INHALER INH SCH ×6 (01:00→20:54)
[2016-12-28] MEDS: SPIRONOLACTONE 50 MG TAB PO SCH ×2 (05:48→17:58)
[2016-12-28] MEDS: FUROSEMIDE 40 MG TAB PO SCH ×2 (05:49→18:02)
[2016-12-28 07:30] VITALS: BP 124/59; RESP 18
[2016-12-28] MEDS: LACTULOSE 30ML CUP PO SCH ×2 (08:14→20:56)
[2016-12-28] MEDS: GABAPENTIN 300 MG CAP PO SCH ×3 (08:15→20:54)
[2016-12-28] MEDS: traMADol 50 MG TAB PO PRN ×2 (08:16→18:06)
[2016-12-28] MEDS: FAMOTIDINE 20 MG TAB PO SCH ×2 (08:18→20:55)
[2016-12-28] MEDS: THIAMINE 100 MG TAB PO SCH (08:18)
--- NOTE | 2016-12-28 11:40 | PDOCDIS ---
Discharge Instructions CONDITION Patient Condition: Good HOME CARE INSTRUCTIONS: Special Diet: regular ACTIVITY: Activity Restrictions: Slowly Increase Activity Rest between Activity Avoid heavy lifting Avoid Heavy Housework FOLLOW UP/APPOINTMENTS Appointments follow up with physician at [facility], follow up with psychiatry as outpatient SHAHRIAR BAEZ MD December 28, 2016 11:40
--- NOTE | 2016-12-28 18:53 | PN ---
Date/Time of Note Date/Time of Note DATE: 12/28/16 TIME: 18:52 Assessment/Plan VTE Prophylaxis VTE Prophylaxis Intervention: SCD's Lines/Catheters IV Catheter Type (from Nrs): NO NO SALINE LOCK Urinary Cath still in place: No Assessment/Plan Assessment/Plan 1. Generalized weakness-patient now ambulating -cont PT 2. Psychiatric disturbance with history of anxiety - Continue Zyprexa as per psychiatry - Social service and case management working on placement 3. History of substance abuse including methamphetamine, positive currently. 4. History of alcoholic cirrhosis with ascites -s/p Paracentesis 2 -Cont Lasix and Aldactone to attempt to decrease frequency of paracenteses, increased dose of Aldactone today to 200 mg p.o. twice daily, if BP tolerates this new dose then can increase Lasix to 80 mg p.o. twice daily 5. History of diabetes mellitus. 6. History of dyslipidemia. 7. Pancytopenia 2/2 Liver Dz PPx- SCD's Subjective 24 Hr Interval Summary Free Text/Dictation ambulating with PT, stable for d/c Exam/Review of Systems Vital Signs Vitals Vital Signs Date Time Temp Pulse Resp B/P Pulse Ox O2 Delivery O2 Flow Rate FiO2 12/28/16 07:30 98.1 73 18 124/59 93 12/24/16 20:00 Room Air Intake and Output 12/27/16 12/27/16 12/28/16 15:00 23:00 07:00 Intake Total 1120 ml 650 ml Output Total 1200 ml Balance -80 ml 650 ml Exam Constitutional: alert Respiratory: clear to auscultation Cardiovascular: regular rate and rhythm Gastrointestinal: soft, No distended Musculoskeletal: nl extremities to inspection Results Result Diagram: 12/27/16 0535 12/27/16 0535 Medications Medications Current Medications Ondansetron HCl (Zofran Tab) 4 mg Q6H PRN PO NAUSEA AND/OR VOMITING; Start 12/01 at 06:00 Metoclopramide HCl (Reglan) 10 mg Q6H PRN IV NAUSEA AND/OR VOMITING; Start 12/01 at 06:00 Famotidine (Pepcid) 20 mg Q12 PO Last administered on 12/27/16t 21:53; Admin Dose 20 MG; Start 12/01/16 at 09:00 Gabapentin (Neurontin) 300 mg TID PO Last administered on 12/28/16 14:17; Admin Dose 300 MG; Start 12/01/16 at 09:00 Lactulose (Enulose) 10 gm BID PO Last administered on 12/28/16 08:14; Admin Dose 10 GM; Start 12/01/16 at 09:00 Thiamine HCl (Vitamin B1) 100 mg DAILY PO Last administered on 12/25/16 09:13 ; Admin Dose 100 MG; Start 12/01/16 at 09:00 Olanzapine (Zyprexa) 5 mg Q12H PRN PO for anxiety Last administered on 21:53; Admin Dose 5 MG; Start 12/03/16 at 19:00 Tramadol HCl (Ultram) 25 mg Q6H PRN PO PAIN Last administered on 12/28/16 18:06 ; Admin Dose 25 MG; Start 12/18/16 at 18:00 Hydroxyzine HCl (Atarax) 25 mg Q6H PRN GTB ITCHING Last administered on 21:13; Admin Dose 25 MG; Start 12/18/16 at 16:30 SHAHRIAR BAEZ MD December 28, 2016 18:53
[2016-12-28 19:16] VITALS: BP 119/65; RESP 18
[2016-12-28] MEDS: OLANZAPINE 5 MG TAB PO PRN (20:55)
[2016-12-29] MEDS: ALBUTEROL HFA 8 GM INHALER INH SCH ×3 (01:00→09:20)
[2016-12-29] MEDS: SPIRONOLACTONE 50 MG TAB PO SCH (06:29)
[2016-12-29] MEDS: FUROSEMIDE 40 MG TAB PO SCH (06:29)
[2016-12-29 07:21] VITALS: BP 105/65; RESP 18
[2016-12-29] MEDS: THIAMINE 100 MG TAB PO SCH (09:00)
[2016-12-29] MEDS: FAMOTIDINE 20 MG TAB PO SCH (09:00)
[2016-12-29] MEDS: GABAPENTIN 300 MG CAP PO SCH (09:19)
[2016-12-29] MEDS: LACTULOSE 30ML CUP PO SCH (09:20)
--- NOTE | 2017-01-02 01:52 | DS ---
DATE OF ADMISSION: 12/01/2016 DATE OF DISCHARGE: 12/29/2016 FINAL DISCHARGE DIAGNOSES: 1. Acute deconditioning secondary to severe generalized weakness secondary to liver cirrhosis. 2. History of anxiety. 3. History of depression. 4. History of alcoholic liver cirrhosis with ascites, required paracentesis x2. 5. History of diabetes mellitus. 6. History of dyslipidemia. 7. Pancytopenia secondary to liver disease. 8. Severe deconditioning. CONSULTATIONS DONE DURING THIS HOSPITALIZATION: quality worker consult. PROCEDURES PERFORMED DURING THIS HOSPITALIZATION: The patient had paracentesis x2 done during this hospitalization; one was on 12/14/2016, which removed 6.3 liters of fluid. She also had a subseque nt paracentesis done on 12/20/2016, which removed approximately 2.8 liters of fluid. HOSPITAL COURSE: This is a 46-year-old female with a past medical history of coronary artery diseas e as per patient, history of a previous pleural effusion requiring thoracentesis, history of anxiety , depression, history of drug abuse including methamphetamine, and history of possible psychiatric d isorder. Her past surgical history includes C-sections and brain tumor removal. She was presented with generalized weakness, fatigue and inability to walk. The patient is noted to have severe decon ditioning from her decompensated liver cirrhosis. She had symptomatic ascites that required 2 times paracentesis and approximately 10 liters of fluid was drained during this hospitalization. She gra dually improved back to normal baseline status and had multiple physical therapy evaluations. She w as able to ambulate with a walker. Her vital signs are also stable. She had pancytopenia secondary to liver cirrhosis. She was set up for intermediate home placement upon discharge. DISPOSITION: To intermediate placement. DISCHARGE CONDITION: Stable and improved compared to admission. DISCHARGE ACTIVITIES: As tolerated, slowly resume normal baseline activity. DISCHARGE DIET: Low fat, low sodium diet. DISCHARGE MEDICATIONS: As per medical reconciliation. 1. She is continued on Lasix and Aldactone for diuresis for her liver cirrhosis and ascites. 2. She is also continued on Lactulose p.r.n. constipation along with 3. Ativan p.r.n. anxiety. DISCHARGE FOLLOWUP AND INSTRUCTIONS: The patient has been explained about the discharge plan and fo llowup instructions. She understood and verbalized understanding, and she is getting discharged to a intermediate facility. Total time spent in this patient's discharge plan making final recommendations and followup appointm ents, communicating with the nursing staff on the floor, and explaining to the patient in detail too k more than 60 minutes. Dictated By: SHAHRIAR BAEZ MD, KP/SASHA Conf#: [id number] DID#: [id number]
== END 2016-12-29 11:15 | DRG 433 ==
LOC: E/R 23:59 → UNDOADMOB 12-01 02:49 → MS2 12-01 02:49 → OBSVTOIN 12-01 20:24 → INTOOBSV 12-01 20:24 → MS2 12-02 18:10
PROVIDERS: ADMIT Family Medicine; ATTEND Family Medicine
PROC: 0W9G3ZZ Drainage of Peritoneal Cavity, Percutaneous Approach (ICD-10-PCS; principal; 2016-12-14)
PROC: 0W9G3ZZ Drainage of Peritoneal Cavity, Percutaneous Approach (ICD-10-PCS; 2016-12-20)
DX: K70.31 Alcoholic cirrhosis of liver with ascites (principal); D61.818 Other pancytopenia; F19.20 Other psychoactive substance dependence, uncomplicated; F10.21 Alcohol dependence, in remission; E78.5 Hyperlipidemia, unspecified; F41.9 Anxiety disorder, unspecified; E11.9 Type 2 diabetes mellitus without complications; I25.10 Atherosclerotic heart disease of native coronary artery without angina pectoris; F60.2 Antisocial personality disorder; Z59.0 Homelessness; F99 Mental disorder, not otherwise specified; Z86.011 Personal history of benign neoplasm of the brain; Z75.1 Person awaiting admission to adequate facility elsewhere
CPT/HCPCS: 71010; 80048; 80307; 83735; 84100; 85025; 85610; 85730; 96374; 97110; 97116; 97161; 97530; G0378; J2270

== ENCOUNTER 2017-01-07 18:54 | Emergency (ER) | payer OTHER ==
[~2017-01-07] VITALS: Ht 170.2 cm; Wt 72.0 kg
[2017-01-07] MEDS ORDERED: morphine 4 MG/ML VIAL IV STA ×2 (19:01→20:27)
[2017-01-07] MEDS ORDERED: ONDANSETRON 4 MG INJ IV STA (19:01)
[2017-01-07 19:11] VITALS: Ht 170.2 cm; Wt 72.0 kg
[2017-01-07 19:27] LABS: ADD SCAN DIFF NO
[2017-01-07 19:29] LABS: ABNORMAL IP MESSAGE 1; BASOPHILS % 1.3 % (0.0-2.0); EOSINOPHILS # 0.4 10^3/ul (0.0-0.5); EOSINOPHILS % 11.5 % (0.0-7.0); HEMATOCRIT 37.7 % (37.0-47.0); HEMOGLOBIN 12.9 g/dl (12.0-16.0); LYMPHOCYTES # 0.6 10^3/ul (0.8-2.9); LYMPHOCYTES % 17.8 % (15.0-51.0); MEAN CORPUSCULAR HEMOGLOBIN 32.7 pg (29.0-33.0); MEAN CORPUSCULAR HGB CONC 34.2 g/dl (32.0-37.0); MEAN CORPUSCULAR VOLUME 95.7 fl (82.0-101.0); MEAN PLATELET VOLUME 10.8 fl (7.4-10.4); MONOCYTE # 0.4 10^3/ul (0.3-0.9); MONOCYTES % 11.8 % (0.0-11.0); NEUTROPHIL # 1.8 10^3/ul (1.6-7.5); NEUTROPHILS % 57.3 % (39.0-77.0); PLATELET COUNT 90 10^3/UL (140-415); RED BLOOD COUNT 3.94 10^6/ul (4.20-5.40); RED CELL DISTRIBUTION WIDTH 13.4 % (11.5-14.5); WHITE BLOOD COUNT 3.1 10^3/ul (4.8-10.8)
[2017-01-07 19:44] LABS: ALBUMIN 2.2 g/dl (3.3-4.9)
[2017-01-07 19:47] LABS: ALBUMIN/GLOBULIN RATIO 0.56; CALCIUM 7.9 mg/dl (8.4-10.2); CREATININE 0.7 mg/dl (0.44-1.00); TOTAL PROTEIN 6.1 g/dl (6.1-8.1)
--- NOTE | 2017-01-07 20:25 | RADRPT ---
PROCEDURE: CT Abdomen and Pelvis without contrast. CLINICAL INDICATION: Abdominal pain TECHNIQUE: CT of the abdomen and pelvis was performed on a multi-detector scanner without IV contr ast. Coronal and sagittal images were reformatted from the axial data set. One or more of the foll owing dose reduction techniques were used: automated exposure control, adjustment of the mA and/or kV according to patient size, use of iterative reconstruction technique. CTDI = 13.3 mGy. DLP = 903 .03 mGy-cm. COMPARISON: Ultrasound, 12/20/2016 FINDINGS: CT abdomen: Moderate right pleural effusion is noted, with associated right lung base atelectasis. The heart si ze is normal, without pericardial effusion. The liver is cirrhotic. No gross evidence of focal hep atic mass is identified. There is recanalization and dilatation of the paraumbilical vein. Gallbla dder, biliary tree and pancreas are unremarkable. Splenomegaly is noted measuring 18 cm. Adrenal g lands and kidneys are unremarkable. No urolithiasis or obstructive uropathy is identified. Moderat e gastroesophageal varices are noted. The stomach is otherwise grossly unremarkable. The aorta is of normal caliber. There is no retroperitoneal lymphadenopathy. The yuri hepatis reg ion is clear. CT pelvis: No bowel obstruction, free intraperitoneal air or abscess is identified. The appendix is well visua lized and normal. No diverticulosis, diverticulitis or colitis is identified. Small amount of asci jose is present. Urinary bladder, uterus and adnexa are grossly unremarkable. No pelvic mass or lym phadenopathy is identified. The surrounding osseous structures are remarkable for mild degenerative spondylosis of the spine. N o osteolytic or osteoblastic lesion is detected. IMPRESSION: 1. The liver is cirrhotic, with signs of portal hypertension including recanalization of the paraum bilical vein, splenomegaly, moderate gastroesophageal varices, and small amount of ascites. 2. Moderate right pleural effusion is present, with associated right lung base atelectasis. 3. No mass or lymphadenopathy is identified. RPTAT: HDWR .Alli Ren MD, MD Date Time Electronically viewed and signed by .Alli Ren MD, MD on 01/07/2017 20:24 .R/
[2017-01-07] MEDS ORDERED: SOD CHLORIDE 0.9% 1,000 ML IV STA (20:27)
[2017-01-07] MEDS ORDERED: ZOLP5TAB PO (20:45)
[2017-01-07] MEDS ORDERED: FAMO20TA18 PO (20:45)
[2017-01-07] MEDS ORDERED: FURO40TA4 PO (20:45)
[2017-01-07] MEDS ORDERED: HYDR-3011 PO (20:46)
[2017-01-07] MEDS ORDERED: OLAN5TAB36 PO (20:49)
[2017-01-07] MEDS ORDERED: OXYC15TA PO (20:50)
[2017-01-07] MEDS ORDERED: SPIR100T31 PO (20:51)
[2017-01-07] MEDS ORDERED: TRAM-40 PO (20:52)
[2017-01-07] MEDS ORDERED: ONDA4TAB8 PO (20:53)
[2017-01-07] MEDS ORDERED: ALBU18HF INHALATION (20:53)
[2017-01-07 21:01] LABS: ADD UMIC YES; URINE BILIRUBIN (Dip) NEGATIVE (NEGATIVE); URINE BLOOD (Dip) 3+ (NEGATIVE); URINE COLOR YELLOW (YELLOW); URINE GLUCOSE (Dip) NEGATIVE (NEGATIVE); URINE KETONES (Dip) NEGATIVE (NEGATIVE); URINE LEUKOCYTE ESTERASE (Dip) NEGATIVE (NEGATIVE); URINE NITRITE (Dip) NEGATIVE (NEGATIVE); URINE TOTAL PROTEIN (Dip) NEGATIVE (NEGATIVE); URINE UROBILINOGEN (Dip) 1.0 E.U./dL (0.1-1.0)
[2017-01-07 21:25] LABS: BACTERIA,URINE FEW; SQUAMOUS EPITHELIAL CELL,UR FEW; URINE RBCS 25-50 /HPF (0)
--- NOTE | 2017-01-07 21:27 | ERD ---
ER Documentation Chief Complaint Date/Time DATE: 01/07/17 TIME: 21:25 Chief Complaint sent from SNF for abdominal pain r/t acities HPI This is a 46-year-old female presents to the emergency room for evaluation of abdominal pain. This patient does have a history of liver cirrhosis, hepatitis , and previous ascites. The patient states that the pain is all over her abdomen. The patient denies any nausea, vomiting, fevers, or diarrhea associated with the pain. She states that morphine or Dilaudid helps with her pain and she was brought here by ambulance from her [facility] facility. ROS All systems reviewed and are negative except as per history of present illness. Medications Home Meds Active Scripts Lactulose* (Lactulose*) 10 Gm/15 Ml Solution, 10 GM PO BID for 30 Days, ML 2 Refills Prov:YESENIA GUNN S. 11/24/16 [Thiamine] 100 MG TAB No Conflict Check, 100 MG PO DAILY, #30 2 Refills Prov:YESENIA GUNN S. 11/24/16 Gabapentin* (Neurontin*) 300 Mg Capsule, 300 MG PO TID, #90 CAP 1 Refill Prov:YESENIA GUNN S. 11/24/16 Reported Medications Ondansetron Hcl* (Zofran*) 4 Mg Tablet, 4 MG PO Q6H Y for NAUSEA AND OR VOMITING , TAB 01/07/17 Albuterol Sulfate* (Ventolin HFA*) 18 Gm Hfa.aer.ad, 2 PUFF INHALATION Q4H, #1 INHALER 01/07/17 Tramadol Hcl* (Ultram*) 50 Mg Tablet, 25 MG PO Q6H Y for PAIN LEVEL 4-10, TAB 01/07/17 Spironolactone* (Spironolactone*) 100 Mg Tablet, 100 MG PO BID, TAB HOLD IF SBP<100 01/07/17 Oxycodone Hcl* (IR) (Oxycodone Hcl*) 15 Mg Tablet, 15 MG PO Q12H Y for PAIN, TAB 01/07/17 Olanzapine* (Olanzapine* ODT) 5 Mg Tab.rapdis, 5 MG PO Q12, #30 TAB 01/07/17 Hydroxyzine Hcl* (Hydroxyzine Hcl*) 25 Mg Tablet, 25 MG PO Q6H Y for ITCHING, # 30 TAB 01/07/17 Furosemide* (Furosemide*) 40 Mg Tablet, 40 MG PO DAILY, TAB 01/07/17 Famotidine* (Famotidine*) 20 Mg Tablet, 20 MG PO Q12H, #60 TAB 01/07/17 Zolpidem Tartrate* (Ambien*) 5 Mg Tablet, 5 MG PO Q24H Y for INSOMNIA, #30 TAB 01/07/17 Discontinued Scripts Lorazepam* (Ativan*) 0.5 Mg Tablet, 0.5 MG PO BID Y for ANXIETY, #10 TAB Prov:YESENIA GUNN S. 11/24/16 Albuterol Sulfate* (Proair HFA*) 8.5 Gm Hfa.aer.ad, 2 PUFF INH Q4 for 30 Days, # 1 INHALER Prov:YESENIA GUNN S. 11/24/16 Allergies Allergies: Coded Allergies: acetaminophen (Verified Allergy, Unknown, 01/07/17) butorphanol (Verified Allergy, Unknown, 01/07/17) codeine (Verified Allergy, Unknown, 01/07/17) ketorolac (Verified Allergy, Unknown, 01/07/17) phenobarbital (Verified Allergy, Unknown, 01/07/17) phenytoin (Verified Allergy, Unknown, 01/07/17) PMhx/Soc History of Surgery: Yes (, BRAIN TUMOR REMOVAL) Anesthesia Reaction: No Hx Neurological Disorder: No Hx Respiratory Disorders: Yes (PLEURAL EFFUSIONS -S/P THORACENTESIS) Hx Cardiac Disorders: Yes (CHF, ND, CAD) Hx Psychiatric Problems: Yes ("ANXIETY") Hx Miscellaneous Medical Probl: Yes (DIABETES, DRUG USE, PSYCH DISORDER, Liver Chirrosis) Hx Alcohol Use: No Hx Substance Use: No Hx Tobacco Use: No Smoking Status: Never smoker Physical Exam Vitals Vital Signs Date Time Temp Pulse Resp B/P Pulse Ox O2 Delivery O2 Flow Rate FiO2 01/07/17 19:11 97.9 113 18 103/75 97 Physical Exam Const: No acute distress Head: Atraumatic Eyes: Normal Conjunctiva ENT: Normal External Ears, Nose and Mouth. Neck: Full range of motion..~ No meningismus. Resp: Clear to auscultation bilaterally Cardio: Regular rate and rhythm, no murmurs Abd: Epigastric tenderness to palpation, otherwise soft, non tender, non distended. Normal bowel sounds Skin: No petechiae or rashes Back: No midline or flank tenderness Ext: No cyanosis, or edema Neur: Awake and alert Psych: Normal Mood and Affect Result Diagram: 01/07/17191401/07/171914 Results 24 hrs Laboratory Tests Test 01/07/17 19:15 01/07/17 20:30 White Blood Count 3.110^3/ul Red Blood Count 3.9410^6/ul Hemoglobin 12.9g/dl Hematocrit 37.7% Mean Corpuscular Volume 95.7fl Mean Corpuscular Hemoglobin 32.7pg Mean Corpuscular Hemoglobin Concent 34.2g/dl Red Cell Distribution Width 13.4% Platelet Count 9010^3/UL Mean Platelet Volume 10.8fl Neutrophils % 57.3% Lymphocytes % 17.8% Monocytes % 11.8% Eosinophils % 11.5% Basophils % 1.3% Nucleated Red Blood Cells % 0.0/100WBC Neutrophils # 1.810^3/ul Lymphocytes # 0.610^3/ul Monocytes # 0.410^3/ul Eosinophils # 0.410^3/ul Basophils # 0.010^3/ul Nucleated Red Blood Cells # 0.010^3/ul Sodium Level 135mmol/L Potassium Level 4.0mmol/L Chloride Level 100mmol/L Carbon Dioxide Level 27mmol/L Anion Gap 12 Blood Urea Nitrogen 18mg/dl Creatinine 0.70mg/dl Glucose Level 126mg/dl Calcium Level 7.9mg/dl Total Bilirubin 1.0mg/dl Direct Bilirubin 0.00mg/dl Indirect Bilirubin 1.0mg/dl Aspartate Amino Transf (AST/SGOT) 102IU/L Alanine Aminotransferase (ALT/SGPT) 66IU/L Alkaline Phosphatase 191IU/L Total Protein 6.1g/dl Albumin 2.2g/dl Globulin 3.90g/dl Albumin/Globulin Ratio 0.56 Lipase 152U/L Urine Color YELLOW Urine Clarity CLEAR Urine pH 6.0 Urine Specific [place] 1.015 Urine Ketones NEGATIVE Urine Nitrite NEGATIVE Urine Bilirubin NEGATIVE Urine Urobilinogen 1.0 E.U./dL Urine Leukocyte Esterase NEGATIVE Urine Microscopic RBC Pending Urine Microscopic WBC Pending Urine Hemoglobin 3+ Urine Glucose NEGATIVE% Urine Total Protein NEGATIVE Urine Test NEGATIVE Current Medications Medications (Trade) Dose Ordered Sig/Laron Route PRN Reason Start Time Stop Time Status Last Admin Dose Admin Morphine Sulfate (morphine) 4 mg ONCE STAT IV 01/07/17 19:01 01/07/17 19:03 DC 01/07/17 19:21 Ondansetron HCl (Zofran Inj) 4 mg ONCE STAT IV 01/07/17 19:01 01/07/17 19:03 DC 01/07/17 19:21 Morphine Sulfate 4 mg 4 mg ONCE STAT IV 01/07/17 20:27 01/07/17 20:28 DC 01/07/17 20:59 Sodium Chloride (NS) 1,000 ml @ 1,000 mls/hr Q1H STAT IV 01/07/17 20:27 01/07/17 20:36 DC Procedures/MDM CT abdomen pelvis without: 1. The liver is cirrhotic, with signs of portal hypertension including recanalization of the paraumbilical vein, splenomegaly, moderate gastroesophageal varices, and small amount of ascites. 2. Moderate right pleural effusion is present, with associated right lung base atelectasis. 3. No mass or lymphadenopathy is identified. This 46-year-old female presents to the emergency room for evaluation of abdominal pain. When I evaluated her she had mild epigastric tenderness to palpation. Lab work was obtained including a urinalysis which is within normal limits. The CT of the abdomen and pelvis was also obtained which does not show any acute abnormalities. The patient was given morphine and states that she feels much better at this time. She is afebrile and hemodynamically stable. My suspicion for any intra-abdominal process or any spontaneous pectoral peritonitis is low at this time. The patient does have chronic thrombocytopenia and leukopenia. The patient will be discharged at this time. Differential diagnoses entertained was broad with potential high acuity. Patient has been evaluated for appendicitis, cholecystitis, and other high risk medical and surgical causes of abdominal pain. Ultimately the patient's evaluation is nondiagnostic. Based on the patient's lack of risk factors, as well as the patient's clinical, laboratory, and imaging data, the patient appears to be low risk for these high risk causes of abdominal pain. Departure Diagnosis: Primary Impression: Abdominal pain Additional Impressions: Leukopenia Thrombocytopenia Condition: Stable URI BEE DO January 07, 2017 21:27
[2017-01-07 21:33] VITALS: TEMP 98.1
[2017-01-07 23:10] VITALS: BP 105/57; PULSE 68; RESP 18
== END 2017-01-07 23:10 | disposition home or self-care (01) ==
LOC: E/R 18:54
DX: R10.13 Epigastric pain (principal); D72.819 Decreased white blood cell count, unspecified; D69.6 Thrombocytopenia, unspecified; E11.9 Type 2 diabetes mellitus without complications; I50.9 Heart failure, unspecified; I25.10 Atherosclerotic heart disease of native coronary artery without angina pectoris; Z85.841 Personal history of malignant neoplasm of brain
CPT/HCPCS: 36415; 74176; 80053; 81001; 83690; 84703; 85025; 96374; 96375; 96376; J2270; J2405; Z7502; 81003; J7030

== ENCOUNTER 2017-02-13 00:16 | Inpatient (IN) | payer OTHER ==
[2017-02-13] VITALS (14 sets, daily range): BP systolic 67–105; BP diastolic 40–62; PULSE 66–84; RESP 18–20; Ht 167.6 cm; Wt 83.8 kg
[~2017-02-13] VITALS: Ht 167.6 cm; Wt 83.8 kg
[~2017-02-13 00:16] MED LIST changes: +ALBU18HF INHALATION; -ALBU8.5H3 INH; +FAMO20TA18 PO; +FURO40TA4 PO; +HYDR-3011 PO; -LORA-441 PO; +OLAN5TAB36 PO; +ONDA4TAB8 PO; +OXYC15TA PO; +SPIR100T31 PO; +TRAM-40 PO; +ZOLP5TAB PO
[2017-02-13] MEDS ORDERED: LORA1TAB PO (03:52)
[2017-02-13] MEDS ORDERED: morphine 2 MG INJ IV ONE (07:00)
--- NOTE | 2017-02-13 08:12 | HP ---
Date/Time of Note Date/Time of Note DATE: 02/13/17 TIME: 08:11 Assessment/Plan VTE Prophylaxis VTE Prophylaxis Intervention: SCD's Lines/Catheters IV Catheter Type (from Nrs): Peripheral IV Urinary Cath still in place: No Assessment/Plan Assessment/Plan 46 yo F with pmhx alcoholic cirrhosis, chronic systolic HF presents with chest pain of unclear etio. D/dx includes ACS v noncardiac v other PLAN -serial troponins, tele monitoring, TTE, bnp -consider cardiology eval in AM pending results of above #cirrhosis: cont home diuretics and lactulose check ammonia level though no asterixis #chronic systolic HF: check TTE, cont diuretics #Borderline personality d/o: cont home psych meds #?DM2: check a1c no IVFs cardiac diet-->dietary eval given low albumin SQH/SCDs HPI/ROS Admit Date/Time Admit Date/Time Feb 13, 2017 at 02:00 Hx of Present Illness 46 yo F with pmhx alcoholic cirrhosis, chronic systolic HF admitted for chest pain. Pt not sure when her chest pain began nor is this mentioned in the EMS notes. She was initially brought [facility] but was transferred here for insurance reasons. Pt denies any chest pain or SOB at this time. No leg swelling. Reports longstanding poor memory. 10pROS neg except as per HPI PMH/Family/Social Past Medical History cirrhosis 2/2 alcoholism chronic systolic heart failure ?DM2 borderline personality disorder per SNF records Social History lives at [place] [address] Smoking Status: Former smoker Exam/Review of Systems Vital Signs Vitals Vital Signs Date Time Temp Pulse Resp B/P Pulse Ox O2 Delivery O2 Flow Rate FiO2 02/13/17 08:09 98.0 82 18 67/40 96 Intake and Output 02/12/17 02/12/17 02/13/17 15:00 23:00 07:00 Intake Total 600 ml Balance 600 ml Exam Exam nad MMM EOMI rrr no mrg lungs clear abd soft no le edema no rashes no asterixis Medications Medications Current Medications Aspirin (Aspirin) 81 mg DAILY PO ; Start 02/13/17 at 09:00; Status UNV Docusate Sodium (Colace) 100 mg Q12H PRN PO CONSTIPATION; Start 02/13/17 at 08: 30; Status UNV Magnesium Hydroxide (Milk Of Mag) 30 ml DAILY PRN PO CONSTIPATION; Start at 08:30; Status UNV Bisacodyl (Dulcolax) 5 mg DAILY PRN PO CONSTIPATION; Start 02/13/17 at 08:30; Status UNV Heparin Sodium (Porcine) (Heparin (5000 Units/0.5 ml)) 5,000 unit Q8 SC ; Start 02/13/17 at 14:00; Status UNV Albuterol (Proventil (O.r. Use Only)) 2 puff Q4H PRN INH SHORTNESS OF BREATH; Start 02/13/17 at 08:30; Status UNV Famotidine (Pepcid) 20 mg Q12H PO ; Start 02/13/17 at 08:30; Status UNV Furosemide (Lasix) 40 mg BID PO ; Start 02/13/17 at 09:00; Status UNV Gabapentin (Neurontin) 300 mg TID PO ; Start 02/13/17 at 09:00; Status UNV Hydroxyzine HCl (Atarax) 25 mg Q6H PRN PO ITCHING; Start 02/13/17 at 08:30; Status UNV Lactulose (Enulose) 10 gm BID PO ; Start 02/13/17 at 09:00; Status UNV Lorazepam (Ativan) 1 mg BID PRN PO ANXIETY; Start 02/13/17 at 08:30; Status UNV Olanzapine (Zyprexa Zydis) 5 mg Q12 PO ; Start 02/13/17 at 09:00; Status UNV Ondansetron HCl (Zofran Tab) 4 mg Q6H PRN PO NAUSEA AND/OR VOMITING; Start at 08:30; Status UNV Oxycodone HCl (Roxicodone) 15 mg Q12H PRN PO PAIN; Start 02/13/17 at 08:30; Status UNV Spironolactone (Aldactone) 50 mg BID PO ; Start 02/13/17 at 09:00; Status UNV Tramadol HCl (Ultram) 25 mg Q6H PRN PO PAIN LEVEL 4-10; Start 02/13/17 at 08:30 ; Status UNV Zolpidem Tartrate (Ambien) 5 mg Q24H PRN PO INSOMNIA; Start 02/13/17 at 08:30; Status UNV Miscellaneous Information 100 mg DAILY PO ; Start 02/13/17 at 09:00; Status UNV Procedures Procedures OSH labs reviewed 02.12 8pm: ChemP notable for Na 130, Cr 0.98, albumin 2.2, AP 176, AKT 66, AST 133 Troponin 0.01 EKG 8pm at OSH: NSR, QTc 488 EMILY BURNS MD Feb 13, 2017 08:12
[2017-02-13] MEDS ORDERED: MAGNESIUM HYDROXIDE 30ML CUP PO PRN (08:30)
[2017-02-13] MEDS ORDERED: ONDANSETRON 4 MG TAB PO PRN (08:30)
[2017-02-13] MEDS ORDERED: hydrOXYzine HCL 25 MG TAB PO PRN (08:30)
[2017-02-13] MEDS ORDERED: traMADol 50 MG TAB PO PRN (08:30)
[2017-02-13] MEDS ORDERED: NACL 0.9% 3 ML SYG IV SCH (08:30)
[2017-02-13] MEDS ORDERED: PROVENTIL HFA 6.7GM INHALER INH PRN (08:30)
[2017-02-13] MEDS ORDERED: DOCUSATE SODIUM 100 MG CAP PO PRN (08:30)
[2017-02-13] MEDS ORDERED: ZOLPIDEM 5 MG TAB PO PRN (08:30)
[2017-02-13] MEDS ORDERED: BISACODYL (EC) 5 MG TAB PO PRN (08:30)
[2017-02-13] MEDS ORDERED: ALBUTEROL HFA 8 GM INHALER INH PRN (09:00)
[2017-02-13] MEDS: FUROSEMIDE 40 MG TAB PO SCH ×2 (09:00→16:55)
[2017-02-13] MEDS: SPIRONOLACTONE 50 MG TAB PO SCH ×2 (09:00→16:55)
[2017-02-13] MEDS ORDERED: ALBUTEROL 18 GM INHALER INH PRN (09:00)
[2017-02-13] MEDS ORDERED: [UNRECOGNIZED DRUG - OTHER] PO SCH (09:00)
[2017-02-13] MEDS: LACTULOSE 30ML CUP PO SCH ×2 (10:07→21:15)
[2017-02-13] MEDS: OLANZAPINE (ODT) 5 MG TAB PO SCH ×2 (10:07→21:03)
[2017-02-13] MEDS: ASPIRIN 81 MG TAB PO SCH (10:07)
[2017-02-13] MEDS: THIAMINE 100 MG TAB PO SCH (10:07)
[2017-02-13] MEDS: FAMOTIDINE 20 MG TAB PO SCH ×2 (10:08→21:03)
[2017-02-13] MEDS: GABAPENTIN 300 MG CAP PO SCH ×3 (10:08→21:03)
[2017-02-13] MEDS: LORAZEPAM 1 MG TAB PO PRN ×2 (10:37→22:42)
[2017-02-13 10:44] LABS: ADD SCAN DIFF NO
[2017-02-13 10:49] LABS: ABNORMAL IP MESSAGE 1; EOSINOPHILS # 1.1 10^3/ul (0.0-0.5); EOSINOPHILS % 28.7 % (0.0-7.0); HEMATOCRIT 35.3 % (37.0-47.0); LYMPHOCYTES # 0.8 10^3/ul (0.8-2.9); LYMPHOCYTES % 19.6 % (15.0-51.0); MEAN CORPUSCULAR HEMOGLOBIN 34.3 pg (29.0-33.0); MEAN CORPUSCULAR VOLUME 100.9 fl (82.0-101.0); MEAN PLATELET VOLUME 11.4 fl (7.4-10.4); MONOCYTE # 0.3 10^3/ul (0.3-0.9); MONOCYTES % 7.6 % (0.0-11.0); NEUTROPHIL # 1.6 10^3/ul (1.6-7.5); NEUTROPHILS % 42.8 % (39.0-77.0); PLATELET COUNT 67 10^3/UL (140-415); RED CELL DISTRIBUTION WIDTH 17.1 % (11.5-14.5); WHITE BLOOD COUNT 3.8 10^3/ul (4.8-10.8)
[2017-02-13 11:14] LABS: CALCIUM 7.5 mg/dl (8.4-10.2); CHOL/HDL RATIO 2.5 RATIO; POTASSIUM 4.4 mmol/L (3.5-5.1)
[2017-02-13 13:38] LABS: CREATINE KINASE 32 IU/L (23-200)
[2017-02-13 13:53] LABS: CK-MB 1.01 ng/ml (0.0-2.4)
[2017-02-13 13:56] LABS: TROPONIN-I < 0.012 ng/ml (0.00-0.12)
[2017-02-13] MEDS: HEPARIN 5,000 UNIT/0.5 ML VIAL SC SCH ×2 (14:37→21:08)
[2017-02-13] MEDS: oxyCODONE 15 MG TAB PO PRN (14:38)
[2017-02-13 20:35] LABS: CREATINE KINASE 33 IU/L (23-200)
[2017-02-13 20:46] LABS: CK-MB 1.11 ng/ml (0.0-2.4); TROPONIN-I < 0.012 ng/ml (0.00-0.12)
[2017-02-14] VITALS (8 sets, daily range): BP systolic 98–108; BP diastolic 54–69; PULSE 75–82; RESP 17–20
[2017-02-14] MEDS: FUROSEMIDE 40 MG TAB PO SCH ×2 (06:12→18:00)
[2017-02-14] MEDS: SPIRONOLACTONE 50 MG TAB PO SCH ×2 (06:12→18:00)
[2017-02-14] MEDS: HEPARIN 5,000 UNIT/0.5 ML VIAL SC SCH ×2 (06:15→14:00)
[2017-02-14 07:03] LABS: CALCIUM 7.9 mg/dl (8.4-10.2); CREATININE 0.74 mg/dl (0.44-1.00); POTASSIUM 4.6 mmol/L (3.5-5.1)
[2017-02-14] MEDS: OLANZAPINE (ODT) 5 MG TAB PO SCH ×2 (09:00→09:26)
[2017-02-14] MEDS: GABAPENTIN 300 MG CAP PO SCH ×2 (09:26→14:22)
[2017-02-14] MEDS: THIAMINE 100 MG TAB PO SCH (09:26)
[2017-02-14] MEDS: ASPIRIN 81 MG TAB PO SCH (09:26)
[2017-02-14] MEDS: FAMOTIDINE 20 MG TAB PO SCH ×2 (09:26→09:38)
[2017-02-14] MEDS: LACTULOSE 30ML CUP PO SCH (09:27)
--- NOTE | 2017-02-14 11:34 | EN ---
Date/Time of Note Date/Time of Note DATE: 02/14/17 TIME: 11:30 Event Note Medicine Medicine Event Note I was told by nursing staff that pt has advanced directive that state that she is DNR/DNI with comfort measures only, which is indicated in the POLST. i have talked to pt about this to verify and she sated that she wants to remain DNR/DNI , but with limited treatment. She wants to continue her diuretics, lactulose, PPI and pain management. . DAVID ROE MD Feb 14, 2017 11:34
--- NOTE | 2017-02-14 11:40 | PDOCDIS ---
Discharge Instructions CONDITION Patient Condition: Stable HOME CARE INSTRUCTIONS: Diet Instructions: 2gm Na ACTIVITY: Activity Restrictions: No Restrictions FOLLOW UP/APPOINTMENTS Appointments Follow-up at skilled nursing DAVID ROE MD Feb 14, 2017 11:40
--- NOTE | 2017-02-14 13:06 | DS ---
DATE OF ADMISSION: 02/13/2017 DATE OF DISCHARGE: 02/14/2017 DISCHARGE DIAGNOSES: 1. Chest pain, acute coronary syndrome was ruled out with 2 negative troponins. 2. History of decompensated alcoholic liver cirrhosis with a history of ascites requiring paracente sis. 3. History of psychiatric disorder. 4. History of anxiety and depression. 5. History of substance abuse including alcohol and methamphetamine. 6. History of diabetes. 7. History of dyslipidemia. HOSPITAL COURSE: The patient is a 46-year-old female with a history of decompensated alcoholic live r cirrhosis with ascites requiring paracentesis in the past, psychiatric disorder, anxiety and depre ssion, diabetes, dyslipidemia who was sent from [facility] because of insurance reasons for management of chest pain. The patient was initially admitted to telemetry unit and so far she h ad 2 negative troponins. Currently, she is chest pain free, her vitals are stable, and as such, she will be discharged to a ____ facility. Of note, the patient has advanced directives that stated th at she is a DNR/DNI with comfort measures only. I looked at her POLST which indicated that, in fact , she was to be comfort measures only. I the have talked to the patient to verify this and she init lorna stated that yes that she wants to only be comfortable, but when I told her that means her psyc hiatric medications, her diuretics, and other medications were not related to comfort are going to b e disconnected she seemed puzzled by that and stated that now she wants to continue those medication s, but she absolutely wants to remain DNR/DNI. Will change her code status accordingly to DNR/DNI w ith limited treatment. Of note, the patient had a 2-D echo 2 months ago here which showed a stage I diastolic dysfunction, but with a preserved ejection fraction of 60%. CONDITION ON DISCHARGE: Stable. MEDICATIONS UPON DISCHARGE: The patient is to continue her medications which include: 1. Albuterol. 2. Lasix. 3. Famotidine. 4. Gabapentin. 5. Hydroxyzine. 6. Lactulose. 7. Ativan. 8. Olanzapine. 9. Oxycodone. 10. Aldactone. 11. Tramadol. 12. Ambien. 13. Thiamine. FOLLOWUP: The patient is being discharged back to her facility where she will continue to be cared. Total time spent with this discharge summary is about 40 minutes. Dictated By: DAVID RODRIGUEZ/SASHA Conf#: [id number] DID#: [id number]
[2017-02-14] MEDS: oxyCODONE 15 MG TAB PO PRN (18:08)
--- NOTE | 2017-02-15 13:59 | RADRPT ---
Vent Rate: 82 bpm RR Interval: 0 msec MO Interval: 136 msec QRS Duration: 88 msec QT Interval: 428 msec QTC Interval: 500 msec P-R-T [place]: 48 - 30 - 67 degrees Normal sinus rhythm with sinus arrhythmia Prolonged QT Abnormal ECG Electronically Signed By: Kt Trejo [id number]
--- NOTE | 2017-02-15 14:00 | RADRPT ---
Vent Rate: 69 bpm RR Interval: 0 msec [place] Interval: 144 msec QRS Duration: 90 msec QT Interval: 448 msec QTC Interval: 480 msec P-R-T [place]: 32 - 30 - 68 degrees Normal sinus rhythm Nonspecific T wave abnormality Prolonged QT Abnormal ECG Electronically Signed By: Kt Trejo [id number]
== END 2017-02-14 18:55 | DRG 313 ==
LOC: TEL 02:00
PROVIDERS: ADMIT Family Medicine; ATTEND Family Medicine
DX: R07.9 Chest pain, unspecified (principal); I50.22 Chronic systolic (congestive) heart failure; K70.30 Alcoholic cirrhosis of liver without ascites; F60.3 Borderline personality disorder; Z66 Do not resuscitate; F32.9 Major depressive disorder, single episode, unspecified; F41.9 Anxiety disorder, unspecified; E11.9 Type 2 diabetes mellitus without complications; Z79.82 Long term (current) use of aspirin
CPT/HCPCS: 80048; 80061; 82140; 82550; 82553; 83036; 83735; 83880; 83930; 83935; 84484; 85025; 93005; J1644; J2270

== ENCOUNTER 2017-03-13 11:55 | Inpatient (IN) | payer OTHER ==
[~2017-03-13] VITALS: Ht 170.2 cm; Wt 72.6 kg
[~2017-03-13 11:55] MED LIST changes: +LORA1TAB PO
[2017-03-13 14:28] VITALS: Ht 170.2 cm; Wt 72.6 kg
[2017-03-13 14:29] VITALS: BP 106/51; PULSE 73; RESP 20
[2017-03-13] MEDS ORDERED: ONDANSETRON 4 MG TAB PO PRN ×2 (14:30→15:00)
[2017-03-13] MEDS ORDERED: ONDANSETRON 4 MG INJ IV PRN (14:30)
[2017-03-13] MEDS ORDERED: DOCUSATE SODIUM 100 MG CAP PO PRN (14:30)
[2017-03-13] MEDS ORDERED: MAGNESIUM HYDROXIDE 30ML CUP PO PRN (14:30)
[2017-03-13] MEDS ORDERED: NACL 0.9% 3 ML SYG IV SCH (14:30)
--- NOTE | 2017-03-13 14:39 | HP ---
Date/Time of Note Date/Time of Note DATE: 03/13/17 TIME: 14:34 Assessment/Plan VTE Prophylaxis VTE Prophylaxis Intervention: SCD's HPI/ROS Admit Date/Time Admit Date/Time Mar 13, 2017 at 14:10 Hx of Present Illness 46 yo F with pmhx etoh (v HepC) cirrhosis, ?borderline personality d/o who resides at a SNF transferred from OSH ([facility]) where she was brought earlier today for abd pain. Pt not sure how long the abd pain has been present. Also not sure the last PMH/Family/Social Past Medical History Cirrhosis 2/2 HepC v alcohol c/b HE, ?EV, ?borderline PD GERD Exam/Review of Systems Medications Medications Current Medications Sodium Chloride (NS) 1,000 ml @ 125 mls/hr Q8H IV ; Start 03/13/17 at 14:29 Ondansetron HCl (Zofran Tab) 4 mg Q6H PRN PO NAUSEA AND/OR VOMITING; Start at 14:30; Status UNV Ondansetron HCl (Zofran Inj) 4 mg Q6H PRN IV NAUSEA AND/OR VOMITING; Start at 14:30; Status UNV Docusate Sodium (Colace) 100 mg Q12H PRN PO CONSTIPATION; Start 03/13/17 at 14: 30; Status UNV Magnesium Hydroxide (Milk Of Mag) 30 ml DAILY PRN PO CONSTIPATION; Start at 14:30; Status UNV Enoxaparin Sodium (Lovenox) 40 mg DAILY SC ; Start 03/14/17 at 09:00; Status UNV Procedures Procedures OSH labs and imaging reviewed 2.8>11.4/33.6<61 Cr 0.85 Alb 2.4 AST 110, ALT [address] AP large R pleural effusion (per ER notes, was also seen on imaging when pt was seen there earlier in the week) ITALO infiltrate mildly dilated small bowel loops with air/fluid level-->cw ileuis/enteritis. No evidence of SBO cirrhotic liver +splenomegaly no gallstones, no obstructive uropathy diverticulosis without diverticulitis nl appendix small amount of free fluid sent at OSH but results still pending: blood cultures x 2, urine culture, lipase, lactic acid, procalcitonin, UA STOLAREMILY MD Mar 13, 2017 14:39
[2017-03-13] MEDS ORDERED: LORAZEPAM 1 MG TAB PO PRN (15:00)
[2017-03-13] MEDS ORDERED: GLUCAGON 1 MG INJ IM PRN (15:00)
[2017-03-13] MEDS ORDERED: GLUCOSE GEL 15 GRAM TUBE BUCCAL PRN (15:00)
[2017-03-13] MEDS ORDERED: GLUCOSE GEL 15 GRAM TUBE PO PRN ×2 (15:00)
[2017-03-13] MEDS ORDERED: traMADol 50 MG TAB PO PRN (15:00)
[2017-03-13] MEDS ORDERED: DEXTROSE 50% 50 ML SYRINGE IV PRN ×2 (15:00)
[2017-03-13] MEDS ORDERED: hydrOXYzine HCL 25 MG TAB PO PRN (15:00)
[2017-03-13] MEDS ORDERED: ZOLPIDEM 5 MG TAB PO PRN (15:00)
[2017-03-13] MEDS: FAMOTIDINE 20 MG TAB PO SCH ×2 (15:15→23:00)
[2017-03-13] MEDS: oxyCODONE 15 MG TAB PO PRN (15:15)
[2017-03-13] MEDS: SOD CHLORIDE 0.9% 1,000 ML IV SCH (15:15)
[2017-03-13 17:14] LABS: CALCIUM 7.7 mg/dl (8.4-10.2); CREATININE 0.74 mg/dl (0.44-1.00); MAGNESIUM 1.9 mg/dl (1.7-2.5); POTASSIUM 4.3 mmol/L (3.5-5.1)
[2017-03-13] MEDS: INSULIN ASPART [NOVOLOG] 3 ML PEN SC SCH ×2 (17:35→21:00)
[2017-03-13] MEDS: ALBUTEROL 18 GM INHALER INH SCH ×2 (17:38→21:00)
[2017-03-13] MEDS: FUROSEMIDE 40 MG TAB PO SCH (17:38)
[2017-03-13 19:53] VITALS: BP 103/59; RESP 20
[2017-03-13] MEDS: OLANZAPINE (ODT) 5 MG TAB PO SCH (21:00)
[2017-03-13] MEDS: GABAPENTIN 300 MG CAP PO SCH (21:00)
[2017-03-13] MEDS: SPIRONOLACTONE 50 MG TAB PO SCH (21:00)
[2017-03-13] MEDS: LACTULOSE 30ML CUP PO SCH (21:00)
[2017-03-14] MEDS: ALBUTEROL 18 GM INHALER INH SCH ×6 (00:18→20:19)
[2017-03-14] MEDS: SOD CHLORIDE 0.9% 1,000 ML IV SCH ×2 (00:19→06:09)
[2017-03-14] MEDS ORDERED: VITAMIN A & D 5 GM OINT PACKET TOP ONE (00:44)
[2017-03-14] MEDS: ACCU-CHEK XX SCH (01:55)
[2017-03-14 02:00] VITALS: BP 100/60; RESP 20
[2017-03-14] MEDS ORDERED: ACCU-CHEK XX SCH (02:00)
[2017-03-14] MEDS: FUROSEMIDE 40 MG TAB PO SCH (05:42)
[2017-03-14 05:46] LABS: CALCIUM 7.2 mg/dl (8.4-10.2); CREATININE 0.83 mg/dl (0.44-1.00); MAGNESIUM 1.5 mg/dl (1.7-2.5); POTASSIUM 4.2 mmol/L (3.5-5.1)
[2017-03-14 07:27] VITALS: BP 119/57; RESP 18
[2017-03-14] MEDS: SPIRONOLACTONE 50 MG TAB PO SCH ×2 (08:07→20:18)
[2017-03-14] MEDS: GABAPENTIN 300 MG CAP PO SCH ×3 (08:07→20:18)
[2017-03-14] MEDS: INSULIN ASPART [NOVOLOG] 3 ML PEN SC SCH ×3 (08:15→20:17)
[2017-03-14] MEDS: LACTULOSE 30ML CUP PO SCH ×2 (09:00→20:18)
[2017-03-14] MEDS ORDERED: ENOXAPARIN 40 MG/0.4 ML SYG SC SCH (09:00)
[2017-03-14] MEDS: THIAMINE 100 MG TAB PO SCH (09:00)
[2017-03-14] MEDS: FAMOTIDINE 20 MG TAB PO SCH ×2 (09:00→20:19)
[2017-03-14] MEDS: OLANZAPINE (ODT) 5 MG TAB PO SCH ×2 (09:00→20:19)
[2017-03-14] MEDS ORDERED: MAGNESIUM SULFATE 2 GM/50 ML 50 ML IVPB ONE (11:30)
--- NOTE | 2017-03-14 11:30 | PN ---
Date/Time of Note Date/Time of Note DATE: 03/14/17 TIME: 11:24 Assessment/Plan VTE Prophylaxis VTE Prophylaxis Intervention: contraindicated (cirrhosis, elevated INR) Lines/Catheters IV Catheter Type (from Nrsg): Saline Lock Assessment/Plan Chief Complaint/Hosp Course A/P: 46 yo F with cirrhosis, ?borderline PD who resides at a SNF brought to OSH for abd pain. Work up there notable for possible ileus as well as right large pleural effusion PLAN For thoracentesis today. Continue soft diet as patient is tolerating this now and she has passed gas. slowly advance diet as tolerated; IVFs cont home meds pain control Replete low magnesium today SSI and accuchecks for DM2 if abd pain not better by tomorrow consider repeating imaging If symptoms improve, possible discharge back to custodial facility in 24 hours, discussed with patient who agrees for now. Problems: Subjective 24 Hr Interval Summary Free Text/Dictation Patient states she is passing gas. Denies any current abdominal pain. Exam/Review of Systems Vital Signs Vitals Vital Signs Date Time Temp Pulse Resp B/P Pulse Ox O2 Delivery O2 Flow Rate FiO2 03/14/17 07:27 98.3 72 18 119/57 93 03/13/17 14:29 Room Air Intake and Output 03/13/17 03/13/17 03/14/17 15:00 23:00 07:00 Intake Total 670 ml 1198 ml Balance 670 ml 1198 ml Exam laying in bed, EOMI dry MM no mrg lungs clear abd soft, less ttp in bl UQs, +normoactive BS no rashes no le edema Results Result Diagram: 03/14/17 0503 Results 24 hrs Laboratory Tests Test 03/13/17 16:10 03/13/17 17:16 03/13/17 20:08 03/14/17 05:03 Sodium Level 140 136 Potassium Level 4.3 4.2 Chloride Level 104 104 Carbon Dioxide Level 27 23 Anion Gap 13 13 Blood Urea Nitrogen 16 15 Creatinine 0.74 0.83 Glucose Level 99 79 Calcium Level 7.7 L 7.2 L Magnesium Level 1.9 1.5 L Bedside Glucose 89 123 Test 03/14/17 07:53 Bedside Glucose 86 Medications Medications Current Medications Ondansetron HCl (Zofran Inj) 4 mg Q6H PRN IV NAUSEA AND/OR VOMITING; Start at 14:30 Docusate Sodium (Colace) 100 mg Q12H PRN PO CONSTIPATION; Start 03/13/17 at 14: 30 Magnesium Hydroxide (Milk Of Mag) 30 ml DAILY PRN PO CONSTIPATION; Start at 14:30 Enoxaparin Sodium (Lovenox) 40 mg DAILY SC ; Start 03/14/17 at 09:00 Diagnostic Test (Pha) (Accu-Chek) 1 ea 02 XX ; Start 03/14/17 at 02:00 Miscellaneous Information 1 ea NOTE XX ; Start 03/13/17 at 15:00 Glucose (Glutose) 15 gm Q15M PRN PO DECREASED GLUCOSE; Start 03/13/17 at 15:00 Glucose (Glutose) 22.5 gm Q15M PRN PO DECREASED GLUCOSE; Start 03/13/17 at 15: 00 Dextrose (D50w Syringe) 25 ml Q15M PRN IV DECREASED GLUCOSE; Start 03/13/17 at 15:00 Dextrose (D50w Syringe) 50 ml Q15M PRN IV DECREASED GLUCOSE; Start 03/13/17 at 15:00 Glucagon (Glucagen) 1 mg Q15M PRN IM DECREASED GLUCOSE; Start 03/13/17 at 15:00 Glucose (Glutose) 15 gm Q15M PRN BUCCAL DECREASED GLUCOSE; Start 03/13/17 at 15 :00 Albuterol (Ventolin Hfa) 2 puff Q4 INH Last administered on 03/13/17 17:38; Admin Dose 2 PUFF; Start 03/13/17 at 17:00 Famotidine (Pepcid) 20 mg Q12 PO Last administered on 03/13/17 15:15; Admin Dose 20 MG; Start 03/13/17 at 15:00 Gabapentin (Neurontin) 300 mg TID PO Last administered on 03/14/17 08:07; Admin Dose 300 MG; Start 03/13/17 at 21:00 Hydroxyzine HCl (Atarax) 25 mg Q6H PRN PO ITCHING; Start 03/13/17 at 15:00 Lactulose (Enulose) 10 gm BID PO ; Start 03/13/17 at 21:00 Lorazepam (Ativan) 1 mg BID PRN PO ANXIETY; Start 03/13/17 at 15:00 Olanzapine (Zyprexa Zydis) 5 mg Q12 PO ; Start 03/13/17 at 21:00 Ondansetron HCl (Zofran Tab) 4 mg Q6H PRN PO NAUSEA AND/OR VOMITING; Start at 15:00 Oxycodone HCl (Roxicodone) 15 mg Q12H PRN PO PAIN Last administered on 15:15; Admin Dose 15 MG; Start 03/13/17 at 15:00 Spironolactone (Aldactone) 50 mg BID PO Last administered on 03/14/17 08:07; Admin Dose 50 MG; Start 03/13/17 at 21:00 Zolpidem Tartrate (Ambien) 5 mg Q24H PRN PO INSOMNIA Last administered on 00:23; Admin Dose 5 MG; Start 03/13/17 at 15:00 Thiamine HCl 100 mg 100 mg DAILY PO ; Start 03/14/17 at 09:00 Magnesium Sulfate (Magnesium Sulfate 2 Gm/50 ml) 50 ml @ 25 mls/hr ONCE ONCE IVPB ; Start 03/14/17 at 11:30; Stop 03/14/17 at 13:29 YESENIA GUNN Mar 14, 2017 11:30
[2017-03-14 12:53] LABS: INR 1.66; PROTIME 19.7 Sec (12.2-14.2); PT RATIO 1.5
[2017-03-14 14:00] VITALS: BP 118/72; RESP 18
[2017-03-14] MEDS: oxyCODONE 15 MG TAB PO PRN (14:07)
[2017-03-14] MEDS ORDERED: LIDOCAINE 1% (MPF) 5 ML VIAL ONE (17:23)
--- NOTE | 2017-03-14 17:57 | RADRPT ---
PROCEDURE: US guided right thoracentesis. CLINICAL INDICATION: Shortness of breath. Right pleural effusion. TECHNIQUE: Prior to the procedure, informed consent was obtained. The risks, benefits, and alternatives were e xplained to the patient or the patient's family, including but not limited to bleeding, infection, p ain, visceral or vascular damage, shock, pneumothorax, chest tube placement, air embolism, and . The patient or the patient's family understood the risks and the alternatives and wished to proce ed with the study. Informed written consent was obtained. A procedural pause was performed. The patient's name, date of , and procedure to be performed were verified. Ultrasound of the right hemithorax was performed in the axial and sagittal planes. A right pleural e ffusion is noted. Utilizing ultrasound guidance, optimal location for entry to the pleural cavity wa s ascertained. The overlying skin was prepped and draped in the usual sterile fashion. Approximate ly 10 ml of 1% Xylocaine was injected locally for pain control. Using ultrasound guidance, a 5-Fren Yueh catheter was introduced into the right pleural space without difficulty. Fluid was aspirated . COMPARISON: None. FINDINGS: Initial ultrasound demonstrates fluid in the right pleural space. Approximately 2.0 liters of serou s fluid was aspirated and discarded. IMPRESSION: 1. Satisfactory ultrasound-guided right thoracentesis. RPTAT: QQ .Alexander Michelle MD, Date Time Electronically viewed and signed by .Alexander Michelle MD, on 03/14/2017 17:57 .R/
--- NOTE | 2017-03-14 17:59 | RADRPT ---
PROCEDURE: XR Chest. CLINICAL INDICATION: Status post right thoracentesis TECHNIQUE: AP Portable chest. COMPARISON: Ultrasound dated 03/14/[address] 01/07/2017 FINDINGS: Low lung volumes are noted. The soft tissues and bones are remarkable for mild degenerative spondylosis of the imaged spine.. Ri ght lower lobe atelectasis is again noted with small right pleural effusion. The mediastinum and hea rt are normal. No pneumothorax is present. IMPRESSION: 1. Status post right thoracentesis without evidence for pneumothorax. 2. Right lower lobe discoid atelectasis and small residual right pleural effusion 3. Low lung volume expiratory view RPTAT: HDC .Madelyn España MD, MD Date Time Electronically viewed and signed by .Madelyn España MD, on 03/14/2017 17:59 .C/
[2017-03-14 20:26] VITALS: BP 111/58; RESP 18
[2017-03-15] MEDS: ALBUTEROL 18 GM INHALER INH SCH ×4 (01:00→12:53)
[2017-03-15] MEDS: ACCU-CHEK XX SCH (02:00)
[2017-03-15 02:38] VITALS: BP 99/52; RESP 20
[2017-03-15 05:36] LABS: ADD SCAN DIFF NO
[2017-03-15 05:45] LABS: ABNORMAL IP MESSAGE 1; BASOPHILS % 1.2 % (0.0-2.0); EOSINOPHILS # 0.3 10^3/ul (0.0-0.5); HEMATOCRIT 30.8 % (37.0-47.0); HEMOGLOBIN 10.1 g/dl (12.0-16.0); LYMPHOCYTES # 0.6 10^3/ul (0.8-2.9); LYMPHOCYTES % 24.3 % (15.0-51.0); MEAN CORPUSCULAR HEMOGLOBIN 34.1 pg (29.0-33.0); MEAN CORPUSCULAR HGB CONC 32.8 g/dl (32.0-37.0); MEAN CORPUSCULAR VOLUME 104.1 fl (82.0-101.0); MONOCYTE # 0.3 10^3/ul (0.3-0.9); NEUTROPHIL # 1.3 10^3/ul (1.6-7.5); NEUTROPHILS % 50.1 % (39.0-77.0); PLATELET COUNT 45 10^3/UL (140-415); RED BLOOD COUNT 2.96 10^6/ul (4.20-5.40); RED CELL DISTRIBUTION WIDTH 16.2 % (11.5-14.5); WHITE BLOOD COUNT 2.5 10^3/ul (4.8-10.8)
[2017-03-15 06:12] LABS: CALCIUM 7.2 mg/dl (8.4-10.2); CREATININE 0.78 mg/dl (0.44-1.00); POTASSIUM 4.6 mmol/L (3.5-5.1)
[2017-03-15 06:13] LABS: MEAN PLATELET VOLUME 13.7 fl (7.4-10.4)
[2017-03-15] MEDS: oxyCODONE 15 MG TAB PO PRN (06:28)
[2017-03-15] MEDS: FUROSEMIDE 40 MG TAB PO SCH (06:29)
[2017-03-15 07:09] LABS: MAGNESIUM 1.8 mg/dl (1.7-2.5); PHOSPHORUS 3.4 mg/dl (2.5-4.9)
[2017-03-15 07:37] VITALS: BP 98/51; RESP 20
[2017-03-15] MEDS: INSULIN ASPART [NOVOLOG] 3 ML PEN SC SCH ×2 (07:52→12:15)
[2017-03-15] MEDS: LACTULOSE 30ML CUP PO SCH (08:21)
[2017-03-15] MEDS: SPIRONOLACTONE 50 MG TAB PO SCH (08:21)
[2017-03-15] MEDS: GABAPENTIN 300 MG CAP PO SCH ×2 (08:22→12:53)
[2017-03-15] MEDS: OLANZAPINE (ODT) 5 MG TAB PO SCH (08:27)
[2017-03-15] MEDS: THIAMINE 100 MG TAB PO SCH (08:27)
[2017-03-15] MEDS: FAMOTIDINE 20 MG TAB PO SCH (08:27)
--- NOTE | 2017-03-15 10:11 | PDOCDIS ---
Discharge Instructions CONDITION Patient Condition: Stable HOME CARE INSTRUCTIONS: Special Diet: Soft Diet ACTIVITY: Activity Restrictions: Slowly Increase Activity FOLLOW UP/APPOINTMENTS Follow-up Plan Please take your medicines as prescribed. Please follow-up with your primary doctor in the clinic in the next 1-2 weeks. YESENIA GUNN Mar 15, 2017 10:11
--- NOTE | 2017-03-15 10:16 | DS ---
Date/Time of Note Date/Time of Note DATE: 03/15/17 TIME: 10:12 Discharge Summary Admission/Discharge Info Admit Date/Time Mar 13, 2017 at 14:10 Discharge Date/Time Discharge Diagnosis Abd pain -status post right-sided thoracentesis with 2 L removed Hx of prior Chest pain -resolved History of decompensated alcoholic liver cirrhosis with a history of ascites requiring paracentesis. History of psychiatric disorder. History of anxiety and depression. History of substance abuse including alcohol and methamphetamine. History of diabetes. History of dyslipidemia. History of thrombocytopenia secondary to liver disease Patient Condition: Stable Hospital Course 46 yo F with pmhx etoh (v HepC) cirrhosis, ?borderline personality d/o who resides at a SNF transferred from [facility] ([facility]) where she was brought in for abd pain. Imaging indicated positive ileus as well as right large pleural effusion. Patient was admitted to MedSurg floor, underwent right sided thoracentesis with 2 L removed. Her abdominal pain symptoms resolved, she was able to tolerate p.o. diet, and pass gas. She also had some repletion of some low magnesium levels, and continue insulin for her type 2 diabetes, sugars are stable. Plan [facility] in improved condition. Please see printed medical reconciliation list for full discharge medication list. Home Meds Active Scripts Lactulose* (Lactulose*) 10 Gm/15 Ml Solution, 10 GM PO BID for 30 Days, ML 2 Refills Prov:YESENIA GUNN S. 11/24/16 [Thiamine] 100 MG TAB No Conflict Check, 100 MG PO DAILY, #30 2 Refills Prov:YESENIA GUNN S. 11/24/16 Gabapentin* (Neurontin*) 300 Mg Capsule, 300 MG PO TID, #90 CAP 1 Refill Prov:YESENIA GUNN S. 11/24/16 Reported Medications Lorazepam* (Lorazepam*) 1 Mg Tablet, 1 MG PO BID Y for ANXIETY, #30 TAB 02/13/17 Ondansetron Hcl* (Zofran*) 4 Mg Tablet, 4 MG PO Q6H Y for NAUSEA AND OR VOMITING , TAB 01/07/17 Albuterol Sulfate* (Ventolin HFA*) 18 Gm Hfa.aer.ad, 2 PUFF INHALATION Q4H, #1 INHALER 01/07/17 Tramadol Hcl* (Ultram*) 50 Mg Tablet, 25 MG PO Q6H Y for PAIN LEVEL 4-10, TAB 01/07/17 Spironolactone* (Spironolactone*) 100 Mg Tablet, 50 MG PO BID, TAB HOLD IF SBP<100 01/07/17 Oxycodone Hcl* (IR) (Oxycodone Hcl*) 15 Mg Tablet, 15 MG PO Q12H Y for PAIN, TAB 01/07/17 Olanzapine* (Olanzapine* ODT) 5 Mg Tab.rapdis, 5 MG PO Q12, #30 TAB 01/07/17 Hydroxyzine Hcl* (Hydroxyzine Hcl*) 25 Mg Tablet, 25 MG PO Q6H Y for ITCHING, # 30 TAB 01/07/17 Furosemide* (Furosemide*) 40 Mg Tablet, 40 MG PO BID, TAB 01/07/17 Famotidine* (Famotidine*) 20 Mg Tablet, 20 MG PO Q12H, #60 TAB 01/07/17 Zolpidem Tartrate* (Ambien*) 5 Mg Tablet, 5 MG PO Q24H Y for INSOMNIA, #30 TAB 01/07/17 Primary Care Provider Kelsey Peck Time spent on discharge: > 30 minutes Pending Labs Laboratory Tests Test 03/14/17 12:02 03/14/17 15:40 03/14/17 17:43 03/14/17 20:16 Prothrombin Time 19.7Sec (12.2-14.2) Prothrombin Time Ratio 1.5 INR International Normalized Ratio 1.66 Ammonia 33umol/l (9-30) Platelet Count 5910^3/UL (140-415) Bedside Glucose 136mg/dL (70-220) 120mg/dL (70-220) Test 03/15/17 05:11 03/15/17 07:49 White Blood Count 2.510^3/ul (4.8-10.8) Red Blood Count 2.9610^6/ul (4.20-5.40) Hemoglobin 10.1g/dl (12.0-16.0) Hematocrit 30.8% (37.0-47.0) Mean Corpuscular Volume 104.1fl (82.0-101.0) Mean Corpuscular Hemoglobin 34.1pg (29.0-33.0) Mean Corpuscular Hemoglobin Concent 32.8g/dl (32.0-37.0) Red Cell Distribution Width 16.2% (11.5-14.5) Platelet Count 4510^3/UL (140-415) Mean Platelet Volume 13.7fl (7.4-10.4) Neutrophils % 50.1% (39.0-77.0) Lymphocytes % 24.3% (15.0-51.0) Monocytes % 12.0% (0.0-11.0) Eosinophils % 12.0% (0.0-7.0) Basophils % 1.2% (0.0-2.0) Nucleated Red Blood Cells % 0.0/100WBC (0.0-0.0) Neutrophils # 1.310^3/ul (1.6-7.5) Lymphocytes # 0.610^3/ul (0.8-2.9) Monocytes # 0.310^3/ul (0.3-0.9) Eosinophils # 0.310^3/ul (0.0-0.5) Basophils # 0.010^3/ul (0.0-0.1) Nucleated Red Blood Cells # 0.010^3/ul (0.0-0.0) Sodium Level 136mmol/L (135-144) Potassium Level 4.6mmol/L (3.5-5.1) Chloride Level 100mmol/L (97-110) Carbon Dioxide Level 27mmol/L (21-31) Anion Gap 14 (8-16) Blood Urea Nitrogen 15mg/dl (7-20) Creatinine 0.78mg/dl (0.44-1.00) Glucose Level 117mg/dl (70-220) Calcium Level 7.2mg/dl (8.4-10.2) Phosphorus Level 3.4mg/dl (2.5-4.9) Magnesium Level 1.8mg/dl (1.7-2.5) Bedside Glucose 77mg/dL (70-220) YESENIA GUNN Mar 15, 2017 10:16
[2017-03-15 15:19] VITALS: BP 108/61; RESP 20
== END 2017-03-15 18:25 | DRG 187 ==
LOC: MS2 14:10
PROVIDERS: ADMIT Internal Medicine; ATTEND Internal Medicine
PROC: 0W993ZZ Drainage of Right Pleural Cavity, Percutaneous Approach (ICD-10-PCS; principal; 2017-03-14)
DX: J90 Pleural effusion, not elsewhere classified (principal); K56.7 Ileus, unspecified; K70.30 Alcoholic cirrhosis of liver without ascites; F41.9 Anxiety disorder, unspecified; E11.9 Type 2 diabetes mellitus without complications; B18.2 Chronic viral hepatitis C; Z51.5 Encounter for palliative care; Z88.8 Allergy status to other drugs, medicaments and biological substances; Z85.841 Personal history of malignant neoplasm of brain; Z86.59 Personal history of other mental and behavioral disorders; Z86.2 Personal history of diseases of the blood and blood-forming organs and certain disorders involving the immune mechanism
CPT/HCPCS: 71010; 76942; 80048; 82140; 82962; 83735; 84100; 85025; 85049; 85610; 87081; J1650; J1815; J2405; J3475; J7030

== ENCOUNTER 2017-04-26 06:05 | Inpatient (IN) | payer OTHER ==
[~2017-04-26] VITALS: Ht 167.6 cm; Wt 88.4 kg
--- NOTE | 2017-04-26 06:55 | ERA ---
ER Documentation Chief Complaint Date/Time DATE: 04/26/17 TIME: 06:53 Chief Complaint SENT FROM [facility] WITH AMS. DIRECT ADMIT HPI 46-year-old woman boarding here after being admitted for acute hepatic encephalopathy and altered mentation. She was seen and evaluated at another emergency department and treated there. She has had no fevers or chills, no blood per rectum, no complaints of chest pain or shortness of breath. Please refer to printed dictation which is in the chart for details of earlier management. ROS All systems reviewed and are negative except as per history of present illness. Medications Home Meds Active Scripts Lactulose* (Lactulose*) 10 Gm/15 Ml Solution, 10 GM PO BID for 30 Days, ML 2 Refills Prov:YESENIA GUNN S. 11/24/16 [Thiamine] 100 MG TAB No Conflict Check, 100 MG PO DAILY, #30 2 Refills Prov:YESENIA GUNN S. 11/24/16 Gabapentin* (Neurontin*) 300 Mg Capsule, 300 MG PO TID, #90 CAP 1 Refill Prov:YESENIA GUNN S. 11/24/16 Reported Medications Lorazepam* (Lorazepam*) 1 Mg Tablet, 1 MG PO BID Y for ANXIETY, #30 TAB 02/13/17 Ondansetron Hcl* (Zofran*) 4 Mg Tablet, 4 MG PO Q6H Y for NAUSEA AND OR VOMITING , TAB 01/07/17 Albuterol Sulfate* (Ventolin HFA*) 18 Gm Hfa.aer.ad, 2 PUFF INHALATION Q4H, #1 INHALER 01/07/17 Tramadol Hcl* (Ultram*) 50 Mg Tablet, 25 MG PO Q6H Y for PAIN LEVEL 4-10, TAB 01/07/17 Spironolactone* (Spironolactone*) 100 Mg Tablet, 50 MG PO BID, TAB HOLD IF SBP<100 01/07/17 Oxycodone Hcl* (IR) (Oxycodone Hcl*) 15 Mg Tablet, 15 MG PO Q12H Y for PAIN, TAB 01/07/17 Olanzapine* (Olanzapine* ODT) 5 Mg Tab.rapdis, 5 MG PO Q12, #30 TAB 01/07/17 Hydroxyzine Hcl* (Hydroxyzine Hcl*) 25 Mg Tablet, 25 MG PO Q6H Y for ITCHING, # 30 TAB 01/07/17 Furosemide* (Furosemide*) 40 Mg Tablet, 40 MG PO BID, TAB 01/07/17 Famotidine* (Famotidine*) 20 Mg Tablet, 20 MG PO Q12H, #60 TAB 01/07/17 Zolpidem Tartrate* (Ambien*) 5 Mg Tablet, 5 MG PO Q24H Y for INSOMNIA, #30 TAB 01/07/17 Allergies Allergies: Coded Allergies: tramadol (Verified Allergy, Intermediate, "BREAKS OUT", 03/13/17) acetaminophen (Verified Allergy, Unknown, 01/07/17) butorphanol (Verified Allergy, Unknown, 01/07/17) codeine (Verified Allergy, Unknown, 01/07/17) ketorolac (Verified Allergy, Unknown, BLISTERS, 02/13/17) phenobarbital (Verified Allergy, Unknown, 01/07/17) phenytoin (Verified Allergy, Unknown, 01/07/17) PMhx/Soc Cirrhosis, ascites, psychiatric disorder, alcohol and methamphetamine abuse, diabetes mellitus, hypertension, dyslipidemia History of Surgery: No Anesthesia Reaction: No Hx Neurological Disorder: Yes (AMS,CVA, ANGIO) Hx Respiratory Disorders: Yes (pleural efusion) Hx Cardiac Disorders: Yes (UT, STENT, CHF) Hx Psychiatric Problems: Yes (ANXIETY) Hx Miscellaneous Medical Probl: Yes (DM, CIRRHOSIS) Hx Alcohol Use: Yes (FORMER USE) Hx Substance Use: Yes (FORMER USE) Hx Tobacco Use: Yes (FORMER USE) Smoking Status: Former smoker FmHx Family History: No diabetes Physical Exam Vitals Vital Signs Date Time Temp Pulse Resp B/P Pulse Ox O2 Delivery O2 Flow Rate FiO2 04/26/17 06:23 98.5 75 18 95/54 98 Physical Exam Const: Well-developed well-nourished woman, no apparent distress, looks nontoxic in appearance Head: Atraumatic Eyes: Normal Conjunctiva ENT: Normal External Ears, Nose and Mouth. Neck: Full range of motion..~ No meningismus. Resp: Clear to auscultation bilaterally Cardio: Regular rate and rhythm, no murmurs Abd: Soft, non tender,Positive hepatomegaly, no rigidity or rebound Skin: No petechiae or rashes Back: No midline or flank tenderness Ext: No cyanosis, or edema Neur: Awake and alert Psych: Normal Mood and Affect Procedures/MDM IV line was established patient was placed on monitor and storage bin tender rhythm strip revealed a sinus rhythm at about 70 bpm with upright P and T waves. Patient was afebrile. I reviewed medical records and management in the prior ED. Patient is resting comfortably at this time and has no complaints, vital signs are normal and she is admitted for acute hepatic encephalopathy. Departure Diagnosis: Primary Impression: Acute hepatic encephalopathy Additional Impression: Cirrhosis Qualified Code: K70.31 - Alcoholic cirrhosis of liver with ascites Condition: DALILA Soler MD Apr 26, 2017 06:55
[2017-04-26] MEDS ORDERED: NACL 0.9% 3 ML SYG IV SCH (10:30)
[2017-04-26] MEDS ORDERED: ZOLPIDEM 5 MG TAB PO PRN (10:30)
[2017-04-26] MEDS ORDERED: traMADol 50 MG TAB PO PRN (10:30)
[2017-04-26] MEDS ORDERED: ONDANSETRON 4 MG INJ IV PRN (10:30)
--- NOTE | 2017-04-26 10:33 | HP ---
Date/Time of Note Date/Time of Note DATE: 04/26/17 TIME: 10:33 Assessment/Plan VTE Prophylaxis VTE Prophylaxis Intervention: SCD's Assessment/Plan Assessment/Plan This is a 46-year-old female who was brought for worsening of left chest mass. 1. Acute on chronic metabolic/hepatic encephalopathy with hyperammonemia. Not , patient also takes multiple BLOWER ROOM ATTENDANT depressants at the [facility]. -Start lactulose and rifaximin -Continue neuro checks. -Hold all BLOWER ROOM ATTENDANT depressants. 2. Acute kidney injury, likely on chronic kidney disease. Patient was treated with IV fluids from outside hospital. -Avoid nephrotoxins and monitor renal function closely. 3. Chronic thrombocytopenia secondary to liver disease -We will continue to monitor and transfuse as indicated. 4. Hepatocellular carcinoma -Supportive care. Patient had a post for DNR with comfort focused care 5. History of decompensated alcoholic liver cirrhosis with ascites requiring paracentesis. -We will monitor. Currently, patient asymptomatic. -Hold Lasix for now as patient appears dehydrated at this time. We will continue Aldactone. 6. History of psychiatric disorders. 7. History of substance abuse including alcohol and methamphetamine. 8. History of diabetes. Will repeat A1c. -Insulin while in-house. 9. History of dyslipidemia. Off treatment. -Obtain lipid panel. 10. History of right pleural effusion and thoracentesis. Prophylaxis: SCDs PUD prophylaxis on Protonix Plan: Patient will be admitted to inpatient medical surgical floor. As noted, patient has a post indicating DNR with comfort focus care. We will continue supportive care at this moment. Patient will be treated with lactulose and rifaximin. If her neuro status improves over the next 24 hours to baseline, likely start discharge planning back to [facility] as patient had previously indicated no further aggressive treatments. Approximately 60 minutes was spent on this history and physical. Case discussed with Dr. Varner. HPI/ROS Admit Date/Time Admit Date/Time Hx of Present Illness This is a very unfortunate 46-year-old [facility] resident with a past medical history of metabolic encephalopathy, former smoker and meth abuse, personality disorders, previous homelessness, dysphagia, myocardial infarction, diagnostic cardiac catheterization in 11/05/2015,, anxiety disorders, hepatocellular carcinoma, CHF, cirrhosis, type 2 diabetes, hepatitis C, legally blind, seizures, cerebrovascular accident, and who was initially brought to [facility] for worsening level of consciousness over the past few days. Patient was noted with dehydration and of outside facility and was treated with normal saline and was transferred to [facility] for insurance purposes. Upon review of outside hospital workup, patient had elevated ammonia 105, BUN 26, creatinine 1.25 with GFR 46 and platelet 62,000. She also had a low albumin 2.5. CT from outside hospital was negative for any acute ischemic events. In the [facility], patient also takes Neurontin, Ativan and narcotic pain medications. Patient was admitted for further evaluation. ROS Complete ROS is unable to assess secondary to patient's mental status. However , patient was able to answer few questions and please see HPI. PMH/Family/Social Past Medical History See HPI Past Surgical History See HPI Social History See HPI Smoking Status: Former smoker Exam/Review of Systems Vital Signs Vitals Vital Signs Date Time Temp Pulse Resp B/P Pulse Ox O2 Delivery O2 Flow Rate FiO2 04/26/17 09:53 78 16 117/72 98 Room Air 04/26/17 08:04 98.2 Exam Exam General: 46-year-old female who looks older than her actual age. HEENT: Normocephalic, Atraumatic, No laceration or hematoma; Eyes: PEERL, Conjunctiva clear, Anicteric sclera Neck: Supple without any lymphadenopathy, nontender, no JVD, no carotid bruits, trachea midline, no thyromegaly Cardiac: S1, S2 auscultated, regular rhythm and rate, no mumurs or gallop Pulmonary: Normal respiratory effort. Chest clear to auscultation bilaterally, no adventitious breath sounds GI: Abdomen normal to inspection. Soft, non tender, non- distended, no masses, no rebound tenderness or guarding. Bowel sounds active on all four quadrants Genitourinary: Deferred Extremities: No cyanosis, clubbing, or edema. Pulses [2+] bilaterally. Full ROM on all four extremities. No focal weakness appreciated. Neurologic: Alert to person. Disoriented to place, time and situation. Skin: Clean,dry, and intact. No ecchymosis, no rashes, or lesions KIAN ESCOBEDO NP Apr 26, 2017 10:33
[2017-04-26] MEDS ORDERED: GLUCOSE GEL 15 GRAM TUBE BUCCAL PRN (11:00)
[2017-04-26] MEDS ORDERED: DEXTROSE 50% 50 ML SYRINGE IV PRN ×2 (11:00)
[2017-04-26] MEDS ORDERED: GLUCAGON 1 MG INJ IM PRN (11:00)
[2017-04-26] MEDS ORDERED: GLUCOSE GEL 15 GRAM TUBE PO PRN ×2 (11:00)
[2017-04-26] MEDS: SOD CHLORIDE 0.9% 1,000 ML IV SCH ×2 (11:22→23:45)
[2017-04-26] MEDS: INSULIN ASPART [NOVOLOG] 3 ML PEN SC SCH ×3 (11:37→21:00)
[2017-04-26] MEDS: LACTULOSE 30ML CUP PO SCH ×2 (13:39→21:27)
[2017-04-26 15:23] VITALS: TEMP 98.1
[2017-04-26 15:35] VITALS: BP 130/71; PULSE 81; RESP 18; Ht 167.6 cm; Wt 88.4 kg
[2017-04-26] MEDS ORDERED: OXYC15TA PO (19:57)
[2017-04-26] MEDS ORDERED: LACT1CAP57 PO (19:57)
[2017-04-26] MEDS ORDERED: LORA1TAB PO (19:57)
[2017-04-26] MEDS ORDERED: HALOPERIDOL 5 MG INJ IM PRN (20:00)
[2017-04-26] MEDS: FAMOTIDINE 20 MG TAB PO SCH (20:21)
[2017-04-26] MEDS: oxyCODONE 15 MG TAB PO PRN (21:27)
[2017-04-26 22:03] VITALS: BP 107/51; RESP 22
[2017-04-26] MEDS: OLANZAPINE (ODT) 5 MG TAB PO SCH (22:24)
[2017-04-26] MEDS: RIFAXIMIN 550 MG TAB PO SCH (22:24)
[2017-04-26] MEDS: SPIRONOLACTONE 50 MG TAB PO SCH (22:24)
[2017-04-26] MEDS: LORAZEPAM 2 MG INJ IV PRN (23:27)
[2017-04-27] MEDS ORDERED: ACCU-CHEK XX SCH (02:00)
[2017-04-27 03:05] VITALS: BP 110/49; RESP 20
[2017-04-27] MEDS: LACTULOSE 30ML CUP PO SCH ×2 (05:57→13:23)
[2017-04-27] MEDS: SOD CHLORIDE 0.9% 1,000 ML IV SCH (05:57)
[2017-04-27 06:39] LABS: ABNORMAL IP MESSAGE 1; BASOPHILS % 0.8 % (0.0-2.0); EOSINOPHILS # 0.3 10^3/ul (0.0-0.5); EOSINOPHILS % 10.2 % (0.0-7.0); HEMATOCRIT 31.4 % (37.0-47.0); HEMOGLOBIN 10.9 g/dl (12.0-16.0); LYMPHOCYTES # 0.7 10^3/ul (0.8-2.9); LYMPHOCYTES % 28.9 % (15.0-51.0); MEAN CORPUSCULAR HEMOGLOBIN 33.7 pg (29.0-33.0); MEAN CORPUSCULAR HGB CONC 34.7 g/dl (32.0-37.0); MEAN CORPUSCULAR VOLUME 97.2 fl (82.0-101.0); MEAN PLATELET VOLUME 11.7 fl (7.4-10.4); MONOCYTE # 0.4 10^3/ul (0.3-0.9); MONOCYTES % 14.2 % (0.0-11.0); NEUTROPHILS % 45.5 % (39.0-77.0); RED BLOOD COUNT 3.23 10^6/ul (4.20-5.40); RED CELL DISTRIBUTION WIDTH 13.8 % (11.5-14.5); WHITE BLOOD COUNT 2.5 10^3/ul (4.8-10.8)
[2017-04-27 06:47] LABS: POSITIVE DIFF @See below
[2017-04-27 06:48] LABS: PLATELET COUNT 50 10^3/UL (140-415)
[2017-04-27 06:53] LABS: ALBUMIN 2.1 g/dl (3.3-4.9); ALBUMIN/GLOBULIN RATIO 0.61; BILIRUBIN,INDIRECT 1.6 mg/dl (0-1.1); BILIRUBIN,TOTAL 1.6 mg/dl (0.2-1.3); CALCIUM 7.5 mg/dl (8.4-10.2); CHOL/HDL RATIO 2.4 RATIO; CREATININE 0.84 mg/dl (0.44-1.00); MAGNESIUM 1.9 mg/dl (1.7-2.5); PHOSPHORUS 3.4 mg/dl (2.5-4.9); POTASSIUM 3.8 mmol/L (3.5-5.1); TOTAL PROTEIN 5.5 g/dl (6.1-8.1)
[2017-04-27 07:34] VITALS: BP 95/54; RESP 18
[2017-04-27 07:57] LABS: THYROID STIMULATING HORMONE 0.497 MIU/L (0.465-4.680)
[2017-04-27] MEDS: INSULIN ASPART [NOVOLOG] 3 ML PEN SC SCH ×2 (08:00→12:00)
[2017-04-27] MEDS: FAMOTIDINE 20 MG TAB PO SCH (08:29)
[2017-04-27] MEDS: OLANZAPINE (ODT) 5 MG TAB PO SCH (08:29)
[2017-04-27] MEDS: SPIRONOLACTONE 50 MG TAB PO SCH (08:30)
[2017-04-27] MEDS: RIFAXIMIN 550 MG TAB PO SCH (08:30)
[2017-04-27] MEDS: LORAZEPAM 2 MG INJ IV PRN (12:31)
--- NOTE | 2017-04-27 12:57 | PDOCDIS ---
Discharge Instructions CONDITION Patient Condition: Stable HOME CARE INSTRUCTIONS: Your diet recommendation is: SOFT DIET FOLLOW UP/APPOINTMENTS Follow-up Plan 1.Follow up with primary care physician in 1 week If you don't have one please let someone know, we can give you resources that may help you pick one. You may also call your insurance company to assign one to you. Review your medication list with your nurse before leaving and if you need new prescriptions please let your nurse know. I may have made changes to your home medications or given you new prescriptions, please let your primary doctor know as well. Stay compliant with your medications and report any side effects to your PCP or pharmacist. Return to the ER if you have any concerns and cannot reach your doctors or call your insurance company, they usually have a nurse that can help you. 2. Call 911 or go to the nearest emergency room if experiencing loss of consciousness, dizziness, chest pain, shortness of breath, vomiting/abdominal pain, speech difficulties, motor weakness or any unusual symptoms. KIAN ESCOBEDO NP Apr 27, 2017 12:57
[2017-04-27] MEDS ORDERED: LACT10SO5 PO (13:04)
[2017-04-27] MEDS ORDERED: RIFA550T4 PO (13:04)
[2017-04-27] MEDS ORDERED: FURO40TA4 PO (13:04)
[2017-04-27] MEDS: oxyCODONE 15 MG TAB PO PRN (13:23)
[2017-04-27 14:46] VITALS: BP 104/60; RESP 18
--- NOTE | 2017-04-27 15:56 | DS ---
Date/Time of Note Date/Time of Note DATE: 04/27/17 TIME: 15:51 Discharge Summary Admission/Discharge Info Admit Date/Time Apr 26, 2017 at 07:00 Discharge Date/Time Discharge Diagnosis 1. Acute on chronic metabolic/hepatic encephalopathy with hyperammonemia. Resolved. Patient is back to her baseline mental status. 2. Acute kidney injury secondary to dehydration, on chronic kidney disease. Resolved 3. Chronic thrombocytopenia secondary to liver disease 4. Hepatocellular carcinoma 5. History of decompensated alcoholic liver cirrhosis with ascites requiring paracentesis. 6. History of psychiatric disorders. 7. History of substance abuse including alcohol and methamphetamine. 8. History of diabetes. 9. History of dyslipidemia. 10. History of right pleural effusion and thoracentesis. Patient Condition: Stable Hx of Present Illness This is a very unfortunate 46-year-old [facility]f resident with a past medical history of metabolic encephalopathy, former smoker and meth abuse, personality disorders, previous homelessness, dysphagia, myocardial infarction, diagnostic cardiac catheterization in 11/05/2015,, anxiety disorders, hepatocellular carcinoma, CHF, cirrhosis, type 2 diabetes, hepatitis C, legally blind, seizures, cerebrovascular accident, and who was initially brought to [facility] for worsening level of consciousness over the past few days. Patient was noted with dehydration and of outside facility and was treated with normal saline and was transferred to [facility] for insurance purposes. Upon review of outside hospital workup, patient had elevated ammonia 105, BUN 26, creatinine 1.25 with GFR 46 and platelet 62,000. She also had a low albumin 2.5. CT from outside hospital was negative for any acute ischemic events. In the alf, patient also takes Neurontin, Ativan and narcotic pain medications. Patient was admitted for further evaluation. Hospital Course Patient was started on lactulose and rifaximin. Neuro status was back to baseline. It is likely that patient received extensive dose of ORTHOPEDIC PODIATRIST depressants in the alf that caused altered mental status along with hyperammonemia which was resolved without any further intervention. However, ammonia was treated with lactulose with improvement. Patient was also dehydrated with acute kidney injury and was resolved with fluids. She was started on a soft diet which she was able to tolerate. She was continued on all other alf medications except ORTHOPEDIC PODIATRIST depressants. At this time, she is feeling back to her baseline and there is no further inpatient workup indicated. Ammonia level is trending down to normal. Patient is stable for discharge back to alf. Of note, she has a POLST indicated above comfort focused care. Disposition: Patient will be discharged back to residential facility as her mental status is back to baseline. Medications were carefully reviewed and adjusted as indicated. Approximately 60 minutes was spent in coordinating the discharge on this patient. Case discussed with Dr. Varner. Home Meds Active Scripts Rifaximin* (Xifaxan*) 550 Mg Tablet, 550 MG PO BID for 5 Days, TAB Prov:ESCOBEDO,KIAN V. ACCOUNT ASSISTANT 04/27/17 Furosemide* (Furosemide*) 40 Mg Tablet, 20 MG PO DAILY for 30 Days, TAB Prov:ESCOBEDO,KIAN V. ACCOUNT ASSISTANT 04/27/17 Lactulose* (Lactulose*) 10 Gm/15 Ml Solution, 20 GM PO BID for 30 Days, ML 2 Refills Prov:ESCOBEDO,KIAN V. ACCOUNT ASSISTANT 04/27/17 [Thiamine] 100 MG TAB No Conflict Check, 100 MG PO DAILY, #30 2 Refills Prov:YESENIA GUNN S. 11/24/16 Gabapentin* (Neurontin*) 300 Mg Capsule, 300 MG PO TID, #90 CAP 1 Refill Prov:OSMAN GUNNP S. 11/24/16 Reported Medications Lactobacillus Rhamnosus* (Culturelle*) 1 Each Cap.sprink, 1 CAP PO BID, CAP 04/26/17 Lorazepam* (Lorazepam*) 1 Mg Tablet, 1 MG PO BID Y for ANXIETY, #30 TAB 02/13/17 Ondansetron Hcl* (Zofran*) 4 Mg Tablet, 4 MG PO Q6H Y for NAUSEA AND OR VOMITING , TAB 01/07/17 Albuterol Sulfate* (Ventolin HFA*) 18 Gm Hfa.aer.ad, 2 PUFF INHALATION Q4H, #1 INHALER 01/07/17 Tramadol Hcl* (Ultram*) 50 Mg Tablet, 25 MG PO Q6H Y for PAIN LEVEL 4-10, TAB 01/07/17 Spironolactone* (Spironolactone*) 100 Mg Tablet, 50 MG PO BID, TAB HOLD IF SBP<100 01/07/17 Oxycodone Hcl* (IR) (Oxycodone Hcl*) 15 Mg Tablet, 15 MG PO Q12H Y for PAIN, TAB 01/07/17 Olanzapine* (Olanzapine* ODT) 5 Mg Tab.rapdis, 5 MG PO Q12, #30 TAB 01/07/17 Hydroxyzine Hcl* (Hydroxyzine Hcl*) 25 Mg Tablet, 25 MG PO Q6H Y for ITCHING, # 30 TAB 01/07/17 Famotidine* (Famotidine*) 20 Mg Tablet, 20 MG PO Q12H, #60 TAB 01/07/17 Zolpidem Tartrate* (Ambien*) 5 Mg Tablet, 5 MG PO Q24H Y for INSOMNIA, #30 TAB 01/07/17 Discontinued Reported Medications Oxycodone Hcl* (IR) (Oxycodone Hcl*) 15 Mg Tablet, 15 MG PO Q8 Y for PAIN, TAB 04/26/17 Lorazepam* (Lorazepam*) 1 Mg Tablet, 1 MG PO Q12 Y for ANXIETY, #60 TAB 04/26/17 Follow-up Plan Patient Condition: Stable HOME CARE INSTRUCTIONS: Your diet recommendation is: SOFT DIET FOLLOW UP/APPOINTMENTS Follow-up Plan 1.Follow up with primary care physician in 1 week If you don't have one please let someone know, we can give you resources that may help you pick one. You may also call your insurance company to assign one to you. Review your medication list with your nurse before leaving and if you need new prescriptions please let your nurse know. I may have made changes to your home medications or given you new prescriptions, please let your primary doctor know as well. Stay compliant with your medications and report any side effects to your PCP or pharmacist. Return to the ER if you have any concerns and cannot reach your doctors or call your insurance company, they usually have a nurse that can help you. 2. Call 911 or go to the nearest emergency room if experiencing loss of consciousness, dizziness, chest pain, shortness of breath, vomiting/abdominal pain, speech difficulties, motor weakness or any unusual symptoms. Primary Care Provider Kelsey Peck Pending Labs Laboratory Tests Test 04/26/17 17:35 04/26/17 22:27 04/27/17 05:56 04/27/17 08:28 Bedside Glucose 134mg/dL (70-220) 118mg/dL (70-220) 103mg/dL (70-220) White Blood Count 2.510^3/ul (4.8-10.8) Red Blood Count 3.2310^6/ul (4.20-5.40) Hemoglobin 10.9g/dl (12.0-16.0) Hematocrit 31.4% (37.0-47.0) Mean Corpuscular Volume 97.2fl (82.0-101.0) Mean Corpuscular Hemoglobin 33.7pg (29.0-33.0) Mean Corpuscular Hemoglobin Concent 34.7g/dl (32.0-37.0) Red Cell Distribution Width 13.8% (11.5-14.5) Platelet Count 5010^3/UL (140-415) Mean Platelet Volume 11.7fl (7.4-10.4) Neutrophils % 45.5% (39.0-77.0) Lymphocytes % 28.9% (15.0-51.0) Monocytes % 14.2% (0.0-11.0) Eosinophils % 10.2% (0.0-7.0) Basophils % 0.8% (0.0-2.0) Nucleated Red Blood Cells % 0.0/100WBC (0.0-0.0) Neutrophils # (Manual) 1.110^3/ul (1.7-7.5) Lymphocytes # 0.710^3/ul (0.8-2.9) Monocytes # 0.410^3/ul (0.3-0.9) Eosinophils # 0.310^3/ul (0.0-0.5) Basophils # 0.010^3/ul (0.0-0.1) Nucleated Red Blood Cells # 0.010^3/ul (0.0-0.0) Sodium Level 140mmol/L (135-144) Potassium Level 3.8mmol/L (3.5-5.1) Chloride Level 109mmol/L (97-110) Carbon Dioxide Level 22mmol/L (21-31) Anion Gap 13 (8-16) Blood Urea Nitrogen 19mg/dl (7-20) Creatinine 0.84mg/dl (0.44-1.00) Glucose Level 105mg/dl (70-220) Hemoglobin A1c 4.3% (0-5.9) Calcium Level 7.5mg/dl (8.4-10.2) Phosphorus Level 3.4mg/dl (2.5-4.9) Magnesium Level 1.9mg/dl (1.7-2.5) Total Bilirubin 1.6mg/dl (0.2-1.3) Direct Bilirubin 0.00mg/dl (0.00-0.20) Indirect Bilirubin 1.6mg/dl (0-1.1) Aspartate Amino Transf (AST/SGOT) 71IU/L (15-46) Alanine Aminotransferase (ALT/SGPT) 53IU/L (13-69) Alkaline Phosphatase 102IU/L (42-121) Ammonia 43umol/l (9-30) Total Protein 5.5g/dl (6.1-8.1) Albumin 2.1g/dl (3.3-4.9) Globulin 3.40g/dl (1.3-3.2) Albumin/Globulin Ratio 0.61 Triglycerides Level 35mg/dl (0-149) Cholesterol Level 75mg/dl (100-200) LDL Cholesterol, Calculated 37mg/dl HDL Cholesterol 31mg/dl (34-88) Cholesterol/HDL Ratio 2.4RATIO Thyroid Stimulating Hormone (TSH) 0.497MIU/L (0.465-4.680) Test 04/27/17 12:36 Bedside Glucose 134mg/dL (70-220) KIAN ESCOBEDO V. ACCOUNT ASSISTANT Apr 27, 2017 15:55
== END 2017-04-27 16:20 | DRG 441 ==
LOC: FTE 06:05 → PP2 07:00
PROVIDERS: ADMIT Hospitalist; ATTEND Hospitalist
DX: K72.00 Acute and subacute hepatic failure without coma (principal); G93.41 Metabolic encephalopathy; C22.0 Liver cell carcinoma; N17.9 Acute kidney failure, unspecified; E72.20 Disorder of urea cycle metabolism, unspecified; D69.59 Other secondary thrombocytopenia; E11.22 Type 2 diabetes mellitus with diabetic chronic kidney disease; I13.0 Hypertensive heart and chronic kidney disease with heart failure and stage 1 through stage 4 chronic kidney disease, or unspecified chronic kidney disease; I50.9 Heart failure, unspecified; E86.0 Dehydration; Z66 Do not resuscitate; E78.5 Hyperlipidemia, unspecified; F10.10 Alcohol abuse, uncomplicated; F15.10 Other stimulant abuse, uncomplicated; I25.2 Old myocardial infarction; Z95.1 Presence of aortocoronary bypass graft; Z87.891 Personal history of nicotine dependence; K70.31 Alcoholic cirrhosis of liver with ascites; N18.9 Chronic kidney disease, unspecified; B18.2 Chronic viral hepatitis C; H54.8 Legal blindness, as defined in USA; K72.10 Chronic hepatic failure without coma; F60.9 Personality disorder, unspecified; F41.9 Anxiety disorder, unspecified; Z86.73 Personal history of transient ischemic attack (TIA), and cerebral infarction without residual deficits
CPT/HCPCS: 80053; 80061; 82140; 82962; 83036; 83735; 84100; 84443; 85025; 87086; J1630; J1815; J2060; J7030